=== PATIENT | female | born 1945 | race Caucasian/White ===

== ENCOUNTER 2017-08-26 17:47 | Inpatient (IN) | payer MEDICARE ==
[~2017-08-26] VITALS: Ht 165.1 cm; Wt 65.5 kg
[2017-08-26] MEDS ORDERED: FERR324T8 PO (18:42)
[2017-08-26] MEDS ORDERED: DONE5TAB7 PO (18:42)
[2017-08-26] MEDS ORDERED: ASCO500T2 PO (18:42)
[2017-08-26] MEDS ORDERED: PANT40TA5 PO (18:42)
[2017-08-26] MEDS ORDERED: ONDA4TAB7 PO (18:42)
[2017-08-26] MEDS ORDERED: BISA5TAB4 PO (18:42)
[2017-08-26] MEDS ORDERED: ESCITALOPRAM OX20 MG PO (18:42)
[2017-08-26] MEDS ORDERED: MAGN400O7 PO (18:42)
[2017-08-26] MEDS ORDERED: CALC500T PO (18:42)
[2017-08-26] MEDS ORDERED: LORA-434 PO (18:42)
[2017-08-26] MEDS ORDERED: ACET500T68 PO (18:42)
[2017-08-26] MEDS ORDERED: METHYL SALICYLATE/MENTHOL TOPICAL OINTMENT 29GM TUBE. TP PRN (19:30)
[2017-08-26] MEDS ORDERED: MAG HYDROX/AL HYDROX/SIMETH 30 ML ORAL.SUSP PO PRN (19:30)
[2017-08-26] MEDS ORDERED: MAGNESIUM HYDROXIDE 2,400 MG/30 ML ORAL.SUSP. PO PRN (19:30)
[2017-08-26] MEDS ORDERED: BISACODYL TAB 5 MG TABLET.DR. PO PRN (19:45)
[2017-08-26] MEDS ORDERED: CALCIUM CARBONATE 500 MG TABLET PO PRN (19:45)
[2017-08-26 20:18] LABS: BASO % 1 % (0-3); EOS # 0.1 x10^3/uL (0.0-0.7); EOS % 2 % (0-3); HEMATOCRIT 41.1 % (36.0-47.0); HEMOGLOBIN 13.7 g/dL (12.0-15.5); LYMPH # 2.1 x10^3/uL (1.0-4.8); LYMPH % 31 % (24-48); MEAN CORPUSCULAR HEMOGLOBIN 31 pg (25-35); MEAN CORPUSCULAR HGB CONC 33 g/dL (31-37); MEAN CORPUSCULAR VOLUME 92 fL (79-100); MONO # 0.6 x10^3/uL (0.0-1.1); MONO % 9 % (0-9); NEUT # 3.9 x10^3uL (1.8-7.7); NEUT % 57 % (31-73); PLATELET COUNT 231 x10^3/uL (140-400); RED BLOOD COUNT 4.49 x10^6/uL (3.50-5.40); RED CELL DISTRIBUTION WIDTH 13.8 % (11.5-14.5); WHITE BLOOD COUNT 6.9 x10^3/uL (4.0-11.0)
[2017-08-26 20:26] LABS: ALBUMIN 3.1 g/dL (3.4-5.0); CALCIUM 9.3 mg/dL (8.5-10.1); CREATININE 0.9 mg/dL (0.6-1.0); GFR 61.4; POTASSIUM 3.9 mmol/L (3.5-5.1); TOTAL BILIRUBIN 0.3 mg/dL (0.2-1.0); TOTAL PROTEIN 6.3 g/dL (6.4-8.2)
[2017-08-26 20:49] VITALS: BP 147/92
[2017-08-26] MEDS: LORazepam 1 MG TABLET PO SCH (20:54)
[2017-08-26] MEDS: ASCORBIC ACID 500 MG TABLET PO SCH (20:54)
[2017-08-27 06:12] VITALS: BP 168/80
[2017-08-27 06:24] LABS: BILIRUBIN,URINE NEG (NEG); CLARITY,URINE CLEAR; COLOR,URINE YELLOW; GLUCOSE,URINE NEG (NEG); NITRITE,URINE NEG (NEG); RBC,URINE OCC /HPF (0-2); UROBILINOGEN,URINE 0.2 mg/dL (0.2 mg/dL)
[2017-08-27 06:25] LABS: BACTERIA,URINE 0 /HPF (0-FEW); HYALINE CASTS, URINE OCC /HPF; SQUAMOUS EPITHELIAL CELL,UR FEW /LPF
[2017-08-27] MEDS: LORazepam 1 MG TABLET PO SCH ×4 (07:48→19:41)
[2017-08-27] MEDS: ASCORBIC ACID 500 MG TABLET PO SCH ×2 (07:48→19:41)
[2017-08-27] MEDS: CITALOPRAM 20 MG TABLET. PO SCH (07:51)
[2017-08-27] MEDS: DONEPEZIL HCL 5 MG TABLET. PO SCH (07:52)
[2017-08-27] MEDS: PANTOPRAZOLE 40 MG TABLET. PO SCH (07:52)
[2017-08-27] MEDS: FERROUS GLUCONATE 324 MG TABLET PO SCH ×2 (08:07→18:06)
[2017-08-27 12:02] LABS: THYROID STIM HORMONE (TSH) 6.93 uIU/mL (0.358-3.740)
[2017-08-27 12:07] LABS: T3 TOTAL 108 ng/dL (71-180); THYROXINE 6.8 ug/dL (4.5-12.0)
[2017-08-27 16:22] VITALS: BP 128/85
[2017-08-27 17:21] LABS: HEMOGLOBIN A1C 5.2 % (4.8-5.6)
[2017-08-28 06:08] VITALS: BP 168/92
[2017-08-28] MEDS: LORazepam 1 MG TABLET PO SCH ×4 (09:37→19:47)
[2017-08-28] MEDS: ASCORBIC ACID 500 MG TABLET PO SCH ×2 (09:37→19:47)
[2017-08-28] MEDS: DONEPEZIL HCL 5 MG TABLET. PO SCH (09:37)
[2017-08-28] MEDS: CITALOPRAM 20 MG TABLET. PO SCH (09:38)
[2017-08-28] MEDS: PANTOPRAZOLE 40 MG TABLET. PO SCH (09:38)
[2017-08-28] MEDS: FERROUS GLUCONATE 324 MG TABLET PO SCH ×2 (09:40→17:07)
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
[2017-08-28] MEDS: CYANOCOBALAMIN (VITAMIN B-12) 1,000 MCG/ML VIAL IM SCH (14:17)
[2017-08-28] MEDS: CHOLECALCIFEROL (VITAMIN D3) 50,000 UNIT CAPSULE PO SCH (14:17)
[2017-08-28 16:13] VITALS: BP 147/92
[2017-08-29 05:48] VITALS: BP 171/89
[2017-08-29] MEDS: LORazepam 1 MG TABLET PO SCH ×3 (08:37→19:20)
[2017-08-29] MEDS: SERTRALINE 50 MG TABLET. PO SCH (08:37)
[2017-08-29] MEDS: ASCORBIC ACID 500 MG TABLET PO SCH ×2 (08:37→19:18)
[2017-08-29] MEDS: CYANOCOBALAMIN (VITAMIN B-12) 1,000 MCG/ML VIAL IM SCH (08:37)
[2017-08-29] MEDS: PANTOPRAZOLE 40 MG TABLET. PO SCH (08:37)
[2017-08-29] MEDS: DONEPEZIL HCL 5 MG TABLET. PO SCH (08:37)
[2017-08-29] MEDS: FERROUS GLUCONATE 324 MG TABLET PO SCH ×2 (08:37→17:00)
[2017-08-29] MEDS ORDERED: FLU VACC QS2017-18 (36MOS+)/PF 0.5 ML SYRINGE. VAX IM ONE (09:00)
[2017-08-29] MEDS ORDERED: PNEUMOC CONJ VACC 23-VALENT 0.5 ML VIAL. VAX IM ONE (09:00)
[2017-08-29 15:46] VITALS: BP 129/82
--- NOTE | 2017-08-29 18:23 | PN ---
DATE: 08/27/2017 This is a late entry for 08/27/2017 covers elements not covered in my initial note of 08/27/2017. SUBJECTIVE: Reviewed information from Dr. Agudelo, discussed with nursing staff. The patient remains confused, withdrawn and quite impulsive, refused to use the walker, has an unsteady gait, has scoliosis, takes naps off and on during the day. REVIEW OF SYSTEMS: No CV, , pulmonary, eye system symptoms on review. Reliability poor. She had one sock off her foot, oblivious to what had happened and there is a fall risk. MENTAL STATUS EXAM: Oriented to herself. Insight, judgment, recent and remote memory, attention, concentration, fund of knowledge poor, consistent with her diagnosis mentioned in my initial note. IMPRESSION: Major neurocognitive disorder, Alzheimer, vascular with depression, delusion, behavioral disturbance. PLAN: Continue current psychotropics, Ativan is 1 mg 4 times a day and we will reduce it by 0.25 mg every 3 days till we bring it down to 2 mg a day. Continue Aricept, Celexa, along with Zyprexa p.r.n. for now and we will go ahead and change the Celexa to Zoloft 50 mg a day. I feel Zoloft would have a greater efficacy on her anxiety and impulsive symptoms as an antidepressant. She is medication compliant, wanders. REX ANGELES MD DR: ADA/norah JOB#: [id number] / [id number]
--- NOTE | 2017-08-29 22:20 | PN ---
DATE: 08/28/2017 This is a late entry for 08/28/2017 covers elements not covered in my initial note of 08/28/2017. SUBJECTIVE: I met with the patient evening of 08/28/2017. The patient slept 7 hours. She takes her medications whole, somewhat sedated, walking with her eyes closed, quite confused, aware of her name and date of , smiling at times, but not oriented to anything else. REVIEW OF SYSTEMS: Ambulation impaired, unsteady gait. No CV, , pulmonary, eye, ENT system symptoms on review. Reliability poor. MENTAL STATUS EXAM: Oriented to herself. Insight, judgment, recent and remote memory, attention, concentration, fund of knowledge poor, consistent with her diagnosis mentioned in my initial note. IMPRESSION: Major neurocognitive disorder, Alzheimer, vascular with depression, delusion, behavioral disturbance. PLAN: Taper the Ativan from 4 mg a day slowly down to 2 mg a day, Celexa was changed to Zoloft. Continue Aricept. Reduction of Ativan should help reduce the sedation and some of the confusion as well. MAN Ifeanyi ANGLEES MD DR: ADA/norah JOB#: [id number] / [id number]
[2017-08-30 06:06] VITALS: BP 161/96
[2017-08-30] MEDS: DONEPEZIL HCL 5 MG TABLET. PO SCH (09:14)
[2017-08-30] MEDS: SERTRALINE 50 MG TABLET. PO SCH (09:14)
[2017-08-30] MEDS: FERROUS GLUCONATE 324 MG TABLET PO SCH ×2 (09:14→17:00)
[2017-08-30] MEDS: CYANOCOBALAMIN (VITAMIN B-12) 1,000 MCG/ML VIAL IM SCH (09:14)
[2017-08-30] MEDS: ASCORBIC ACID 500 MG TABLET PO SCH ×2 (09:14→19:17)
[2017-08-30] MEDS: PANTOPRAZOLE 40 MG TABLET. PO SCH (09:14)
[2017-08-30] MEDS: LORazepam 1 MG TABLET PO SCH ×3 (09:15→19:17)
[2017-08-30 16:08] VITALS: BP 111/69
--- NOTE | 2017-08-30 22:02 | PN ---
DATE: 08/29/2017 This is a late entry for 08/29/2017 and covers elements not covered in my initial note of 08/29/2017. I met with the patient the evening of 08/29/2017. The patient has not been aggressive, remains confused, walks with her eyes closed, refuses to talk. REVIEW OF SYSTEMS: Ambulation impaired, with walker. Often refuses to use walker. No CV, , pulmonary, eye, ENT system symptoms on review. MENTAL STATUS EXAM: Oriented to herself. Insight, judgment, recent and remote memory, attention, concentration, fund of knowledge poor, consistent with her diagnosis as mentioned in my initial note. IMPRESSION: Major neurocognitive disorder, Alzheimer, vascular with depression, delusion, behavioral disturbance. Rest unchanged. PLAN: Continue current psychotropics, taper the Ativan gradually. Maintain Zoloft, Aricept, may need to add Seroquel as a mood stabilizer. MAN Ifeanyi ANGELES MD DR: ADA/norah JOB#: [id number] / [id number]
[2017-08-31 05:52] VITALS: BP 147/87
[2017-08-31] MEDS: PANTOPRAZOLE 40 MG TABLET. PO SCH (07:47)
[2017-08-31] MEDS: SERTRALINE 50 MG TABLET. PO SCH (08:34)
[2017-08-31] MEDS: ASCORBIC ACID 500 MG TABLET PO SCH ×2 (08:34→19:15)
[2017-08-31] MEDS: FERROUS GLUCONATE 324 MG TABLET PO SCH ×2 (08:34→17:36)
[2017-08-31] MEDS: CYANOCOBALAMIN (VITAMIN B-12) 1,000 MCG/ML VIAL IM SCH (08:35)
[2017-08-31] MEDS: LORazepam 1 MG TABLET PO SCH ×2 (08:37→13:53)
[2017-08-31] MEDS: DONEPEZIL HCL 10 MG TABLET PO SCH (08:37)
[2017-08-31 15:18] VITALS: BP 111/68
[2017-09-01 05:49] VITALS: BP 134/54
[2017-09-01] MEDS: PANTOPRAZOLE 40 MG TABLET. PO SCH (07:42)
[2017-09-01] MEDS: ASCORBIC ACID 500 MG TABLET PO SCH ×2 (08:38→20:13)
[2017-09-01] MEDS: DONEPEZIL HCL 10 MG TABLET PO SCH (08:38)
[2017-09-01] MEDS: SERTRALINE 50 MG TABLET. PO SCH (08:38)
[2017-09-01] MEDS: CYANOCOBALAMIN (VITAMIN B-12) 1,000 MCG/ML VIAL IM SCH (08:38)
[2017-09-01] MEDS: FERROUS GLUCONATE 324 MG TABLET PO SCH ×2 (08:38→17:05)
[2017-09-01 15:49] VITALS: BP 141/77
[2017-09-01] MEDS: LORazepam 0.5 MG TABLET PO SCH (20:13)
--- NOTE | 2017-09-01 23:53 | PN ---
DATE: 08/30/2017 This is a late entry for 08/30/2017 and covers elements not covered in my initial note of 08/30/2017. I met with the patient the evening of 08/30/2017. The patient has been pleasant, quiet, walks with her eyes closed, but less so since Ativan is being reduced, not aggressive. REVIEW OF SYSTEMS: Ambulation impaired. No CV, , pulmonary, eye, ENT system symptoms on review. Reliability poor. MENTAL STATUS EXAM: Oriented to herself. Insight, judgment, recent and remote memory, attention, concentration, fund of knowledge poor, consistent with her diagnosis as mentioned in my initial note. IMPRESSION: Major neurocognitive disorder, Alzheimer, vascular with depression, delusion, behavioral disturbance. Rest unchanged. PLAN: Increase Aricept to 10 mg a day, taper the Ativan. Continue rest unchanged. MAN Ifeanyi ANGELES MD DR: ADA/norah JOB#: [id number] / [id number]
--- NOTE | 2017-09-02 03:49 | PN ---
DATE: 08/31/2017 This is late entry, date of service 08/31/2017 covers elements not covered in my initial note of 08/31/2017. I met with the patient in the evening of 08/31/2017 and staffed at a treatment team meeting with the entire team morning of 08/31/2017. We attempted to call the patient's daughter, Betsey Abarca, but she was unavailable to attend the treatment team meeting. She remains confused, but little more awake as that Ativan is being tapered. REVIEW OF SYSTEMS: Ambulation impaired. No CV, , pulmonary, eye, ENT system symptoms on review. Reliability poor. MENTAL STATUS EXAM: Oriented to herself. Insight, judgment, recent and remote memory, attention, concentration, fund of knowledge poor, consistent with her diagnosis. LABORATORY DATA: Reviewed. IMPRESSION: Major neurocognitive disorder, Alzheimer, vascular with depression, delusion, behavioral disturbance. Rest unchanged. PLAN: Continue current psychotropics. Taper the Ativan. Maintain Zoloft. Adjust further as clinically indicated. REX ANGELES MD DR: ADA/norah JOB#: [id number] / [id number]
[2017-09-02 05:45] VITALS: BP 168/88
[2017-09-02 07:33] LABS: BASO % 1 % (0-3); EOS # 0.1 x10^3/uL (0.0-0.7); EOS % 2 % (0-3); HEMATOCRIT 44.4 % (36.0-47.0); HEMOGLOBIN 15.1 g/dL (12.0-15.5); LYMPH # 1.5 x10^3/uL (1.0-4.8); LYMPH % 26 % (24-48); MEAN CORPUSCULAR HEMOGLOBIN 31 pg (25-35); MEAN CORPUSCULAR HGB CONC 34 g/dL (31-37); MEAN CORPUSCULAR VOLUME 91 fL (79-100); MONO # 0.5 x10^3/uL (0.0-1.1); MONO % 9 % (0-9); NEUT # 3.6 x10^3uL (1.8-7.7); NEUT % 63 % (31-73); PLATELET COUNT 235 x10^3/uL (140-400); RED BLOOD COUNT 4.89 x10^6/uL (3.50-5.40); RED CELL DISTRIBUTION WIDTH 13.8 % (11.5-14.5); WHITE BLOOD COUNT 5.8 x10^3/uL (4.0-11.0)
[2017-09-02] MEDS: DONEPEZIL HCL 10 MG TABLET PO SCH (07:43)
[2017-09-02] MEDS: PANTOPRAZOLE 40 MG TABLET. PO SCH (07:43)
[2017-09-02] MEDS: SERTRALINE 50 MG TABLET. PO SCH (07:43)
[2017-09-02] MEDS: ASCORBIC ACID 500 MG TABLET PO SCH ×2 (07:43→19:23)
[2017-09-02] MEDS: FERROUS GLUCONATE 324 MG TABLET PO SCH ×2 (07:45→16:49)
[2017-09-02] MEDS: LORazepam 0.5 MG TABLET PO SCH ×3 (07:45→19:25)
[2017-09-02 08:03] LABS: ALBUMIN 3.4 g/dL (3.4-5.0); CALCIUM 9.4 mg/dL (8.5-10.1); CREATININE 0.8 mg/dL (0.6-1.0); GFR 70.3; MAGNESIUM 2.1 mg/dL (1.8-2.4); POTASSIUM 3.8 mmol/L (3.5-5.1); TOTAL BILIRUBIN 0.4 mg/dL (0.2-1.0); TOTAL PROTEIN 6.9 g/dL (6.4-8.2)
[2017-09-02 16:14] VITALS: BP 124/83
[2017-09-03 05:42] VITALS: BP 16/88
[2017-09-03] MEDS: DONEPEZIL HCL 10 MG TABLET PO SCH (07:51)
[2017-09-03] MEDS: PANTOPRAZOLE 40 MG TABLET. PO SCH (07:51)
[2017-09-03] MEDS: SERTRALINE 50 MG TABLET. PO SCH (07:51)
[2017-09-03] MEDS: ASCORBIC ACID 500 MG TABLET PO SCH ×2 (07:51→19:49)
[2017-09-03] MEDS: FERROUS GLUCONATE 324 MG TABLET PO SCH ×2 (07:53→17:50)
[2017-09-03] MEDS: LORazepam 0.5 MG TABLET PO SCH ×3 (07:53→19:49)
[2017-09-03 16:01] VITALS: BP 143/89
[2017-09-03] MEDS: ACETAMINOPHEN 325 MG TABLET PO PRN (19:49)
--- NOTE | 2017-09-04 00:05 | PN ---
DATE: 09/01/2017 PSYCHIATRIC PROGRESS NOTE This is a late entry for 09/01/2017, covers elements not covered in my initial note 09/01/2017. SUBJECTIVE: I met with the patient the evening of 09/01/2017. Overall, the patient has been more awake, keeping her eyes more open, smiling, but makes bizarre statements like "fox fox, I am going to kill you" to one of the other patients. She slept 7-3/4 hours previous evening. REVIEW OF SYSTEMS: No CV, , pulmonary, eye, ENT system symptoms on review. Reliability poor. MENTAL STATUS EXAM: Oriented to herself. Insight, judgment, recent and remote memory, attention, concentration, fund of knowledge poor, consistent with her diagnosis mentioned in my initial note. IMPRESSION: Major neurocognitive disorder, Alzheimer, vascular with depression, delusion, behavioral disturbance. PLAN: Continue current psychotropics mentioned in the initial note. Taper the Ativan. Consider low dose Seroquel if needed for agitation and psychosis. MAN Ifeanyi ANGELES MD DR: ADA/norah JOB#: [id number] / [id number]
--- NOTE | 2017-09-04 00:23 | PN ---
DATE: 09/02/2017 PSYCHIATRIC PROGRESS NOTE This is a late entry of 09/02/2017 covers elements not covered in my initial note of 09/02/2017. I met with the patient in the evening of 09/02/2017. Overall, the patient has been more awake, alert, but certainly very confused. No further threats made to other patients. The reduction of Ativan seems to be helping her wakefulness. REVIEW OF SYSTEMS: No CV, , pulmonary, eye, ENT system symptoms on review. Reliability is poor. MENTAL STATUS EXAM: Oriented to herself. Insight, judgment, recent and remote memory, attention, concentration, fund of knowledge poor, consistent with her diagnosis mentioned in my initial note. IMPRESSION: Major neurocognitive disorder, Alzheimer, vascular with depression, delusion, behavioral disturbance. PLAN: Continue current psychotropics mentioned in my initial note. Adjust further as clinically indicated. MAN Ifeanyi ANGELES MD DR: ADA/norah JOB#: [id number] / [id number]
[2017-09-04 05:53] VITALS: BP 163/88
[2017-09-04] MEDS: ASCORBIC ACID 500 MG TABLET PO SCH ×2 (09:18→20:04)
[2017-09-04] MEDS: PANTOPRAZOLE 40 MG TABLET. PO SCH (09:18)
[2017-09-04] MEDS: DONEPEZIL HCL 10 MG TABLET PO SCH (09:18)
[2017-09-04] MEDS: LORazepam 0.5 MG TABLET PO SCH ×4 (09:20→20:05)
[2017-09-04] MEDS: FERROUS GLUCONATE 324 MG TABLET PO SCH ×2 (09:20→16:42)
[2017-09-04] MEDS: CHOLECALCIFEROL (VITAMIN D3) 50,000 UNIT CAPSULE PO SCH (09:22)
[2017-09-04 16:25] VITALS: BP 125/80
--- NOTE | 2017-09-05 04:55 | PN ---
DATE: 09/03/2017 This is a late entry 09/03/2017 covers elements not covered in my initial note of 09/03/2017. I met with the patient in the evening of 09/03/2017. The patient had a good day. Still repeatedly stating "I am going to kill you." She is smiling at this time, quite confused. REVIEW OF SYSTEMS: Ambulation impaired. Gait unsteady, but no falls noted. No CV, , pulmonary, eye, ENT system symptoms on review. Reliability poor. MENTAL STATUS EXAM: Oriented to herself. Insight, judgment, recent and remote memory, attention, concentration, fund of knowledge poor, consistent with her diagnosis mentioned in my initial note. IMPRESSION: Major neurocognitive disorder, Alzheimer's, vascular with depression, delusion, behavioral disturbance, obsessive-compulsive disorder. PLAN: Change Zoloft to Luvox 25 mg a day for 2 days, then 50 mg a day thereafter for her obsessive, repetitive verbalizations. Continue rest unchanged. Taper the Ativan. REX ANGELES MD DR: ADA/norah JOB#: [id number] / [id number]
[2017-09-05 06:47] VITALS: BP 110/76
[2017-09-05] MEDS: FERROUS GLUCONATE 324 MG TABLET PO SCH ×2 (08:00→16:50)
[2017-09-05] MEDS: ASCORBIC ACID 500 MG TABLET PO SCH ×2 (08:00→18:58)
[2017-09-05] MEDS: DONEPEZIL HCL 10 MG TABLET PO SCH (08:00)
[2017-09-05] MEDS: PANTOPRAZOLE 40 MG TABLET. PO SCH (08:00)
[2017-09-05] MEDS: QUEtiapine 25 MG TABLET. PO SCH ×2 (08:01→12:15)
[2017-09-05] MEDS: LORazepam 0.5 MG TABLET PO SCH ×3 (08:02→18:58)
[2017-09-05 15:57] VITALS: BP 126/75
--- NOTE | 2017-09-05 22:00 | PN ---
DATE: 09/04/2017 PSYCHIATRIC PROGRESS NOTE This late entry 09/04/2017 covers elements, not covered in my initial note of 09/04/2017. Overall, per nursing report, the patient slept 7-1/4 hours previous evening somewhat more irritable, labile, emotional, repeatedly making statements "I am going to kill you." She smiles as she says this with no intention and certainly no comprehension of what she is saying more of an obsessive, repetitive verbalization. She was striking out at staff at one point, wants her parents to come visit her. REVIEW OF SYSTEMS: No CV, , pulmonary, eye, ENT system symptoms on review. Reliability poor, pleasant, smiling, verbal as I met with her, oblivious of her surroundings. MENTAL STATUS EXAM: Oriented to herself. Insight, judgment, recent and remote memory, attention, concentration, fund of knowledge poor, consistent with her diagnosis mentioned in my initial note. IMPRESSION: Major neurocognitive disorder, Alzheimer, vascular with depression, delusion, behavioral disturbance. PLAN: Continue current psychotropics mentioned in my initial note. Start Seroquel 12.5 mg 9 a.m., 1:00 p.m. increase Luvox gradually. MAN Ifeanyi ANGELES MD DR: ADA/norah JOB#: [id number] / [id number]
[2017-09-06 06:18] VITALS: BP 169/88
[2017-09-06] MEDS: DONEPEZIL HCL 10 MG TABLET PO SCH (08:22)
[2017-09-06] MEDS: PANTOPRAZOLE 40 MG TABLET. PO SCH (08:22)
[2017-09-06] MEDS: ASCORBIC ACID 500 MG TABLET PO SCH ×2 (08:22→19:25)
[2017-09-06] MEDS: FERROUS GLUCONATE 324 MG TABLET PO SCH ×2 (08:22→17:07)
[2017-09-06] MEDS: QUEtiapine 25 MG TABLET. PO SCH ×2 (08:24→13:01)
[2017-09-06] MEDS: LORazepam 0.5 MG TABLET PO SCH ×3 (08:25→19:27)
[2017-09-06 16:41] VITALS: BP 138/84
[2017-09-06] MEDS: MIRTAZAPINE 7.5 MG TABLET. PO SCH (19:25)
--- NOTE | 2017-09-06 22:36 | PN ---
DATE: 09/05/2017 This late entry, date of service 09/05/2017, covers elements not covered in my initial note 09/05/2017. Met with the patient evening of 09/05/2017. SUBJECTIVE: The patient slept reasonably well 8-1/4 hours, took her medications in the morning, but in the afternoon was making vague statements of "I hate your daughter, just shut your mouth." A few minutes later, she was found smiling at the same nursing staff. She was talking about wanting to get in the car. REVIEW OF SYSTEMS: No CV, , pulmonary, eye, ENT system symptoms on review. Reliability poor. MENTAL STATUS EXAM: Oriented to herself. Insight, judgment, recent and remote memory, attention, concentration, fund of knowledge poor, consistent with her diagnosis mentioned in my initial note. IMPRESSION: Major neurocognitive disorder, Alzheimer, vascular with depression, delusion, behavioral disturbance. Rest unchanged. PLAN: Continue to gradually increase the Luvox. Rest psychotropics will be continued per in my initial note. MAN Ifeanyi ANGELES MD DR: ADA/norah JOB#: [id number] / [id number]
[2017-09-07] MEDS: ACETAMINOPHEN 325 MG TABLET PO PRN (05:34)
[2017-09-07 05:56] VITALS: BP 184/97
[2017-09-07] MEDS: FERROUS GLUCONATE 324 MG TABLET PO SCH ×2 (08:21→17:09)
[2017-09-07] MEDS: QUEtiapine 25 MG TABLET. PO SCH ×2 (08:21→12:23)
[2017-09-07] MEDS: DONEPEZIL HCL 10 MG TABLET PO SCH (08:22)
[2017-09-07] MEDS: PANTOPRAZOLE 40 MG TABLET. PO SCH (08:22)
[2017-09-07] MEDS: ASCORBIC ACID 500 MG TABLET PO SCH ×2 (08:22→19:28)
[2017-09-07] MEDS: LORazepam 0.5 MG TABLET PO SCH ×3 (08:23→19:27)
[2017-09-07 15:35] VITALS: BP 129/69
[2017-09-07] MEDS: MIRTAZAPINE 7.5 MG TABLET. PO SCH (19:28)
[2017-09-08 05:57] VITALS: BP 144/76
[2017-09-08] MEDS: ASCORBIC ACID 500 MG TABLET PO SCH ×2 (07:32→19:27)
[2017-09-08] MEDS: PANTOPRAZOLE 40 MG TABLET. PO SCH (07:32)
[2017-09-08] MEDS: QUEtiapine 25 MG TABLET. PO SCH ×2 (07:32→12:43)
[2017-09-08] MEDS: DONEPEZIL HCL 10 MG TABLET PO SCH (07:33)
[2017-09-08] MEDS: FERROUS GLUCONATE 324 MG TABLET PO SCH ×2 (07:35→12:43)
[2017-09-08] MEDS: LIDOCAINE (700MG/PATCH) PATCH. TD SCH (07:35)
[2017-09-08] MEDS: LORazepam 0.5 MG TABLET PO SCH ×3 (07:37→21:00)
[2017-09-08 16:04] VITALS: BP 156/79
[2017-09-08] MEDS: MIRTAZAPINE 7.5 MG TABLET. PO SCH (19:27)
[2017-09-09 06:34] VITALS: BP 130/80
[2017-09-09] MEDS: DONEPEZIL HCL 10 MG TABLET PO SCH (07:38)
[2017-09-09] MEDS: LIDOCAINE (700MG/PATCH) PATCH. TD SCH (07:38)
[2017-09-09] MEDS: ASCORBIC ACID 500 MG TABLET PO SCH ×2 (07:38→19:47)
[2017-09-09] MEDS: PANTOPRAZOLE 40 MG TABLET. PO SCH (07:38)
[2017-09-09] MEDS: LORazepam 0.5 MG TABLET PO SCH ×3 (07:41→19:51)
[2017-09-09] MEDS: FERROUS GLUCONATE 324 MG TABLET PO SCH ×2 (07:41→13:07)
[2017-09-09] MEDS: QUEtiapine 25 MG TABLET. PO SCH ×3 (07:41→18:19)
--- NOTE | 2017-09-09 07:51 | PN ---
DATE: 09/06/2017 PSYCHIATRIC PROGRESS NOTE This is a late entry 09/06/2017 covers elements not covered in my initial note 09/06/2017. SUBJECTIVE: Per nursing report, the patient was quite hateful, sarcastic, irritable the previous evening, slept 3-1/2 hours. Meds had to be syringed in the morning and she was irritable morning of 09/06/2017 with her medication administration as well. REVIEW OF SYSTEMS: No CV, , pulmonary, eye, ENT system symptoms on review. Reliability poor. MENTAL STATUS EXAM: Oriented to herself. Insight, judgment, recent and remote memory, attention, concentration, fund of knowledge poor, consistent with her diagnosis mentioned in my initial note. IMPRESSION: Major neurocognitive disorder, Alzheimer, vascular with depression, delusion, behavioral disturbance. Rest unchanged. PLAN: Start Remeron 7.5 mg p.o. at bedtime. Continue Rest unchanged. Remeron should help with her insomnia, anxiety, mood lability as well and we are tapering her Ativan. REX ANGELES MD DR: ADA/norah JOB#: [id number] / [id number]
[2017-09-09 08:21] LABS: BASO % 0 % (0-3); EOS # 0.1 x10^3/uL (0.0-0.7); EOS % 2 % (0-3); HEMATOCRIT 45.6 % (36.0-47.0); HEMOGLOBIN 15.3 g/dL (12.0-15.5); LYMPH # 1.4 x10^3/uL (1.0-4.8); LYMPH % 21 % (24-48); MEAN CORPUSCULAR HEMOGLOBIN 31 pg (25-35); MEAN CORPUSCULAR HGB CONC 34 g/dL (31-37); MEAN CORPUSCULAR VOLUME 91 fL (79-100); MONO # 0.6 x10^3/uL (0.0-1.1); MONO % 9 % (0-9); NEUT # 4.5 x10^3uL (1.8-7.7); NEUT % 68 % (31-73); PLATELET COUNT 235 x10^3/uL (140-400); RED CELL DISTRIBUTION WIDTH 13.7 % (11.5-14.5); WHITE BLOOD COUNT 6.5 x10^3/uL (4.0-11.0)
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
[2017-09-09 08:48] LABS: ALBUMIN 3.6 g/dL (3.4-5.0); CALCIUM 9.4 mg/dL (8.5-10.1); CREATININE 0.8 mg/dL (0.6-1.0); GFR 70.3; POTASSIUM 3.9 mmol/L (3.5-5.1); TOTAL BILIRUBIN 0.6 mg/dL (0.2-1.0); TOTAL PROTEIN 7.3 g/dL (6.4-8.2)
[2017-09-09 16:54] VITALS: BP 123/87
[2017-09-09] MEDS: MIRTAZAPINE 7.5 MG TABLET. PO SCH (19:47)
[2017-09-10 06:23] VITALS: BP 161/77
[2017-09-10] MEDS: LIDOCAINE (700MG/PATCH) PATCH. TD SCH (07:29)
[2017-09-10] MEDS: PANTOPRAZOLE 40 MG TABLET. PO SCH (07:29)
[2017-09-10] MEDS: QUEtiapine 25 MG TABLET. PO SCH ×3 (07:29→18:31)
[2017-09-10] MEDS: FERROUS GLUCONATE 324 MG TABLET PO SCH ×2 (07:29→18:30)
[2017-09-10] MEDS: ASCORBIC ACID 500 MG TABLET PO SCH ×2 (07:29→19:26)
[2017-09-10] MEDS: DONEPEZIL HCL 10 MG TABLET PO SCH (07:29)
[2017-09-10] MEDS: LORazepam 0.5 MG TABLET PO SCH ×3 (07:33→19:29)
--- NOTE | 2017-09-10 13:00 | PN ---
DATE: 09/08/2017 This late entry, 09/08/2017, covers elements not covered in my initial note of 09/08/2017. SUBJECTIVE: I met with the patient the evening of 09/08/2017. The patient slept 7-1/2 hours, somewhat labile in the evening, did better during the day. Previous night she was labile, delusional, hallucinating. She makes rather detrimental and sarcastic remarks to others, oblivious of what she is doing including "I will kill you." REVIEW OF SYSTEMS: No CV, , pulmonary, eye, ENT system symptoms on review. She ambulates significantly bent forward at her waist looking at the ground. MENTAL STATUS EXAM: Oriented to herself. Insight, judgment, recent and remote memory, attention, concentration, fund of knowledge poor, consistent with her diagnosis mentioned in my initial note. IMPRESSION: Major neurocognitive disorder, Alzheimer's, vascular with depression, delusion, behavioral disturbance. Rest unchanged. PLAN: Continue current psychotropics. Taper the Ativan. May need to increase Seroquel. Starting 09/09/2017, we will increase the Seroquel from 12.5 mg 0900 and 1300 to 12.5 mg 0900, 1300, and 1700. Continue rest unchanged including Luvox, Remeron, Aricept, and Zyprexa p.r.n. REX ANGELES MD DR: ADA/norah JOB#: [id number] / [id number]
[2017-09-10 15:53] VITALS: BP 107/67
[2017-09-10] MEDS: MIRTAZAPINE 7.5 MG TABLET. PO SCH (19:26)
--- NOTE | 2017-09-10 22:43 | PN ---
DATE: 09/09/2017 This is a late entry of 09/09/2017 and covers the elements not covered in my initial note of 09/09/2017. SUBJECTIVE: I met with the patient in the evening of 09/09/2017. She was a little agitated prior to supper calling staff "idiots," but oblivious of what she is doing and no real reason for it at times. At times, she is pleasantly confused, compliant with meds and assessment. REVIEW OF SYSTEMS: No CV, , pulmonary, eye, ENT system symptoms on review. Reliability poor. She ambulates by herself bent at a 45 degree angle at her waist forward. MENTAL STATUS EXAM: Insight, judgment, recent and remote memory, attention, concentration, fund of knowledge poor, consistent with her diagnosis mentioned in my initial note. IMPRESSION: Major neurocognitive disorder, Alzheimer, vascular with depression, delusion, behavioral disturbance. PLAN: Taper the Ativan. Maintain rest of the psychotropics noted in my initial note. REX ANGELES MD DR: ADA/norah JOB#: [id number] / [id number]
[2017-09-11 06:07] VITALS: BP 186/79
[2017-09-11] MEDS: DONEPEZIL HCL 10 MG TABLET PO SCH (08:44)
[2017-09-11] MEDS: CHOLECALCIFEROL (VITAMIN D3) 50,000 UNIT CAPSULE PO SCH (08:44)
[2017-09-11] MEDS: PANTOPRAZOLE 40 MG TABLET. PO SCH (08:44)
[2017-09-11] MEDS: FERROUS GLUCONATE 324 MG TABLET PO SCH ×2 (08:44→17:16)
[2017-09-11] MEDS: ASCORBIC ACID 500 MG TABLET PO SCH ×2 (08:45→19:25)
[2017-09-11] MEDS: LIDOCAINE (700MG/PATCH) PATCH. TD SCH (08:46)
[2017-09-11] MEDS: QUEtiapine 25 MG TABLET. PO SCH ×3 (08:46→17:17)
[2017-09-11] MEDS: LORazepam 0.5 MG TABLET PO SCH ×2 (08:49→19:23)
[2017-09-11 15:52] VITALS: BP 110/73
[2017-09-11] MEDS: MIRTAZAPINE 7.5 MG TABLET. PO SCH (19:25)
[2017-09-12 06:03] VITALS: BP 165/79
[2017-09-12] MEDS: DONEPEZIL HCL 10 MG TABLET PO SCH (08:05)
[2017-09-12] MEDS: ASCORBIC ACID 500 MG TABLET PO SCH ×2 (08:06→19:14)
[2017-09-12] MEDS: QUEtiapine 25 MG TABLET. PO SCH ×3 (08:06→17:54)
[2017-09-12] MEDS: PANTOPRAZOLE 40 MG TABLET. PO SCH (08:06)
[2017-09-12] MEDS: LORazepam 0.5 MG TABLET PO SCH ×2 (08:09→19:13)
[2017-09-12] MEDS: LIDOCAINE (700MG/PATCH) PATCH. TD SCH (08:10)
[2017-09-12] MEDS: FERROUS GLUCONATE 324 MG TABLET PO SCH ×2 (08:11→17:54)
[2017-09-12 16:18] VITALS: BP 105/71
[2017-09-12] MEDS: MIRTAZAPINE 7.5 MG TABLET. PO SCH (19:14)
--- NOTE | 2017-09-12 22:48 | PN ---
DATE: 09/11/2017 This is a late entry, 09/11/2017, covers the elements not covered in my initial note, 09/11/2017. SUBJECTIVE: I met with the patient in the evening of 09/11/2017. The patient slept 5-1/2 hours previous evening. She was having some visual hallucinations the previous evening, talking to someone, and saying her son was sitting in front of her when no one was there. She is agitated before dinner. REVIEW OF SYSTEMS: No CV, , pulmonary, eye, ENT system symptoms on review. Reliability poor. MENTAL STATUS EXAM: Oriented to herself. Insight, judgment, recent and remote memory, attention, concentration, fund of knowledge poor, consistent with her diagnoses. IMPRESSION: Major neurocognitive disorder, Alzheimer, vascular with delusion, depression, behavioral disturbance. PLAN: Continue psychotropics as mentioned in my initial note. Ativan is being tapered, should help her be more awake during the day, less slumped forward, and if needed, we will increase the Seroquel further. MAN Ifeanyi ANGELES MD DR: ADA/norah JOB#: [id number] / [id number]
--- NOTE | 2017-09-12 22:55 | PN ---
DATE: 09/10/2017 This late entry for 09/10/2017 covers elements not covered in my initial note of 09/10/2017. SUBJECTIVE: Overall, the patient remains confused, somewhat irritable in the afternoon, required p.r.n. x 1. Zyprexa at 02:15 p.m. She makes rather abrasive comments to staff at times, "I will kill you" and then smiles. She certainly has no intent or appreciation of what she is saying either consequent to her dementia. REVIEW OF SYSTEMS: No CV, , pulmonary, eye, ENT system symptoms on review. She ambulates, bend significantly forward at her hip, but able to raise her head and look at me as we met and smile. MENTAL STATUS EXAM: Oriented to herself. Insight, judgment, recent and remote memory, attention, concentration, fund of knowledge poor, consistent with her diagnosis. LABORATORY DATA: Reviewed. IMPRESSION: Major neurocognitive disorder, Alzheimer, vascular with depression, delusion, behavioral disturbance. Rest unchanged. PLAN: Continue current psychotropics. We will consider increasing Seroquel further, perhaps Luvox in an attempt to increase the efficacy for her obsessive verbalizations. May also consider adding Depakote as a mood stabilizer, but given the fact that she has already bent forward in her walking, the Depakote may worsen some of the sedation, but we will see over the next day or so. REX ANGELES MD DR: ADA/norah JOB#: [id number] / [id number]
[2017-09-13 05:39] VITALS: BP 133/80
[2017-09-13] MEDS: PANTOPRAZOLE 40 MG TABLET. PO SCH (08:06)
[2017-09-13] MEDS: DONEPEZIL HCL 10 MG TABLET PO SCH (08:06)
[2017-09-13] MEDS: QUEtiapine 25 MG TABLET. PO SCH ×4 (08:07→20:48)
[2017-09-13] MEDS: ASCORBIC ACID 500 MG TABLET PO SCH ×2 (08:07→20:48)
[2017-09-13] MEDS: LIDOCAINE (700MG/PATCH) PATCH. TD SCH (08:08)
[2017-09-13] MEDS: FERROUS GLUCONATE 324 MG TABLET PO SCH ×2 (08:10→16:19)
[2017-09-13] MEDS: LORazepam 0.5 MG TABLET PO SCH ×2 (08:11→20:48)
[2017-09-13] MEDS: ACETAMINOPHEN 325 MG TABLET PO PRN (13:50)
[2017-09-13 16:30] VITALS: BP 122/82
--- NOTE | 2017-09-13 19:26 | PDOC ---
Exam Note: Jarrod Note: Late entry for 08.28.2017. Please also refer to the separate dictated note~for this date of service dictated separately.~Patient seen individually. Discussed the patient with Nursing staff reviewed the chart.~Reviewed interim history and current functioning. Reviewed vital signs,~Labs/ Radiology~and current medications noted below. Continue current treatment with the changes noted in the dictated addendum note Assessment: Vital Signs: Intake and Output 09/13/17 07:00 Intake Total 960 ml Balance 960 ml Intake Oral 960 ml # Voids 1 Vital Signs Date Time Temp Pulse Resp B/P (MAP) Pulse Ox O2 Delivery O2 Flow Rate FiO2 09/13/17 16:30 98.0 80 19 122/82 (95) 96 09/13/17 05:39 Room Air I&O Intake and Output 09/13/17 07:00 Intake Total 960 ml Balance 960 ml Intake Oral 960 ml # Voids 1 Current Medications: Meds: Current Medications Acetaminophen (Tylenol) 650 mg PRN Q6HRS PRN PO PAIN / TEMP Last administered on 09/13/17at 13:50; Start 08/26/17 at 19:30 Multi-Ingredient Ointment (Analgesic [place]) 1 serg PRN QID PRN TP MUSCLE PAIN; Start 08/26/17 at 19:30 Al Hydroxide/Mg Hydroxide (Mylanta Plus Xs) 15 ml PRN AFTMEALHC PRN PO DYSPEPSIA; Start 08/26/17 at 19:30 Magnesium Hydroxide (Milk Of Magnesia) 2,400 mg PRN QHS PRN PO CONSTIPATION; Start 08/26/17 at 19:30 Donepezil HCl (Aricept) 5 mg DAILY PO Last administered on 08/30/17at 09:14; Start 08/27/17 at 09:00; Stop 08/30/17 at 18:58; Status DC Lorazepam (Ativan) 1 mg QID PO Last administered on 08/28/17at 17:07; Start at 21:00; Stop 08/28/17 at 17:55; Status DC Citalopram Hydrobromide (CeleXA) 40 mg DAILY PO Last administered on 08/28/17at 09:38; Start 08/27/17 at 09:00; Stop 08/28/17 at 17:41; Status DC Ascorbic Acid (Vitamin C) 500 mg BID PO Last administered on 09/13/17at 08:07; Start 08/26/17 at 21:00 Bisacodyl (Dulcolax Tab) 10 mg PRN DAILY PRN PO CONSTIPATION; Start 08/26/17 at 19:45 Calcium Carbonate/ Glycine (Oscal) 500 mg PRN Q4HRS PRN PO DYSPEPSIA; Start 08/26/17 at 19:45 Ferrous Gluconate (Fergon) 324 mg BIDWMEALS PO Last administered on 09/13/17at 16:19; Start 08/27/17 at 08:00 Pantoprazole Sodium (Protonix) 40 mg DAILYAC PO Last administered on 09/13/17at 08:06; Start 08/27/17 at 07:30 Olanzapine (ZyPREXA ZYDIS) 2.5 mg PRN Q2HR PRN PO ANXIETY / AGITATION Last administered on 09/13/17at 16:18; Start 08/26/17 at 20:30 Vitamin D (Vitamin D3) 50,000 unit WEEKLY PO Last administered on 09/11/17at 08: 44; Start 08/28/17 at 14:00 Cyanocobalamin (Vitamin B-12) 1,000 mcg DAILY IM Last administered on 09/01/17at 08:38; Start 08/28/17 at 14:00; Stop 09/01/17 at 13:59; Status DC Cyanocobalamin (Vitamin B-12) 1,000 mcg [id number] IM ; Start 09/25/17 at 09:00 Influenza Virus Vaccine Quadrival (Fluarix Quad [id number] Syringe) 0.5 ml ONCE ONCE VAX IM Last administered on 08/29/17at 10:07; Start 08/29/17 at 09:00; Stop 08/29/17 at 09:01; Status DC Pneumococcal Polyvalent Vaccine (Pneumovax 23) 0.5 ml ONCE ONCE VAX IM Last administered on 08/29/17at 10:08; Start 08/29/17 at 09:00; Stop 08/29/17 at 09:01; Status DC Sertraline HCl (Zoloft) 50 mg DAILY PO Last administered on 09/03/17at 07:51; Start 08/29/17 at 09:00; Stop 09/03/17 at 21:48; Status DC Lorazepam (Ativan) 1 mg TID PO Last administered on 08/31/17at 13:53; Start at 21:00; Stop 08/31/17 at 20:59; Status DC Lorazepam (Ativan) 0.75 mg TID PO Last administered on 09/04/17at 09:20; Start 09/01/17 at 21:00; Stop 09/04/17 at 20:59; Status DC Lorazepam (Ativan) 0.75 mg BID PO Last administered on 09/08/17at 07:37; Start 09/04/17 at 21:00; Stop 09/08/17 at 12:55; Status DC Lorazepam (Ativan) 0.5 mg DAILY@1400 PO Last administered on 09/07/17at 14:24; Start 09/04/17 at 14:00; Stop 09/07/17 at 18:46; Status DC Donepezil HCl (Aricept) 10 mg DAILY PO Last administered on 09/13/17at 08:06; Start 08/31/17 at 09:00 Fluvoxamine Maleate (Luvox) 25 mg DAILY PO Last administered on 09/05/17at 08:00 ; Start 09/04/17 at 09:00; Stop 09/06/17 at 08:59; Status DC Fluvoxamine Maleate (Luvox) 50 mg DAILY PO ; Start 09/04/17 at 09:00; Stop 09/04 at 09:00; Status DC Fluvoxamine Maleate (Luvox) 50 mg DAILY PO Last administered on 09/13/17at 08:06 ; Start 09/06/17 at 09:00 Quetiapine Fumarate (SEROquel) 12.5 mg BID@0900,1300 PO Last administered on at 12:43; Start 09/05/17 at 09:00; Stop 09/08/17 at 18:51; Status DC Mirtazapine (Remeron) 7.5 mg QHS PO Last administered on 09/12/17at 19:14; Start 09/06/17 at 21:00 Lorazepam (Ativan) 0.25 mg DAILY@1400 PO Last administered on 09/10/17at 13:26; Start 09/08/17 at 14:00; Stop 09/10/17 at 21:00; Status DC Lidocaine (Lidoderm) 1 patch DAILY TD Last administered on 09/13/17at 08:08; Start 09/08/17 at 09:00 Lorazepam (Ativan) 0.5 mg PRN DAILY PRN PO ANXIETY / AGITATION; Start 09/16/17 at 19:45; Stop 09/16/17 at 19:45; Status DC Lorazepam (Ativan) 0.75 mg PRN QHS PRN PO ANXIETY / AGITATION; Start 09/16/17 at 21:00; Stop 09/16/17 at 21:00; Status DC Lorazepam (Ativan) 0.75 mg Taper DAILY PO Last administered on 09/13/17at 08:11 ; Start 09/09/17 at 09:00; Stop 09/26/17 at 08:59 Lorazepam (Ativan) 0.75 mg Taper QHS PO Last administered on 09/12/17at 19:13; Start 09/08/17 at 21:00; Stop 09/29/17 at 20:59 Quetiapine Fumarate (SEROquel) 12.5 mg TID@0900,1300,1700 PO Last administered on 09/13/17at 16:19; Start 09/09/17 at 09:00; Stop 09/13/17 at 18:46; Status DC Quetiapine Fumarate (SEROquel) 12.5 mg QID PO ; Start 09/13/17 at 21:00 Active Scripts Active Reported Zofran (Ondansetron Hcl) 4 Mg Tablet 4 Mg PO PRN Q6HRS PRN Vitamin C (Ascorbic Acid) 500 Mg Tablet 500 Mg PO BID Calcium Carbonate 500 Mg Tablet 500 Mg PO PRN Q4HRS PRN Pantoprazole Sodium 40 Mg Tablet.dr 40 Mg PO DAILY Milk Of Magnesia (Magnesium Hydroxide) 400 Mg/5 Ml Oral.susp 30 Ml PO PRN DAILY PRN Escitalopram Oxalate 20 Mg Tablet 20 Mg PO DAILY Ferrous Gluconate 324 Mg Tablet 324 Mg PO BID Donepezil Hcl 5 Mg Tablet 5 Mg PO DAILY Bisacodyl 5 Mg Tablet.dr 10 Mg PO PRN DAILY PRN Ativan (Lorazepam) 1 Mg Tablet 1 Mg PO QID Acetaminophen 500 Mg Tablet 500 Mg PO PRN Q4HRS PRN I have reviewed the current psychotropics carefully including drug interactions. Risk benefit ratio favors no change other than as noted in my dictated progress note. Diagnosis: Problems: (1) Major neurocognitive disorder, due to vascular disease, with behavioral disturbance, mild (2) Alzheimer's dementia (3) Behavior problem (4) Delusion REX ANGELES MD Sep 13, 2017 19:26
--- NOTE | 2017-09-13 19:30 | PDOC ---
Exam Note: Jarrod Note: Late entry for 08.31.2017. Please also refer to the separate dictated note~for this date of service dictated separately.~Patient seen individually. Discussed the patient with Nursing staff reviewed the chart.~Reviewed interim history and current functioning. Reviewed vital signs,~Labs/ Radiology~and current medications noted below. Continue current treatment with the changes noted in the dictated addendum note Assessment: Vital Signs: Vital Signs Date Time Temp Pulse Resp B/P (MAP) Pulse Ox O2 Delivery O2 Flow Rate FiO2 09/13/17 16:30 98.0 80 19 122/82 (95) 96 09/13/17 05:39 Room Air I&O Intake and Output 09/13/17 07:00 Intake Total 960 ml Balance 960 ml Intake Oral 960 ml # Voids 1 Current Medications: Meds: Current Medications Acetaminophen (Tylenol) 650 mg PRN Q6HRS PRN PO PAIN / TEMP Last administered on 09/13/17at 13:50; Start 08/26/17 at 19:30 Multi-Ingredient Ointment (Analgesic [place]) 1 serg PRN QID PRN TP MUSCLE PAIN; Start 08/26/17 at 19:30 Al Hydroxide/Mg Hydroxide (Mylanta Plus Xs) 15 ml PRN AFTMEALHC PRN PO DYSPEPSIA; Start 08/26/17 at 19:30 Magnesium Hydroxide (Milk Of Magnesia) 2,400 mg PRN QHS PRN PO CONSTIPATION; Start 08/26/17 at 19:30 Donepezil HCl (Aricept) 5 mg DAILY PO Last administered on 08/30/17at 09:14; Start 08/27/17 at 09:00; Stop 08/30/17 at 18:58; Status DC Lorazepam (Ativan) 1 mg QID PO Last administered on 08/28/17at 17:07; Start at 21:00; Stop 08/28/17 at 17:55; Status DC Citalopram Hydrobromide (CeleXA) 40 mg DAILY PO Last administered on 08/28/17at 09:38; Start 08/27/17 at 09:00; Stop 08/28/17 at 17:41; Status DC Ascorbic Acid (Vitamin C) 500 mg BID PO Last administered on 09/13/17at 08:07; Start 08/26/17 at 21:00 Bisacodyl (Dulcolax Tab) 10 mg PRN DAILY PRN PO CONSTIPATION; Start 08/26/17 at 19:45 Calcium Carbonate/ Glycine (Oscal) 500 mg PRN Q4HRS PRN PO DYSPEPSIA; Start 08/26/17 at 19:45 Ferrous Gluconate (Fergon) 324 mg BIDWMEALS PO Last administered on 09/13/17at 16:19; Start 08/27/17 at 08:00 Pantoprazole Sodium (Protonix) 40 mg DAILYAC PO Last administered on 09/13/17at 08:06; Start 08/27/17 at 07:30 Olanzapine (ZyPREXA ZYDIS) 2.5 mg PRN Q2HR PRN PO ANXIETY / AGITATION Last administered on 09/13/17at 16:18; Start 08/26/17 at 20:30 Vitamin D (Vitamin D3) 50,000 unit WEEKLY PO Last administered on 09/11/17at 08: 44; Start 08/28/17 at 14:00 Cyanocobalamin (Vitamin B-12) 1,000 mcg DAILY IM Last administered on 09/01/17at 08:38; Start 08/28/17 at 14:00; Stop 09/01/17 at 13:59; Status DC Cyanocobalamin (Vitamin B-12) 1,000 mcg [id number] IM ; Start 09/25/17 at 09:00 Influenza Virus Vaccine Quadrival (Fluarix Quad [id number] Syringe) 0.5 ml ONCE ONCE VAX IM Last administered on 08/29/17at 10:07; Start 08/29/17 at 09:00; Stop 08/29/17 at 09:01; Status DC Pneumococcal Polyvalent Vaccine (Pneumovax 23) 0.5 ml ONCE ONCE VAX IM Last administered on 08/29/17at 10:08; Start 08/29/17 at 09:00; Stop 08/29/17 at 09:01; Status DC Sertraline HCl (Zoloft) 50 mg DAILY PO Last administered on 09/03/17at 07:51; Start 08/29/17 at 09:00; Stop 09/03/17 at 21:48; Status DC Lorazepam (Ativan) 1 mg TID PO Last administered on 08/31/17at 13:53; Start at 21:00; Stop 08/31/17 at 20:59; Status DC Lorazepam (Ativan) 0.75 mg TID PO Last administered on 09/04/17at 09:20; Start 09/01/17 at 21:00; Stop 09/04/17 at 20:59; Status DC Lorazepam (Ativan) 0.75 mg BID PO Last administered on 09/08/17at 07:37; Start 09/04/17 at 21:00; Stop 09/08/17 at 12:55; Status DC Lorazepam (Ativan) 0.5 mg DAILY@1400 PO Last administered on 09/07/17at 14:24; Start 09/04/17 at 14:00; Stop 09/07/17 at 18:46; Status DC Donepezil HCl (Aricept) 10 mg DAILY PO Last administered on 09/13/17at 08:06; Start 08/31/17 at 09:00 Fluvoxamine Maleate (Luvox) 25 mg DAILY PO Last administered on 09/05/17at 08:00 ; Start 09/04/17 at 09:00; Stop 09/06/17 at 08:59; Status DC Fluvoxamine Maleate (Luvox) 50 mg DAILY PO ; Start 09/04/17 at 09:00; Stop 09/04 at 09:00; Status DC Fluvoxamine Maleate (Luvox) 50 mg DAILY PO Last administered on 09/13/17at 08:06 ; Start 09/06/17 at 09:00 Quetiapine Fumarate (SEROquel) 12.5 mg BID@0900,1300 PO Last administered on at 12:43; Start 09/05/17 at 09:00; Stop 09/08/17 at 18:51; Status DC Mirtazapine (Remeron) 7.5 mg QHS PO Last administered on 09/12/17at 19:14; Start 09/06/17 at 21:00 Lorazepam (Ativan) 0.25 mg DAILY@1400 PO Last administered on 09/10/17at 13:26; Start 09/08/17 at 14:00; Stop 09/10/17 at 21:00; Status DC Lidocaine (Lidoderm) 1 patch DAILY TD Last administered on 09/13/17at 08:08; Start 09/08/17 at 09:00 Lorazepam (Ativan) 0.5 mg PRN DAILY PRN PO ANXIETY / AGITATION; Start 09/16/17 at 19:45; Stop 09/16/17 at 19:45; Status DC Lorazepam (Ativan) 0.75 mg PRN QHS PRN PO ANXIETY / AGITATION; Start 09/16/17 at 21:00; Stop 09/16/17 at 21:00; Status DC Lorazepam (Ativan) 0.75 mg Taper DAILY PO Last administered on 09/13/17at 08:11 ; Start 09/09/17 at 09:00; Stop 09/26/17 at 08:59 Lorazepam (Ativan) 0.75 mg Taper QHS PO Last administered on 09/12/17at 19:13; Start 09/08/17 at 21:00; Stop 09/29/17 at 20:59 Quetiapine Fumarate (SEROquel) 12.5 mg TID@0900,1300,1700 PO Last administered on 09/13/17at 16:19; Start 09/09/17 at 09:00; Stop 09/13/17 at 18:46; Status DC Quetiapine Fumarate (SEROquel) 12.5 mg QID PO ; Start 09/13/17 at 21:00 Active Scripts Active Reported Zofran (Ondansetron Hcl) 4 Mg Tablet 4 Mg PO PRN Q6HRS PRN Vitamin C (Ascorbic Acid) 500 Mg Tablet 500 Mg PO BID Calcium Carbonate 500 Mg Tablet 500 Mg PO PRN Q4HRS PRN Pantoprazole Sodium 40 Mg Tablet.dr 40 Mg PO DAILY Milk Of Magnesia (Magnesium Hydroxide) 400 Mg/5 Ml Oral.susp 30 Ml PO PRN DAILY PRN Escitalopram Oxalate 20 Mg Tablet 20 Mg PO DAILY Ferrous Gluconate 324 Mg Tablet 324 Mg PO BID Donepezil Hcl 5 Mg Tablet 5 Mg PO DAILY Bisacodyl 5 Mg Tablet.dr 10 Mg PO PRN DAILY PRN Ativan (Lorazepam) 1 Mg Tablet 1 Mg PO QID Acetaminophen 500 Mg Tablet 500 Mg PO PRN Q4HRS PRN I have reviewed the current psychotropics carefully including drug interactions. Risk benefit ratio favors no change other than as noted in my dictated progress note. REX ANGELES MD Sep 13, 2017 19:30
[2017-09-13] MEDS: MIRTAZAPINE 7.5 MG TABLET. PO SCH (20:48)
--- NOTE | 2017-09-13 21:22 | PN ---
DATE: 09/12/2017 PSYCHIATRIC PROGRESS NOTE This is a late entry of 09/12/2017 covers elements not covered in my initial note of 09/12/2017. Per nursing report, the patient remains confused, compliant with medications, somewhat delusional, telling the nursing staff that her father built this hospital, slept 6-3/4 hours previous evening, less abrasive and not using profanities as before, which is an improvement. REVIEW OF SYSTEMS: No CV, , pulmonary, eye, ENT system symptoms on review. Reliability is poor. MENTAL STATUS EXAM: Oriented to herself. Insight, judgment, recent and remote memory, attention, concentration, fund of knowledge poor, consistent with her diagnosis. IMPRESSION: Major neurocognitive disorder, Alzheimer, vascular with depression, delusion, behavioral disturbance. Rest unchanged. PLAN: Continue psychotropics mentioned in my initial note. MAN Ifeanyi ANGELES MD DR: ADA/norah JOB#: [id number] / [id number]
[2017-09-14 06:14] VITALS: BP 166/80
[2017-09-14] MEDS: DONEPEZIL HCL 10 MG TABLET PO SCH (07:53)
[2017-09-14] MEDS: QUEtiapine 25 MG TABLET. PO SCH ×4 (07:53→19:52)
[2017-09-14] MEDS: ASCORBIC ACID 500 MG TABLET PO SCH ×2 (07:53→19:52)
[2017-09-14] MEDS: PANTOPRAZOLE 40 MG TABLET. PO SCH (07:53)
[2017-09-14] MEDS: LORazepam 0.5 MG TABLET PO SCH ×2 (07:56→19:59)
[2017-09-14] MEDS: FERROUS GLUCONATE 324 MG TABLET PO SCH ×2 (07:56→16:45)
[2017-09-14] MEDS: LIDOCAINE (700MG/PATCH) PATCH. TD SCH (09:07)
[2017-09-14 16:18] VITALS: BP 129/83
--- NOTE | 2017-09-14 19:42 | PDOC ---
Exam Note: Jarrod Note: Please also refer to the separate dictated note~for this date of service dictated separately.~Patient seen individually. Discussed the patient with Nursing staff reviewed the chart.~Reviewed interim history and current functioning. Reviewed vital signs,~Labs/ Radiology~and current medications noted below. Continue current treatment with the changes noted in the dictated addendum note Assessment: Vital Signs: Vital Signs Date Time Temp Pulse Resp B/P (MAP) Pulse Ox O2 Delivery O2 Flow Rate FiO2 09/14/17 16:18 98.6 83 16 129/83 (98) 94 Room Air I&O Intake and Output 09/14/17 07:00 Intake Total 1020 ml Balance 1020 ml Intake Oral 1020 ml # Voids 1 Current Medications: Meds: Current Medications Acetaminophen (Tylenol) 650 mg PRN Q6HRS PRN PO PAIN / TEMP Last administered on 09/13/17at 13:50; Start 08/26/17 at 19:30 Multi-Ingredient Ointment (Analgesic [place]) 1 serg PRN QID PRN TP MUSCLE PAIN; Start 08/26/17 at 19:30 Al Hydroxide/Mg Hydroxide (Mylanta Plus Xs) 15 ml PRN AFTMEALHC PRN PO DYSPEPSIA; Start 08/26/17 at 19:30 Magnesium Hydroxide (Milk Of Magnesia) 2,400 mg PRN QHS PRN PO CONSTIPATION; Start 08/26/17 at 19:30 Donepezil HCl (Aricept) 5 mg DAILY PO Last administered on 08/30/17at 09:14; Start 08/27/17 at 09:00; Stop 08/30/17 at 18:58; Status DC Lorazepam (Ativan) 1 mg QID PO Last administered on 08/28/17at 17:07; Start at 21:00; Stop 08/28/17 at 17:55; Status DC Citalopram Hydrobromide (CeleXA) 40 mg DAILY PO Last administered on 08/28/17at 09:38; Start 08/27/17 at 09:00; Stop 08/28/17 at 17:41; Status DC Ascorbic Acid (Vitamin C) 500 mg BID PO Last administered on 09/14/17at 07:53; Start 08/26/17 at 21:00 Bisacodyl (Dulcolax Tab) 10 mg PRN DAILY PRN PO CONSTIPATION; Start 08/26/17 at 19:45 Calcium Carbonate/ Glycine (Oscal) 500 mg PRN Q4HRS PRN PO DYSPEPSIA; Start 08/26/17 at 19:45 Ferrous Gluconate (Fergon) 324 mg BIDWMEALS PO Last administered on 09/14/17at 16:45; Start 08/27/17 at 08:00 Pantoprazole Sodium (Protonix) 40 mg DAILYAC PO Last administered on 09/14/17at 07:53; Start 08/27/17 at 07:30 Olanzapine (ZyPREXA ZYDIS) 2.5 mg PRN Q2HR PRN PO ANXIETY / AGITATION Last administered on 09/13/17 16:18; Start 08/26/17 at 20:30 Vitamin D (Vitamin D3) 50,000 unit WEEKLY PO Last administered on 09/11/17at 08: 44; Start 08/28/17 at 14:00 Cyanocobalamin (Vitamin B-12) 1,000 mcg DAILY IM Last administered on 09/01/17at 08:38; Start 08/28/17 at 14:00; Stop 09/01/17 at 13:59; Status DC Cyanocobalamin (Vitamin B-12) 1,000 mcg [id number] IM ; Start 09/25/17 at 09:00 Influenza Virus Vaccine Quadrival (Fluarix Quad [id number] Syringe) 0.5 ml ONCE ONCE VAX IM Last administered on 08/29/17 10:07; Start 08/29/17 at 09:00; Stop 08/29/17 at 09:01; Status DC Pneumococcal Polyvalent Vaccine (Pneumovax 23) 0.5 ml ONCE ONCE VAX IM Last administered on 08/29/17at 10:08; Start 08/29/17 at 09:00; Stop 08/29/17 at 09:01; Status DC Sertraline HCl (Zoloft) 50 mg DAILY PO Last administered on 09/03/17at 07:51; Start 08/29/17 at 09:00; Stop 09/03/17 at 21:48; Status DC Lorazepam (Ativan) 1 mg TID PO Last administered on 08/31/17 13:53; Start at 21:00; Stop 08/31/17 at 20:59; Status DC Lorazepam (Ativan) 0.75 mg TID PO Last administered on 09/04/17at 09:20; Start 09/01/17 at 21:00; Stop 09/04/17 at 20:59; Status DC Lorazepam (Ativan) 0.75 mg BID PO Last administered on 09/08/17at 07:37; Start 09/04/17 at 21:00; Stop 09/08/17 at 12:55; Status DC Lorazepam (Ativan) 0.5 mg DAILY@1400 PO Last administered on 09/07/17at 14:24; Start 09/04/17 at 14:00; Stop 09/07/17 at 18:46; Status DC Donepezil HCl (Aricept) 10 mg DAILY PO Last administered on 09/14/17at 07:53; Start 08/31/17 at 09:00 Fluvoxamine Maleate (Luvox) 25 mg DAILY PO Last administered on 09/05/17at 08:00 ; Start 09/04/17 at 09:00; Stop 09/06/17 at 08:59; Status DC Fluvoxamine Maleate (Luvox) 50 mg DAILY PO ; Start 09/04/17 at 09:00; Stop 09/04 at 09:00; Status DC Fluvoxamine Maleate (Luvox) 50 mg DAILY PO Last administered on 09/14/17at 07:53 ; Start 09/06/17 at 09:00 Quetiapine Fumarate (SEROquel) 12.5 mg BID@0900,1300 PO Last administered on at 12:43; Start 09/05/17 at 09:00; Stop 09/08/17 at 18:51; Status DC Mirtazapine (Remeron) 7.5 mg QHS PO Last administered on 09/13/17at 20:48; Start 09/06/17 at 21:00 Lorazepam (Ativan) 0.25 mg DAILY@1400 PO Last administered on 09/10/17at 13:26; Start 09/08/17 at 14:00; Stop 09/10/17 at 21:00; Status DC Lidocaine (Lidoderm) 1 patch DAILY TD Last administered on 09/14/17at 09:07; Start 09/08/17 at 09:00 Lorazepam (Ativan) 0.5 mg PRN DAILY PRN PO ANXIETY / AGITATION; Start 09/16/17 at 19:45; Stop 09/16/17 at 19:45; Status DC Lorazepam (Ativan) 0.75 mg PRN QHS PRN PO ANXIETY / AGITATION; Start 09/16/17 at 21:00; Stop 09/16/17 at 21:00; Status DC Lorazepam (Ativan) 0.5 mg Taper DAILY PO Last administered on 09/14/17at 07:56; Start 09/09/17 at 09:00; Stop 09/26/17 at 08:59 Lorazepam (Ativan) 0.75 mg Taper QHS PO Last administered on 09/13/17at 20:48; Start 09/08/17 at 21:00; Stop 09/29/17 at 20:59 Quetiapine Fumarate (SEROquel) 12.5 mg TID@0900,1300,1700 PO Last administered on 09/13/17at 16:19; Start 09/09/17 at 09:00; Stop 09/13/17 at 18:46; Status DC Quetiapine Fumarate (SEROquel) 12.5 mg QID PO Last administered on 09/14/17at 16 :45; Start 09/13/17 at 21:00 Active Scripts Active Reported Zofran (Ondansetron Hcl) 4 Mg Tablet 4 Mg PO PRN Q6HRS PRN Vitamin C (Ascorbic Acid) 500 Mg Tablet 500 Mg PO BID Calcium Carbonate 500 Mg Tablet 500 Mg PO PRN Q4HRS PRN Pantoprazole Sodium 40 Mg Tablet.dr 40 Mg PO DAILY Milk Of Magnesia (Magnesium Hydroxide) 400 Mg/5 Ml Oral.susp 30 Ml PO PRN DAILY PRN Escitalopram Oxalate 20 Mg Tablet 20 Mg PO DAILY Ferrous Gluconate 324 Mg Tablet 324 Mg PO BID Donepezil Hcl 5 Mg Tablet 5 Mg PO DAILY Bisacodyl 5 Mg Tablet.dr 10 Mg PO PRN DAILY PRN Ativan (Lorazepam) 1 Mg Tablet 1 Mg PO QID Acetaminophen 500 Mg Tablet 500 Mg PO PRN Q4HRS PRN I have reviewed the current psychotropics carefully including drug interactions. Risk benefit ratio favors no change other than as noted in my dictated progress note. Diagnosis: Problems: (1) Major neurocognitive disorder, due to vascular disease, with behavioral disturbance, mild (2) Alzheimer's dementia (3) Behavior problem (4) Delusion REX ANGELES MD Sep 14, 2017 19:42
[2017-09-14] MEDS: MIRTAZAPINE 7.5 MG TABLET. PO SCH (19:52)
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
[2017-09-15 06:07] VITALS: BP 140/80
[2017-09-15] MEDS: LIDOCAINE (700MG/PATCH) PATCH. TD SCH (07:59)
[2017-09-15] MEDS: LORazepam 0.5 MG TABLET PO SCH ×2 (07:59→19:41)
[2017-09-15] MEDS: ASCORBIC ACID 500 MG TABLET PO SCH ×2 (07:59→19:40)
[2017-09-15] MEDS: FERROUS GLUCONATE 324 MG TABLET PO SCH ×2 (07:59→17:16)
[2017-09-15] MEDS: PANTOPRAZOLE 40 MG TABLET. PO SCH (07:59)
[2017-09-15] MEDS: DONEPEZIL HCL 10 MG TABLET PO SCH (08:00)
[2017-09-15] MEDS: QUEtiapine 25 MG TABLET. PO SCH ×4 (08:00→19:40)
[2017-09-15 15:55] VITALS: BP 106/74
--- NOTE | 2017-09-15 19:24 | PDOC ---
Exam Note: Jarrod Note: Please also refer to the separate dictated note~for this date of service dictated separately.~Patient seen individually. Discussed the patient with Nursing staff reviewed the chart.~Reviewed interim history and current functioning. Reviewed vital signs,~Labs/ Radiology~and current medications noted below. Continue current treatment with the changes noted in the dictated addendum note Assessment: Vital Signs: Vital Signs Date Time Temp Pulse Resp B/P (MAP) Pulse Ox O2 Delivery O2 Flow Rate FiO2 09/15/17 15:55 98.2 76 18 106/74 (85) 96 09/14/17 16:18 Room Air I&O Intake and Output 09/15/17 07:00 Intake Total 960 ml Balance 960 ml Intake Oral 960 ml # Voids 1 # Bowel Movements 1 Current Medications: Meds: Current Medications Acetaminophen (Tylenol) 650 mg PRN Q6HRS PRN PO PAIN / TEMP Last administered on 09/13/17at 13:50; Start 08/26/17 at 19:30 Multi-Ingredient Ointment (Analgesic [place]) 1 serg PRN QID PRN TP MUSCLE PAIN; Start 08/26/17 at 19:30 Al Hydroxide/Mg Hydroxide (Mylanta Plus Xs) 15 ml PRN AFTMEALHC PRN PO DYSPEPSIA; Start 08/26/17 at 19:30 Magnesium Hydroxide (Milk Of Magnesia) 2,400 mg PRN QHS PRN PO CONSTIPATION; Start 08/26/17 at 19:30 Donepezil HCl (Aricept) 5 mg DAILY PO Last administered on 08/30/17at 09:14; Start 08/27/17 at 09:00; Stop 08/30/17 at 18:58; Status DC Lorazepam (Ativan) 1 mg QID PO Last administered on 08/28/17at 17:07; Start at 21:00; Stop 08/28/17 at 17:55; Status DC Citalopram Hydrobromide (CeleXA) 40 mg DAILY PO Last administered on 08/28/17at 09:38; Start 08/27/17 at 09:00; Stop 08/28/17 at 17:41; Status DC Ascorbic Acid (Vitamin C) 500 mg BID PO Last administered on 09/15/17at 07:59; Start 08/26/17 at 21:00 Bisacodyl (Dulcolax Tab) 10 mg PRN DAILY PRN PO CONSTIPATION; Start 08/26/17 at 19:45 Calcium Carbonate/ Glycine (Oscal) 500 mg PRN Q4HRS PRN PO DYSPEPSIA; Start 08/26/17 at 19:45 Ferrous Gluconate (Fergon) 324 mg BIDWMEALS PO Last administered on 09/15/17 17:16; Start 08/27/17 at 08:00 Pantoprazole Sodium (Protonix) 40 mg DAILYAC PO Last administered on 09/15/17at 07:59; Start 08/27/17 at 07:30 Olanzapine (ZyPREXA ZYDIS) 2.5 mg PRN Q2HR PRN PO ANXIETY / AGITATION Last administered on 09/13/17at 16:18; Start 08/26/17 at 20:30 Vitamin D (Vitamin D3) 50,000 unit WEEKLY PO Last administered on 09/11/17at 08: 44; Start 08/28/17 at 14:00 Cyanocobalamin (Vitamin B-12) 1,000 mcg DAILY IM Last administered on 09/01/17at 08:38; Start 08/28/17 at 14:00; Stop 09/01/17 at 13:59; Status DC Cyanocobalamin (Vitamin B-12) 1,000 mcg [id number] IM ; Start 09/25/17 at 09:00 Influenza Virus Vaccine Quadrival (Fluarix Quad [id number] Syringe) 0.5 ml ONCE ONCE VAX IM Last administered on 08/29/17 10:07; Start 08/29/17 at 09:00; Stop 08/29/17 at 09:01; Status DC Pneumococcal Polyvalent Vaccine (Pneumovax 23) 0.5 ml ONCE ONCE VAX IM Last administered on 08/29/17at 10:08; Start 08/29/17 at 09:00; Stop 08/29/17 at 09:01; Status DC Sertraline HCl (Zoloft) 50 mg DAILY PO Last administered on 09/03/17at 07:51; Start 08/29/17 at 09:00; Stop 09/03/17 at 21:48; Status DC Lorazepam (Ativan) 1 mg TID PO Last administered on 08/31/17at 13:53; Start at 21:00; Stop 08/31/17 at 20:59; Status DC Lorazepam (Ativan) 0.75 mg TID PO Last administered on 09/04/17at 09:20; Start 09/01/17 at 21:00; Stop 09/04/17 at 20:59; Status DC Lorazepam (Ativan) 0.75 mg BID PO Last administered on 09/08/17at 07:37; Start 09/04/17 at 21:00; Stop 09/08/17 at 12:55; Status DC Lorazepam (Ativan) 0.5 mg DAILY@1400 PO Last administered on 09/07/17at 14:24; Start 09/04/17 at 14:00; Stop 09/07/17 at 18:46; Status DC Donepezil HCl (Aricept) 10 mg DAILY PO Last administered on 09/15/17at 08:00; Start 08/31/17 at 09:00 Fluvoxamine Maleate (Luvox) 25 mg DAILY PO Last administered on 09/05/17at 08:00 ; Start 09/04/17 at 09:00; Stop 09/06/17 at 08:59; Status DC Fluvoxamine Maleate (Luvox) 50 mg DAILY PO ; Start 09/04/17 at 09:00; Stop 09/04 at 09:00; Status DC Fluvoxamine Maleate (Luvox) 50 mg DAILY PO Last administered on 09/15/17at 07:59 ; Start 09/06/17 at 09:00 Quetiapine Fumarate (SEROquel) 12.5 mg BID@0900,1300 PO Last administered on at 12:43; Start 09/05/17 at 09:00; Stop 09/08/17 at 18:51; Status DC Mirtazapine (Remeron) 7.5 mg QHS PO Last administered on 09/14/17at 19:52; Start 09/06/17 at 21:00 Lorazepam (Ativan) 0.25 mg DAILY@1400 PO Last administered on 09/10/17at 13:26; Start 09/08/17 at 14:00; Stop 09/10/17 at 21:00; Status DC Lidocaine (Lidoderm) 1 patch DAILY TD Last administered on 09/15/17at 07:59; Start 09/08/17 at 09:00 Lorazepam (Ativan) 0.5 mg PRN DAILY PRN PO ANXIETY / AGITATION; Start 09/16/17 at 19:45; Stop 09/16/17 at 19:45; Status DC Lorazepam (Ativan) 0.75 mg PRN QHS PRN PO ANXIETY / AGITATION; Start 09/16/17 at 21:00; Stop 09/16/17 at 21:00; Status DC Lorazepam (Ativan) 0.5 mg Taper DAILY PO Last administered on 09/15/17at 07:59; Start 09/09/17 at 09:00; Stop 09/26/17 at 08:59 Lorazepam (Ativan) 0.75 mg Taper QHS PO Last administered on 09/14/17at 19:59; Start 09/08/17 at 21:00; Stop 09/29/17 at 20:59 Quetiapine Fumarate (SEROquel) 12.5 mg TID@0900,1300,1700 PO Last administered on 09/13/17at 16:19; Start 09/09/17 at 09:00; Stop 09/13/17 at 18:46; Status DC Quetiapine Fumarate (SEROquel) 12.5 mg QID PO Last administered on 09/15/17at 17 :16; Start 09/13/17 at 21:00; Stop 09/15/17 at 18:27; Status DC Quetiapine Fumarate (SEROquel) 12.5 mg BID@1300,2100 PO ; Start 09/15/17 at 21: 00 Quetiapine Fumarate (SEROquel) 25 mg BID@0900,1700 PO ; Start 09/16/17 at 09:00 Active Scripts Active Reported Zofran (Ondansetron Hcl) 4 Mg Tablet 4 Mg PO PRN Q6HRS PRN Vitamin C (Ascorbic Acid) 500 Mg Tablet 500 Mg PO BID Calcium Carbonate 500 Mg Tablet 500 Mg PO PRN Q4HRS PRN Pantoprazole Sodium 40 Mg Tablet.dr 40 Mg PO DAILY Milk Of Magnesia (Magnesium Hydroxide) 400 Mg/5 Ml Oral.susp 30 Ml PO PRN DAILY PRN Escitalopram Oxalate 20 Mg Tablet 20 Mg PO DAILY Ferrous Gluconate 324 Mg Tablet 324 Mg PO BID Donepezil Hcl 5 Mg Tablet 5 Mg PO DAILY Bisacodyl 5 Mg Tablet.dr 10 Mg PO PRN DAILY PRN Ativan (Lorazepam) 1 Mg Tablet 1 Mg PO QID Acetaminophen 500 Mg Tablet 500 Mg PO PRN Q4HRS PRN I have reviewed the current psychotropics carefully including drug interactions. Risk benefit ratio favors no change other than as noted in my dictated progress note. Diagnosis: Problems: (1) Major neurocognitive disorder, due to vascular disease, with behavioral disturbance, mild (2) Alzheimer's dementia (3) Behavior problem (4) Delusion REX ANGELES MD Sep 15, 2017 19:24
[2017-09-15] MEDS: MIRTAZAPINE 7.5 MG TABLET. PO SCH (19:39)
--- NOTE | 2017-09-15 21:57 | PN ---
DATE: 09/14/2017 PSYCHIATRIC PROGRESS NOTE This is late entry of 09/14/2017 covers elements not covered in my initial note of 09/14/2017. HISTORY OF PRESENT ILLNESS: I met with the patient in the evening of 09/14/2017. The patient slept 7 hours. Appetite 95%, takes medications whole. Ativan is being tapered. Wandering at times, agitated, intermittently enjoys music. REVIEW OF SYSTEMS: No CV, , pulmonary, eye system symptoms on review. Ambulates, bent forward 45 degrees at waist. MENTAL STATUS EXAM: Oriented to herself. Insight, judgment, recent and remote memory, attention, concentration, fund of knowledge poor, consistent with her diagnosis mentioned in my initial note. IMPRESSION: Major neurocognitive disorder, Alzheimer, vascular with depression, delusion, behavioral disturbance. Rest unchanged. PLAN: Continue psychotropics mentioned in my initial note. MAN Ifeanyi ANGELES MD DR: ADA/norah JOB#: [id number] / [id number]
[2017-09-16 06:30] VITALS: BP 158/88
[2017-09-16] MEDS: PANTOPRAZOLE 40 MG TABLET. PO SCH (07:56)
[2017-09-16] MEDS: FERROUS GLUCONATE 324 MG TABLET PO SCH ×2 (07:57→16:19)
[2017-09-16] MEDS: DONEPEZIL HCL 10 MG TABLET PO SCH (07:57)
[2017-09-16] MEDS: QUEtiapine 25 MG TABLET. PO SCH ×4 (07:59→20:00)
[2017-09-16] MEDS: LORazepam 0.5 MG TABLET PO SCH ×2 (07:59→20:02)
[2017-09-16] MEDS: LIDOCAINE (700MG/PATCH) PATCH. TD SCH (08:00)
[2017-09-16] MEDS: ASCORBIC ACID 500 MG TABLET PO SCH ×2 (08:00→20:00)
[2017-09-16 09:11] LABS: BASO % 0 % (0-3); EOS # 0.1 x10^3/uL (0.0-0.7); EOS % 2 % (0-3); HEMATOCRIT 44.9 % (36.0-47.0); HEMOGLOBIN 14.8 g/dL (12.0-15.5); LYMPH # 1.7 x10^3/uL (1.0-4.8); LYMPH % 25 % (24-48); MEAN CORPUSCULAR HEMOGLOBIN 30 pg (25-35); MEAN CORPUSCULAR HGB CONC 33 g/dL (31-37); MEAN CORPUSCULAR VOLUME 92 fL (79-100); MONO # 0.5 x10^3/uL (0.0-1.1); MONO % 8 % (0-9); NEUT # 4.5 x10^3uL (1.8-7.7); NEUT % 65 % (31-73); PLATELET COUNT 248 x10^3/uL (140-400); RED CELL DISTRIBUTION WIDTH 13.8 % (11.5-14.5); WHITE BLOOD COUNT 6.8 x10^3/uL (4.0-11.0)
[2017-09-16 09:23] LABS: ALBUMIN 3.5 g/dL (3.4-5.0); ALBUMIN/GLOBULIN RATIO 0.9 (1.0-1.7); CALCIUM 9.4 mg/dL (8.5-10.1); CREATININE 0.8 mg/dL (0.6-1.0); GFR 70.3; TOTAL BILIRUBIN 0.3 mg/dL (0.2-1.0); TOTAL PROTEIN 7.3 g/dL (6.4-8.2)
[2017-09-16 16:03] VITALS: BP 161/81
[2017-09-16] MEDS ORDERED: LORazepam 0.5 MG TABLET PO PRN ×2 (19:45→21:00)
[2017-09-16] MEDS: MIRTAZAPINE 7.5 MG TABLET. PO SCH (20:00)
[2017-09-16] MEDS ORDERED: QUEtiapine 25 MG TABLET. PO SCH (21:00)
--- NOTE | 2017-09-16 21:49 | PDOC ---
Exam Note: Jarrod Note: Please also refer to the separate dictated note~for this date of service dictated separately.~Patient seen individually. Discussed the patient with Nursing staff reviewed the chart.~Reviewed interim history and current functioning. Reviewed vital signs,~Labs/ Radiology~and current medications noted below. Continue current treatment with the changes noted in the dictated addendum note Assessment: Vital Signs: Vital Signs Date Time Temp Pulse Resp B/P (MAP) Pulse Ox O2 Delivery O2 Flow Rate FiO2 09/16/17 16:03 98.6 89 18 161/81 (107) 97 09/14/17 16:18 Room Air I&O Intake and Output 09/16/17 07:00 Intake Total 1180 ml Balance 1180 ml Intake Oral 1180 ml # Voids 1 Labs: Laboratory Tests Test 09/16/17 08:50 White Blood Count 6.8 x10^3/uL (4.0-11.0) Red Blood Count 4.90 x10^6/uL (3.50-5.40) Hemoglobin 14.8 g/dL (12.0-15.5) Hematocrit 44.9 % (36.0-47.0) Mean Corpuscular Volume 92 fL (79-100) Mean Corpuscular Hemoglobin 30 pg (25-35) Mean Corpuscular Hemoglobin Concent 33 g/dL (31-37) Red Cell Distribution Width 13.8 % (11.5-14.5) Platelet Count 248 x10^3/uL (140-400) Neutrophils (%) (Auto) 65 % (31-73) Lymphocytes (%) (Auto) 25 % (24-48) Monocytes (%) (Auto) 8 % (0-9) Eosinophils (%) (Auto) 2 % (0-3) Basophils (%) (Auto) 0 % (0-3) Neutrophils # (Auto) 4.5 x10^3uL (1.8-7.7) Lymphocytes # (Auto) 1.7 x10^3/uL (1.0-4.8) Monocytes # (Auto) 0.5 x10^3/uL (0.0-1.1) Eosinophils # (Auto) 0.1 x10^3/uL (0.0-0.7) Basophils # (Auto) 0.0 x10^3/uL (0.0-0.2) Sodium Level 143 mmol/L (136-145) Potassium Level 4.0 mmol/L (3.5-5.1) Chloride Level 104 mmol/L (98-107) Carbon Dioxide Level 33 mmol/L (21-32) H Anion Gap 6 (6-14) Blood Urea Nitrogen 17 mg/dL (7-20) Creatinine 0.8 mg/dL (0.6-1.0) Estimated GFR (Cockcroft-Gault) 70.3 BUN/Creatinine Ratio 21 (6-20) H Glucose Level 109 mg/dL (70-99) H Calcium Level 9.4 mg/dL (8.5-10.1) Total Bilirubin 0.3 mg/dL (0.2-1.0) Aspartate Amino Transferase (AST) 33 U/L (15-37) Alanine Aminotransferase (ALT) 58 U/L (14-59) Alkaline Phosphatase 93 U/L (46-116) Total Protein 7.3 g/dL (6.4-8.2) Albumin 3.5 g/dL (3.4-5.0) Albumin/Globulin Ratio 0.9 (1.0-1.7) L Current Medications: Meds: Current Medications Acetaminophen (Tylenol) 650 mg PRN Q6HRS PRN PO PAIN / TEMP Last administered on 09/13/17at 13:50; Start 08/26/17 at 19:30 Multi-Ingredient Ointment (Analgesic [place]) 1 serg PRN QID PRN TP MUSCLE PAIN; Start 08/26/17 at 19:30 Al Hydroxide/Mg Hydroxide (Mylanta Plus Xs) 15 ml PRN AFTMEALHC PRN PO DYSPEPSIA; Start 08/26/17 at 19:30 Magnesium Hydroxide (Milk Of Magnesia) 2,400 mg PRN QHS PRN PO CONSTIPATION; Start 08/26/17 at 19:30 Donepezil HCl (Aricept) 5 mg DAILY PO Last administered on 08/30/17at 09:14; Start 08/27/17 at 09:00; Stop 08/30/17 at 18:58; Status DC Lorazepam (Ativan) 1 mg QID PO Last administered on 08/28/17at 17:07; Start at 21:00; Stop 08/28/17 at 17:55; Status DC Citalopram Hydrobromide (CeleXA) 40 mg DAILY PO Last administered on 08/28/17 09:38; Start 08/27/17 at 09:00; Stop 08/28/17 at 17:41; Status DC Ascorbic Acid (Vitamin C) 500 mg BID PO Last administered on 09/16/17at 20:00; Start 08/26/17 at 21:00 Bisacodyl (Dulcolax Tab) 10 mg PRN DAILY PRN PO CONSTIPATION; Start 08/26/17 at 19:45 Calcium Carbonate/ Glycine (Oscal) 500 mg PRN Q4HRS PRN PO DYSPEPSIA; Start 08/26/17 at 19:45 Ferrous Gluconate (Fergon) 324 mg BIDWMEALS PO Last administered on 09/16/17at 16:19; Start 08/27/17 at 08:00 Pantoprazole Sodium (Protonix) 40 mg DAILYAC PO Last administered on 09/16/17at 07:56; Start 08/27/17 at 07:30 Olanzapine (ZyPREXA ZYDIS) 2.5 mg PRN Q2HR PRN PO ANXIETY / AGITATION Last administered on 09/15/17at 20:59; Start 08/26/17 at 20:30 Vitamin D (Vitamin D3) 50,000 unit WEEKLY PO Last administered on 09/11/17at 08: 44; Start 08/28/17 at 14:00 Cyanocobalamin (Vitamin B-12) 1,000 mcg DAILY IM Last administered on 09/01/17at 08:38; Start 08/28/17 at 14:00; Stop 09/01/17 at 13:59; Status DC Cyanocobalamin (Vitamin B-12) 1,000 mcg [id number] IM ; Start 09/25/17 at 09:00 Influenza Virus Vaccine Quadrival (Fluarix Quad [id number] Syringe) 0.5 ml ONCE ONCE VAX IM Last administered on 08/29/17at 10:07; Start 08/29/17 at 09:00; Stop 08/29/17 at 09:01; Status DC Pneumococcal Polyvalent Vaccine (Pneumovax 23) 0.5 ml ONCE ONCE VAX IM Last administered on 08/29/17at 10:08; Start 08/29/17 at 09:00; Stop 08/29/17 at 09:01; Status DC Sertraline HCl (Zoloft) 50 mg DAILY PO Last administered on 09/03/17at 07:51; Start 08/29/17 at 09:00; Stop 09/03/17 at 21:48; Status DC Lorazepam (Ativan) 1 mg TID PO Last administered on 08/31/17at 13:53; Start at 21:00; Stop 08/31/17 at 20:59; Status DC Lorazepam (Ativan) 0.75 mg TID PO Last administered on 09/04/17at 09:20; Start 09/01/17 at 21:00; Stop 09/04/17 at 20:59; Status DC Lorazepam (Ativan) 0.75 mg BID PO Last administered on 09/08/17at 07:37; Start 09/04/17 at 21:00; Stop 09/08/17 at 12:55; Status DC Lorazepam (Ativan) 0.5 mg DAILY@1400 PO Last administered on 09/07/17at 14:24; Start 09/04/17 at 14:00; Stop 09/07/17 at 18:46; Status DC Donepezil HCl (Aricept) 10 mg DAILY PO Last administered on 09/16/17at 07:57; Start 08/31/17 at 09:00 Fluvoxamine Maleate (Luvox) 25 mg DAILY PO Last administered on 09/05/17at 08:00 ; Start 09/04/17 at 09:00; Stop 09/06/17 at 08:59; Status DC Fluvoxamine Maleate (Luvox) 50 mg DAILY PO ; Start 09/04/17 at 09:00; Stop 09/04 at 09:00; Status DC Fluvoxamine Maleate (Luvox) 50 mg DAILY PO Last administered on 09/16/17at 07:59 ; Start 09/06/17 at 09:00 Quetiapine Fumarate (SEROquel) 12.5 mg BID@0900,1300 PO Last administered on at 12:43; Start 09/05/17 at 09:00; Stop 09/08/17 at 18:51; Status DC Mirtazapine (Remeron) 7.5 mg QHS PO Last administered on 09/16/17at 20:00; Start 09/06/17 at 21:00 Lorazepam (Ativan) 0.25 mg DAILY@1400 PO Last administered on 09/10/17at 13:26; Start 09/08/17 at 14:00; Stop 09/10/17 at 21:00; Status DC Lidocaine (Lidoderm) 1 patch DAILY TD Last administered on 09/16/17at 08:00; Start 09/08/17 at 09:00 Lorazepam (Ativan) 0.5 mg PRN DAILY PRN PO ANXIETY / AGITATION; Start 09/16/17 at 19:45; Stop 09/16/17 at 19:45; Status DC Lorazepam (Ativan) 0.75 mg PRN QHS PRN PO ANXIETY / AGITATION; Start 09/16/17 at 21:00; Stop 09/16/17 at 21:00; Status DC Lorazepam (Ativan) 0.5 mg Taper DAILY PO Last administered on 09/16/17at 07:59; Start 09/09/17 at 09:00; Stop 09/26/17 at 08:59 Lorazepam (Ativan) 0.75 mg Taper QHS PO Last administered on 09/16/17at 20:02; Start 09/08/17 at 21:00; Stop 09/29/17 at 20:59 Quetiapine Fumarate (SEROquel) 12.5 mg TID@0900,1300,1700 PO Last administered on 09/13/17at 16:19; Start 09/09/17 at 09:00; Stop 09/13/17 at 18:46; Status DC Quetiapine Fumarate (SEROquel) 12.5 mg QID PO Last administered on 09/15/17at 17 :16; Start 09/13/17 at 21:00; Stop 09/15/17 at 18:27; Status DC Quetiapine Fumarate (SEROquel) 12.5 mg BID@1300,2100 PO Last administered on at 13:23; Start 09/15/17 at 21:00; Stop 09/16/17 at 18:49; Status DC Quetiapine Fumarate (SEROquel) 25 mg BID@0900,1700 PO Last administered on 09/16at 16:19; Start 09/16/17 at 09:00; Stop 09/16/17 at 19:47; Status DC Quetiapine Fumarate (SEROquel) 12.5 mg DAILY@1300 PO ; Start 09/17/17 at 13:00 Quetiapine Fumarate (SEROquel) 25 mg QHS PO ; Start 09/16/17 at 21:00; Stop at 21:00; Status DC Quetiapine Fumarate (SEROquel) 25 mg TID@0900,1700,2100 PO Last administered on 09/16/17at 20:00; Start 09/16/17 at 21:00 Active Scripts Active Reported Zofran (Ondansetron Hcl) 4 Mg Tablet 4 Mg PO PRN Q6HRS PRN Vitamin C (Ascorbic Acid) 500 Mg Tablet 500 Mg PO BID Calcium Carbonate 500 Mg Tablet 500 Mg PO PRN Q4HRS PRN Pantoprazole Sodium 40 Mg Tablet.dr 40 Mg PO DAILY Milk Of Magnesia (Magnesium Hydroxide) 400 Mg/5 Ml Oral.susp 30 Ml PO PRN DAILY PRN Escitalopram Oxalate 20 Mg Tablet 20 Mg PO DAILY Ferrous Gluconate 324 Mg Tablet 324 Mg PO BID Donepezil Hcl 5 Mg Tablet 5 Mg PO DAILY Bisacodyl 5 Mg Tablet.dr 10 Mg PO PRN DAILY PRN Ativan (Lorazepam) 1 Mg Tablet 1 Mg PO QID Acetaminophen 500 Mg Tablet 500 Mg PO PRN Q4HRS PRN I have reviewed the current psychotropics carefully including drug interactions. Risk benefit ratio favors no change other than as noted in my dictated progress note. Diagnosis: Problems: (1) Major neurocognitive disorder, due to vascular disease, with behavioral disturbance, mild (2) Alzheimer's dementia (3) Behavior problem (4) Delusion REX ANGELES MD Sep 16, 2017 21:49
[2017-09-17 05:55] VITALS: BP 153/86
--- NOTE | 2017-09-17 07:40 | PN ---
DATE: 09/15/2017 This late entry 09/15/2017 covers elements not covered in my initial note 09/15/2017. SUBJECTIVE: I met with the patient in the evening of 09/15/2017. The patient slept 7-1/2 hours previous evening, walked out of her room with no underwear, was agitated, aggressive, psychotic, was punching at staff, cursing, hallucinating, pointing to the chair as if someone was sitting in it, telling someone she would kill someone. Quite labile. REVIEW OF SYSTEMS: No CV, , pulmonary, eye, ENT system symptoms on review. Reliability poor. MENTAL STATUS EXAM: Oriented to herself. Insight, judgment, recent and remote memory, attention, concentration, fund of knowledge poor, consistent with her diagnosis mentioned in my initial note. IMPRESSION: Major neurocognitive disorder, Alzheimer, vascular with depression, delusion, behavioral disturbance. Rest unchanged. PLAN: Increase 0900 hours and 1700 hours Seroquel to 25 mg. Continue rest of the psychotropics unchanged. MAN Ifeanyi ANGELES MD DR: ADA/norah JOB#: [id number] / [id number]
--- NOTE | 2017-09-17 07:52 | PN ---
DATE: 09/16/2017 This late entry 09/16/2017 covers elements not covered in my initial note 09/16/2017. Met with the patient the evening of 09/16/2017. The patient slept 6-1/2 hours previous evening. Previous night, she was having visual hallucinations, gets overly stimulated with noises and there was another demented patient who was agitated worsening her mood lability. REVIEW OF SYSTEMS: No CV, , pulmonary, eye, ENT system symptoms on review. Reliability poor. MENTAL STATUS EXAM: Oriented to herself. Insight, judgment, recent and remote memory, attention, concentration, fund of knowledge poor, consistent with her diagnosis mentioned in my initial note. IMPRESSION: Major neurocognitive disorder, Alzheimer, vascular with depression, delusion, behavioral disturbance. Rest unchanged. PLAN: Increase the bedtime Seroquel to 25 mg. Continue rest unchanged. MAN Ifeanyi ANGELES MD DR: ADA/norah JOB#: [id number] / [id number]
[2017-09-17] MEDS: FERROUS GLUCONATE 324 MG TABLET PO SCH ×2 (08:53→16:31)
[2017-09-17] MEDS: LORazepam 0.5 MG TABLET PO SCH ×2 (08:53→20:00)
[2017-09-17] MEDS: DONEPEZIL HCL 10 MG TABLET PO SCH (08:53)
[2017-09-17] MEDS: PANTOPRAZOLE 40 MG TABLET. PO SCH (08:53)
[2017-09-17] MEDS: ASCORBIC ACID 500 MG TABLET PO SCH ×2 (08:54→19:58)
[2017-09-17] MEDS: QUEtiapine 25 MG TABLET. PO SCH ×4 (08:54→19:58)
[2017-09-17] MEDS: LIDOCAINE (700MG/PATCH) PATCH. TD SCH (08:54)
[2017-09-17 16:18] VITALS: BP 120/83
--- NOTE | 2017-09-17 19:11 | PDOC ---
Exam Note: Jarrod Note: Please also refer to the separate dictated note~for this date of service dictated separately.~Patient seen individually. Discussed the patient with Nursing staff reviewed the chart.~Reviewed interim history and current functioning. Reviewed vital signs,~Labs/ Radiology~and current medications noted below. Continue current treatment with the changes noted in the dictated addendum note Assessment: Vital Signs: Vital Signs Date Time Temp Pulse Resp B/P (MAP) Pulse Ox O2 Delivery O2 Flow Rate FiO2 09/17/17 16:18 98.0 75 18 120/83 (95) 94 09/14/17 16:18 Room Air I&O Intake and Output 09/17/17 07:00 Intake Total 720 ml Balance 720 ml Intake Oral 720 ml Current Medications: Meds: Current Medications Acetaminophen (Tylenol) 650 mg PRN Q6HRS PRN PO PAIN / TEMP Last administered on 09/13/17at 13:50; Start 08/26/17 at 19:30 Multi-Ingredient Ointment (Analgesic [place]) 1 serg PRN QID PRN TP MUSCLE PAIN; Start 08/26/17 at 19:30 Al Hydroxide/Mg Hydroxide (Mylanta Plus Xs) 15 ml PRN AFTMEALHC PRN PO DYSPEPSIA; Start 08/26/17 at 19:30 Magnesium Hydroxide (Milk Of Magnesia) 2,400 mg PRN QHS PRN PO CONSTIPATION; Start 08/26/17 at 19:30 Donepezil HCl (Aricept) 5 mg DAILY PO Last administered on 08/30/17at 09:14; Start 08/27/17 at 09:00; Stop 08/30/17 at 18:58; Status DC Lorazepam (Ativan) 1 mg QID PO Last administered on 08/28/17at 17:07; Start at 21:00; Stop 08/28/17 at 17:55; Status DC Citalopram Hydrobromide (CeleXA) 40 mg DAILY PO Last administered on 08/28/17at 09:38; Start 08/27/17 at 09:00; Stop 08/28/17 at 17:41; Status DC Ascorbic Acid (Vitamin C) 500 mg BID PO Last administered on 09/17/17at 08:54; Start 08/26/17 at 21:00 Bisacodyl (Dulcolax Tab) 10 mg PRN DAILY PRN PO CONSTIPATION; Start 08/26/17 at 19:45 Calcium Carbonate/ Glycine (Oscal) 500 mg PRN Q4HRS PRN PO DYSPEPSIA; Start 08/26/17 at 19:45 Ferrous Gluconate (Fergon) 324 mg BIDWMEALS PO Last administered on 09/17/17 16:31; Start 08/27/17 at 08:00 Pantoprazole Sodium (Protonix) 40 mg DAILYAC PO Last administered on 09/17/17 08:53; Start 08/27/17 at 07:30 Olanzapine (ZyPREXA ZYDIS) 2.5 mg PRN Q2HR PRN PO ANXIETY / AGITATION Last administered on 09/15/17 20:59; Start 08/26/17 at 20:30 Vitamin D (Vitamin D3) 50,000 unit WEEKLY PO Last administered on 09/11/17at 08: 44; Start 08/28/17 at 14:00 Cyanocobalamin (Vitamin B-12) 1,000 mcg DAILY IM Last administered on 09/01/17at 08:38; Start 08/28/17 at 14:00; Stop 09/01/17 at 13:59; Status DC Cyanocobalamin (Vitamin B-12) 1,000 mcg [id number] IM ; Start 09/25/17 at 09:00 Influenza Virus Vaccine Quadrival (Fluarix Quad [id number] Syringe) 0.5 ml ONCE ONCE VAX IM Last administered on 08/29/17 10:07; Start 08/29/17 at 09:00; Stop 08/29/17 at 09:01; Status DC Pneumococcal Polyvalent Vaccine (Pneumovax 23) 0.5 ml ONCE ONCE VAX IM Last administered on 08/29/17 10:08; Start 08/29/17 at 09:00; Stop 08/29/17 at 09:01; Status DC Sertraline HCl (Zoloft) 50 mg DAILY PO Last administered on 09/03/17at 07:51; Start 08/29/17 at 09:00; Stop 09/03/17 at 21:48; Status DC Lorazepam (Ativan) 1 mg TID PO Last administered on 08/31/17 13:53; Start at 21:00; Stop 08/31/17 at 20:59; Status DC Lorazepam (Ativan) 0.75 mg TID PO Last administered on 09/04/17at 09:20; Start 09/01/17 at 21:00; Stop 09/04/17 at 20:59; Status DC Lorazepam (Ativan) 0.75 mg BID PO Last administered on 09/08/17at 07:37; Start 09/04/17 at 21:00; Stop 09/08/17 at 12:55; Status DC Lorazepam (Ativan) 0.5 mg DAILY@1400 PO Last administered on 09/07/17at 14:24; Start 09/04/17 at 14:00; Stop 09/07/17 at 18:46; Status DC Donepezil HCl (Aricept) 10 mg DAILY PO Last administered on 09/17/17at 08:53; Start 08/31/17 at 09:00 Fluvoxamine Maleate (Luvox) 25 mg DAILY PO Last administered on 09/05/17at 08:00 ; Start 09/04/17 at 09:00; Stop 09/06/17 at 08:59; Status DC Fluvoxamine Maleate (Luvox) 50 mg DAILY PO ; Start 09/04/17 at 09:00; Stop 09/04 at 09:00; Status DC Fluvoxamine Maleate (Luvox) 50 mg DAILY PO Last administered on 09/17/17at 08:53 ; Start 09/06/17 at 09:00 Quetiapine Fumarate (SEROquel) 12.5 mg BID@0900,1300 PO Last administered on at 12:43; Start 09/05/17 at 09:00; Stop 09/08/17 at 18:51; Status DC Mirtazapine (Remeron) 7.5 mg QHS PO Last administered on 09/16/17at 20:00; Start 09/06/17 at 21:00 Lorazepam (Ativan) 0.25 mg DAILY@1400 PO Last administered on 09/10/17at 13:26; Start 09/08/17 at 14:00; Stop 09/10/17 at 21:00; Status DC Lidocaine (Lidoderm) 1 patch DAILY TD Last administered on 09/17/17at 08:54; Start 09/08/17 at 09:00 Lorazepam (Ativan) 0.5 mg PRN DAILY PRN PO ANXIETY / AGITATION; Start 09/16/17 at 19:45; Stop 09/16/17 at 19:45; Status DC Lorazepam (Ativan) 0.75 mg PRN QHS PRN PO ANXIETY / AGITATION; Start 09/16/17 at 21:00; Stop 09/16/17 at 21:00; Status DC Lorazepam (Ativan) 0.5 mg Taper DAILY PO Last administered on 09/17/17at 08:53; Start 09/09/17 at 09:00; Stop 09/26/17 at 08:59 Lorazepam (Ativan) 0.75 mg Taper QHS PO Last administered on 09/16/17at 20:02; Start 09/08/17 at 21:00; Stop 09/29/17 at 20:59 Quetiapine Fumarate (SEROquel) 12.5 mg TID@0900,1300,1700 PO Last administered on 09/13/17at 16:19; Start 09/09/17 at 09:00; Stop 09/13/17 at 18:46; Status DC Quetiapine Fumarate (SEROquel) 12.5 mg QID PO Last administered on 09/15/17at 17 :16; Start 09/13/17 at 21:00; Stop 09/15/17 at 18:27; Status DC Quetiapine Fumarate (SEROquel) 12.5 mg BID@1300,2100 PO Last administered on at 13:23; Start 09/15/17 at 21:00; Stop 09/16/17 at 18:49; Status DC Quetiapine Fumarate (SEROquel) 25 mg BID@0900,1700 PO Last administered on 09/16at 16:19; Start 09/16/17 at 09:00; Stop 09/16/17 at 19:47; Status DC Quetiapine Fumarate (SEROquel) 12.5 mg DAILY@1300 PO Last administered on at 13:22; Start 09/17/17 at 13:00 Quetiapine Fumarate (SEROquel) 25 mg QHS PO ; Start 09/16/17 at 21:00; Stop at 21:00; Status DC Quetiapine Fumarate (SEROquel) 25 mg TID@0900,1700,2100 PO Last administered on 09/17/17at 16:31; Start 09/16/17 at 21:00 Active Scripts Active Reported Zofran (Ondansetron Hcl) 4 Mg Tablet 4 Mg PO PRN Q6HRS PRN Vitamin C (Ascorbic Acid) 500 Mg Tablet 500 Mg PO BID Calcium Carbonate 500 Mg Tablet 500 Mg PO PRN Q4HRS PRN Pantoprazole Sodium 40 Mg Tablet.dr 40 Mg PO DAILY Milk Of Magnesia (Magnesium Hydroxide) 400 Mg/5 Ml Oral.susp 30 Ml PO PRN DAILY PRN Escitalopram Oxalate 20 Mg Tablet 20 Mg PO DAILY Ferrous Gluconate 324 Mg Tablet 324 Mg PO BID Donepezil Hcl 5 Mg Tablet 5 Mg PO DAILY Bisacodyl 5 Mg Tablet.dr 10 Mg PO PRN DAILY PRN Ativan (Lorazepam) 1 Mg Tablet 1 Mg PO QID Acetaminophen 500 Mg Tablet 500 Mg PO PRN Q4HRS PRN I have reviewed the current psychotropics carefully including drug interactions. Risk benefit ratio favors no change other than as noted in my dictated progress note. Diagnosis: Problems: (1) Major neurocognitive disorder, due to vascular disease, with behavioral disturbance, mild (2) Alzheimer's dementia (3) Behavior problem (4) Delusion REX ANGELES MD Sep 17, 2017 19:11
[2017-09-17] MEDS: MIRTAZAPINE 7.5 MG TABLET. PO SCH (19:58)
[2017-09-18 05:58] VITALS: BP 129/77
[2017-09-18] MEDS: FERROUS GLUCONATE 324 MG TABLET PO SCH ×2 (07:46→17:08)
[2017-09-18] MEDS: LORazepam 0.5 MG TABLET PO SCH ×2 (07:46→19:29)
[2017-09-18] MEDS: PANTOPRAZOLE 40 MG TABLET. PO SCH (07:46)
[2017-09-18] MEDS: DONEPEZIL HCL 10 MG TABLET PO SCH (07:46)
[2017-09-18] MEDS: QUEtiapine 25 MG TABLET. PO SCH ×4 (07:47→19:29)
[2017-09-18] MEDS: LIDOCAINE (700MG/PATCH) PATCH. TD SCH (07:47)
[2017-09-18] MEDS: ASCORBIC ACID 500 MG TABLET PO SCH ×2 (07:47→19:29)
[2017-09-18] MEDS: CHOLECALCIFEROL (VITAMIN D3) 50,000 UNIT CAPSULE PO SCH (07:48)
[2017-09-18 15:43] VITALS: BP 104/69
--- NOTE | 2017-09-18 18:42 | PDOC ---
Exam Note: Jarrod Note: Please also refer to the separate dictated note~for this date of service dictated separately.~Patient seen individually. Discussed the patient with Nursing staff reviewed the chart.~Reviewed interim history and current functioning. Reviewed vital signs,~Labs/ Radiology~and current medications noted below. Continue current treatment with the changes noted in the dictated addendum note Assessment: Vital Signs: Vital Signs Date Time Temp Pulse Resp B/P (MAP) Pulse Ox O2 Delivery O2 Flow Rate FiO2 09/18/17 15:43 97.9 77 16 104/69 (81) 93 09/14/17 16:18 Room Air I&O Intake and Output 09/18/17 07:00 Intake Total 1200 ml Balance 1200 ml Intake Oral 1200 ml # Voids 1 Current Medications: Meds: Current Medications Acetaminophen (Tylenol) 650 mg PRN Q6HRS PRN PO PAIN / TEMP Last administered on 09/13/17at 13:50; Start 08/26/17 at 19:30 Multi-Ingredient Ointment (Analgesic [place]) 1 serg PRN QID PRN TP MUSCLE PAIN; Start 08/26/17 at 19:30 Al Hydroxide/Mg Hydroxide (Mylanta Plus Xs) 15 ml PRN AFTMEALHC PRN PO DYSPEPSIA; Start 08/26/17 at 19:30 Magnesium Hydroxide (Milk Of Magnesia) 2,400 mg PRN QHS PRN PO CONSTIPATION; Start 08/26/17 at 19:30 Donepezil HCl (Aricept) 5 mg DAILY PO Last administered on 08/30/17at 09:14; Start 08/27/17 at 09:00; Stop 08/30/17 at 18:58; Status DC Lorazepam (Ativan) 1 mg QID PO Last administered on 08/28/17 17:07; Start at 21:00; Stop 08/28/17 at 17:55; Status DC Citalopram Hydrobromide (CeleXA) 40 mg DAILY PO Last administered on 08/28/17 09:38; Start 08/27/17 at 09:00; Stop 08/28/17 at 17:41; Status DC Ascorbic Acid (Vitamin C) 500 mg BID PO Last administered on 09/18/17at 07:47; Start 08/26/17 at 21:00 Bisacodyl (Dulcolax Tab) 10 mg PRN DAILY PRN PO CONSTIPATION; Start 08/26/17 at 19:45 Calcium Carbonate/ Glycine (Oscal) 500 mg PRN Q4HRS PRN PO DYSPEPSIA; Start 08/26/17 at 19:45 Ferrous Gluconate (Fergon) 324 mg BIDWMEALS PO Last administered on 09/18/17 17:08; Start 08/27/17 at 08:00 Pantoprazole Sodium (Protonix) 40 mg DAILYAC PO Last administered on 09/18/17 07:46; Start 08/27/17 at 07:30 Olanzapine (ZyPREXA ZYDIS) 2.5 mg PRN Q2HR PRN PO ANXIETY / AGITATION Last administered on 09/15/17 20:59; Start 08/26/17 at 20:30 Vitamin D (Vitamin D3) 50,000 unit WEEKLY PO Last administered on 09/18/17 07: 48; Start 08/28/17 at 14:00 Cyanocobalamin (Vitamin B-12) 1,000 mcg DAILY IM Last administered on 09/01/17at 08:38; Start 08/28/17 at 14:00; Stop 09/01/17 at 13:59; Status DC Cyanocobalamin (Vitamin B-12) 1,000 mcg [id number] IM ; Start 09/25/17 at 09:00 Influenza Virus Vaccine Quadrival (Fluarix Quad [id number] Syringe) 0.5 ml ONCE ONCE VAX IM Last administered on 08/29/17at 10:07; Start 08/29/17 at 09:00; Stop 08/29/17 at 09:01; Status DC Pneumococcal Polyvalent Vaccine (Pneumovax 23) 0.5 ml ONCE ONCE VAX IM Last administered on 08/29/17at 10:08; Start 08/29/17 at 09:00; Stop 08/29/17 at 09:01; Status DC Sertraline HCl (Zoloft) 50 mg DAILY PO Last administered on 09/03/17at 07:51; Start 08/29/17 at 09:00; Stop 09/03/17 at 21:48; Status DC Lorazepam (Ativan) 1 mg TID PO Last administered on 08/31/17at 13:53; Start at 21:00; Stop 08/31/17 at 20:59; Status DC Lorazepam (Ativan) 0.75 mg TID PO Last administered on 09/04/17at 09:20; Start 09/01/17 at 21:00; Stop 09/04/17 at 20:59; Status DC Lorazepam (Ativan) 0.75 mg BID PO Last administered on 09/08/17at 07:37; Start 09/04/17 at 21:00; Stop 09/08/17 at 12:55; Status DC Lorazepam (Ativan) 0.5 mg DAILY@1400 PO Last administered on 09/07/17at 14:24; Start 09/04/17 at 14:00; Stop 09/07/17 at 18:46; Status DC Donepezil HCl (Aricept) 10 mg DAILY PO Last administered on 09/18/17at 07:46; Start 08/31/17 at 09:00 Fluvoxamine Maleate (Luvox) 25 mg DAILY PO Last administered on 09/05/17at 08:00 ; Start 09/04/17 at 09:00; Stop 09/06/17 at 08:59; Status DC Fluvoxamine Maleate (Luvox) 50 mg DAILY PO ; Start 09/04/17 at 09:00; Stop 09/04 at 09:00; Status DC Fluvoxamine Maleate (Luvox) 50 mg DAILY PO Last administered on 09/18/17at 07:47 ; Start 09/06/17 at 09:00 Quetiapine Fumarate (SEROquel) 12.5 mg BID@0900,1300 PO Last administered on at 12:43; Start 09/05/17 at 09:00; Stop 09/08/17 at 18:51; Status DC Mirtazapine (Remeron) 7.5 mg QHS PO Last administered on 09/17/17at 19:58; Start 09/06/17 at 21:00 Lorazepam (Ativan) 0.25 mg DAILY@1400 PO Last administered on 09/10/17at 13:26; Start 09/08/17 at 14:00; Stop 09/10/17 at 21:00; Status DC Lidocaine (Lidoderm) 1 patch DAILY TD Last administered on 09/18/17at 07:47; Start 09/08/17 at 09:00 Lorazepam (Ativan) 0.5 mg PRN DAILY PRN PO ANXIETY / AGITATION; Start 09/16/17 at 19:45; Stop 09/16/17 at 19:45; Status DC Lorazepam (Ativan) 0.75 mg PRN QHS PRN PO ANXIETY / AGITATION; Start 09/16/17 at 21:00; Stop 09/16/17 at 21:00; Status DC Lorazepam (Ativan) 0.5 mg Taper DAILY PO Last administered on 09/18/17at 07:46; Start 09/09/17 at 09:00; Stop 09/26/17 at 08:59 Lorazepam (Ativan) 0.5 mg Taper QHS PO Last administered on 09/17/17at 20:00; Start 09/08/17 at 21:00; Stop 09/29/17 at 20:59 Quetiapine Fumarate (SEROquel) 12.5 mg TID@0900,1300,1700 PO Last administered on 09/13/17at 16:19; Start 09/09/17 at 09:00; Stop 09/13/17 at 18:46; Status DC Quetiapine Fumarate (SEROquel) 12.5 mg QID PO Last administered on 09/15/17at 17 :16; Start 09/13/17 at 21:00; Stop 09/15/17 at 18:27; Status DC Quetiapine Fumarate (SEROquel) 12.5 mg BID@1300,2100 PO Last administered on at 13:23; Start 09/15/17 at 21:00; Stop 09/16/17 at 18:49; Status DC Quetiapine Fumarate (SEROquel) 25 mg BID@0900,1700 PO Last administered on 09/16at 16:19; Start 09/16/17 at 09:00; Stop 09/16/17 at 19:47; Status DC Quetiapine Fumarate (SEROquel) 12.5 mg DAILY@1300 PO Last administered on at 13:17; Start 09/17/17 at 13:00 Quetiapine Fumarate (SEROquel) 25 mg QHS PO ; Start 09/16/17 at 21:00; Stop 2/ 24/18 at 21:00; Status DC Quetiapine Fumarate (SEROquel) 25 mg TID@0900,1700,2100 PO Last administered on 09/18/17at 17:08; Start 09/16/17 at 21:00 Active Scripts Active Reported Zofran (Ondansetron Hcl) 4 Mg Tablet 4 Mg PO PRN Q6HRS PRN Vitamin C (Ascorbic Acid) 500 Mg Tablet 500 Mg PO BID Calcium Carbonate 500 Mg Tablet 500 Mg PO PRN Q4HRS PRN Pantoprazole Sodium 40 Mg Tablet.dr 40 Mg PO DAILY Milk Of Magnesia (Magnesium Hydroxide) 400 Mg/5 Ml Oral.susp 30 Ml PO PRN DAILY PRN Escitalopram Oxalate 20 Mg Tablet 20 Mg PO DAILY Ferrous Gluconate 324 Mg Tablet 324 Mg PO BID Donepezil Hcl 5 Mg Tablet 5 Mg PO DAILY Bisacodyl 5 Mg Tablet.dr 10 Mg PO PRN DAILY PRN Ativan (Lorazepam) 1 Mg Tablet 1 Mg PO QID Acetaminophen 500 Mg Tablet 500 Mg PO PRN Q4HRS PRN I have reviewed the current psychotropics carefully including drug interactions. Risk benefit ratio favors no change other than as noted in my dictated progress note. Diagnosis: Problems: (1) Major neurocognitive disorder, due to vascular disease, with behavioral disturbance, mild (2) Alzheimer's dementia (3) Behavior problem (4) Delusion REX ANGELES MD Sep 18, 2017 18:42
[2017-09-18] MEDS: MIRTAZAPINE 7.5 MG TABLET. PO SCH (19:29)
[2017-09-19] MEDS ORDERED: ACET325T9 PO (01:36)
[2017-09-19] MEDS ORDERED: CHOL500050 PO (01:39)
[2017-09-19] MEDS ORDERED: CYAN10002 IJ (01:40)
[2017-09-19] MEDS ORDERED: DONE10TA7 PO (01:41)
[2017-09-19] MEDS ORDERED: LIDO700A39 TP (01:43)
[2017-09-19] MEDS ORDERED: LORA0.5T PO ×3 (01:45→10:34)
[2017-09-19] MEDS ORDERED: MAGN2400 PO (01:51)
[2017-09-19] MEDS ORDERED: MAG30ORA2 PO (01:52)
[2017-09-19] MEDS ORDERED: METH29OI TP (01:53)
[2017-09-19] MEDS ORDERED: OLAN5TAB5 PO (01:55)
[2017-09-19] MEDS ORDERED: MIRT15TA3 PO (01:56)
[2017-09-19] MEDS ORDERED: QUET25TA5 PO ×2 (01:58→01:59)
[2017-09-19] MEDS ORDERED: FLUV50TA2 PO (02:01)
[2017-09-19 06:09] VITALS: BP 158/88
[2017-09-19] MEDS: LIDOCAINE (700MG/PATCH) PATCH. TD SCH (07:44)
[2017-09-19] MEDS: DONEPEZIL HCL 10 MG TABLET PO SCH (07:45)
[2017-09-19] MEDS: PANTOPRAZOLE 40 MG TABLET. PO SCH (07:45)
[2017-09-19] MEDS: ASCORBIC ACID 500 MG TABLET PO SCH (07:45)
[2017-09-19] MEDS: QUEtiapine 25 MG TABLET. PO SCH (07:45)
[2017-09-19] MEDS: FERROUS GLUCONATE 324 MG TABLET PO SCH (07:46)
[2017-09-19] MEDS: LORazepam 0.5 MG TABLET PO SCH (07:46)
--- NOTE | 2017-09-19 09:08 | PN ---
DATE: 09/17/2017 PSYCHIATRIC PROGRESS NOTE This is a late entry 09/17/2017, covers elements not covered in my initial note of 09/17/2017. SUBJECTIVE: I met with the patient the evening of 09/17/2017. The patient did reasonably well the previous evening. No hallucinations or delusions noted. She walks around the unit, pacing with furrowed brow somewhat intense, but no overt threats made to others. REVIEW OF SYSTEMS: No CV, , pulmonary, eye, ENT system symptoms on review. Reliability poor. MENTAL STATUS EXAM: Oriented to herself. Otherwise pleasant, verbal. Insight, judgment, recent and remote memory, attention, concentration, fund of knowledge poor, consistent with her diagnoses mentioned in my initial note. IMPRESSION: Major neurocognitive disorder, Alzheimer, vascular with depression, delusion, behavioral disturbance. PLAN: Continue psychotropics mentioned in my initial note. MAN Ifeanyi ANGELES MD DR: ADA/norah JOB#: [id number] / [id number]
--- NOTE | 2017-09-19 20:24 | PDOC ---
Exam Note: Jarrod Note: Please also refer to the separate dictated note~for this date of service dictated separately.~Patient seen individually. Discussed the patient with Nursing staff reviewed the chart.~Reviewed interim history and current functioning. Reviewed vital signs,~Labs/ Radiology~and current medications noted below. Continue current treatment with the changes noted in the dictated addendum note Assessment: Vital Signs: Vital Signs Date Time Temp Pulse Resp B/P (MAP) Pulse Ox O2 Delivery O2 Flow Rate FiO2 09/19/17 06:09 97.4 70 16 158/88 (111) 93 09/14/17 16:18 Room Air I&O Intake and Output 09/19/17 07:00 Intake Total 1200 ml Balance 1200 ml Intake Oral 1200 ml # Voids 2 # Bowel Movements 1 Current Medications: Meds: Current Medications Acetaminophen (Tylenol) 650 mg PRN Q6HRS PRN PO PAIN / TEMP Last administered on 09/13/17at 13:50; Start 08/26/17 at 19:30; Stop 09/19/17 at 11:49; Status DC Multi-Ingredient Ointment (Analgesic [place]) 1 [place] PRN QID PRN TP MUSCLE PAIN; Start 08/26/17 at 19:30; Stop 09/19/17 at 11:49; Status DC Al Hydroxide/Mg Hydroxide (Mylanta Plus Xs) 15 ml PRN AFTMEALHC PRN PO DYSPEPSIA; Start 08/26/17 at 19:30; Stop 09/19/17 at 11:49; Status DC Magnesium Hydroxide (Milk Of Magnesia) 2,400 mg PRN QHS PRN PO CONSTIPATION; Start 08/26/17 at 19:30; Stop 09/19/17 at 11:49; Status DC Donepezil HCl (Aricept) 5 mg DAILY PO Last administered on 08/30/17at 09:14; Start 08/27/17 at 09:00; Stop 08/30/17 at 18:58; Status DC Lorazepam (Ativan) 1 mg QID PO Last administered on 08/28/17at 17:07; Start at 21:00; Stop 08/28/17 at 17:55; Status DC Citalopram Hydrobromide (CeleXA) 40 mg DAILY PO Last administered on 08/28/17at 09:38; Start 08/27/17 at 09:00; Stop 08/28/17 at 17:41; Status DC Ascorbic Acid (Vitamin C) 500 mg BID PO Last administered on 09/19/17at 07:45; Start 08/26/17 at 21:00; Stop 09/19/17 at 11:49; Status DC Bisacodyl (Dulcolax Tab) 10 mg PRN DAILY PRN PO CONSTIPATION; Start 08/26/17 at 19:45; Stop 09/19/17 at 11:49; Status DC Calcium Carbonate/ Glycine (Oscal) 500 mg PRN Q4HRS PRN PO DYSPEPSIA; Start 08/26/17 at 19:45; Stop 09/19/17 at 11:49; Status DC Ferrous Gluconate (Fergon) 324 mg BIDWMEALS PO Last administered on 09/19/17at 07:46; Start 08/27/17 at 08:00; Stop 09/19/17 at 11:49; Status DC Pantoprazole Sodium (Protonix) 40 mg DAILYAC PO Last administered on 09/19/17at 07:45; Start 08/27/17 at 07:30; Stop 09/19/17 at 11:49; Status DC Olanzapine (ZyPREXA ZYDIS) 2.5 mg PRN Q2HR PRN PO ANXIETY / AGITATION Last administered on 09/15/17at 20:59; Start 08/26/17 at 20:30; Stop 09/19/17 at 11:49 ; Status DC Vitamin D (Vitamin D3) 50,000 unit WEEKLY PO Last administered on 09/18/17at 07: 48; Start 08/28/17 at 14:00; Stop 09/19/17 at 11:49; Status DC Cyanocobalamin (Vitamin B-12) 1,000 mcg DAILY IM Last administered on 09/01/17at 08:38; Start 08/28/17 at 14:00; Stop 09/01/17 at 13:59; Status DC Cyanocobalamin (Vitamin B-12) 1,000 mcg [id number] IM ; Start 09/25/17 at 09:00; Stop 09/25/17 at 09:00; Status DC Influenza Virus Vaccine Quadrival (Fluarix Quad [id number] Syringe) 0.5 ml ONCE ONCE VAX IM Last administered on 08/29/17at 10:07; Start 08/29/17 at 09:00; Stop 08/29/17 at 09:01; Status DC Pneumococcal Polyvalent Vaccine (Pneumovax 23) 0.5 ml ONCE ONCE VAX IM Last administered on 08/29/17at 10:08; Start 08/29/17 at 09:00; Stop 08/29/17 at 09:01; Status DC Sertraline HCl (Zoloft) 50 mg DAILY PO Last administered on 09/03/17at 07:51; Start 08/29/17 at 09:00; Stop 09/03/17 at 21:48; Status DC Lorazepam (Ativan) 1 mg TID PO Last administered on 08/31/17at 13:53; Start at 21:00; Stop 08/31/17 at 20:59; Status DC Lorazepam (Ativan) 0.75 mg TID PO Last administered on 09/04/17at 09:20; Start 09/01/17 at 21:00; Stop 09/04/17 at 20:59; Status DC Lorazepam (Ativan) 0.75 mg BID PO Last administered on 09/08/17at 07:37; Start 09/04/17 at 21:00; Stop 09/08/17 at 12:55; Status DC Lorazepam (Ativan) 0.5 mg DAILY@1400 PO Last administered on 09/07/17at 14:24; Start 09/04/17 at 14:00; Stop 09/07/17 at 18:46; Status DC Donepezil HCl (Aricept) 10 mg DAILY PO Last administered on 09/19/17at 07:45; Start 08/31/17 at 09:00; Stop 09/19/17 at 11:49; Status DC Fluvoxamine Maleate (Luvox) 25 mg DAILY PO Last administered on 09/05/17at 08:00 ; Start 09/04/17 at 09:00; Stop 09/06/17 at 08:59; Status DC Fluvoxamine Maleate (Luvox) 50 mg DAILY PO ; Start 09/04/17 at 09:00; Stop 09/04 at 09:00; Status DC Fluvoxamine Maleate (Luvox) 50 mg DAILY PO Last administered on 09/19/17at 07:45 ; Start 09/06/17 at 09:00; Stop 09/19/17 at 11:49; Status DC Quetiapine Fumarate (SEROquel) 12.5 mg BID@0900,1300 PO Last administered on at 12:43; Start 09/05/17 at 09:00; Stop 09/08/17 at 18:51; Status DC Mirtazapine (Remeron) 7.5 mg QHS PO Last administered on 09/18/17at 19:29; Start 09/06/17 at 21:00; Stop 09/19/17 at 11:49; Status DC Lorazepam (Ativan) 0.25 mg DAILY@1400 PO Last administered on 09/10/17at 13:26; Start 09/08/17 at 14:00; Stop 09/10/17 at 21:00; Status DC Lidocaine (Lidoderm) 1 patch DAILY TD Last administered on 09/19/17at 07:44; Start 09/08/17 at 09:00; Stop 09/19/17 at 11:49; Status DC Lorazepam (Ativan) 0.5 mg PRN DAILY PRN PO ANXIETY / AGITATION; Start 09/16/17 at 19:45; Stop 09/16/17 at 19:45; Status DC Lorazepam (Ativan) 0.75 mg PRN QHS PRN PO ANXIETY / AGITATION; Start 09/16/17 at 21:00; Stop 09/16/17 at 21:00; Status DC Lorazepam (Ativan) 0.5 mg Taper DAILY PO Last administered on 09/19/17at 07:46; Start 09/09/17 at 09:00; Stop 09/19/17 at 11:49; Status DC Lorazepam (Ativan) 0.5 mg Taper QHS PO Last administered on 09/18/17at 19:29; Start 09/08/17 at 21:00; Stop 09/19/17 at 11:49; Status DC Quetiapine Fumarate (SEROquel) 12.5 mg TID@0900,1300,1700 PO Last administered on 09/13/17at 16:19; Start 09/09/17 at 09:00; Stop 09/13/17 at 18:46; Status DC Quetiapine Fumarate (SEROquel) 12.5 mg QID PO Last administered on 09/15/17at 17 :16; Start 09/13/17 at 21:00; Stop 09/15/17 at 18:27; Status DC Quetiapine Fumarate (SEROquel) 12.5 mg BID@1300,2100 PO Last administered on at 13:23; Start 09/15/17 at 21:00; Stop 09/16/17 at 18:49; Status DC Quetiapine Fumarate (SEROquel) 25 mg BID@0900,1700 PO Last administered on 09/16at 16:19; Start 09/16/17 at 09:00; Stop 09/16/17 at 19:47; Status DC Quetiapine Fumarate (SEROquel) 12.5 mg DAILY@1300 PO Last administered on at 13:17; Start 09/17/17 at 13:00; Stop 09/19/17 at 11:49; Status DC Quetiapine Fumarate (SEROquel) 25 mg QHS PO ; Start 09/16/17 at 21:00; Stop at 21:00; Status DC Quetiapine Fumarate (SEROquel) 25 mg TID@0900,1700,2100 PO Last administered on 09/19/17at 07:45; Start 09/16/17 at 21:00; Stop 09/19/17 at 11:49; Status DC Active Scripts Active Reported Lorazepam 0.5 Mg Tablet 0.25 Mg PO QHS last dose 09/28 2099 Fluvoxamine Maleate 50 Mg Tablet 50 Mg PO DAILY Seroquel (Quetiapine Fumarate) 25 Mg Tablet 25 Mg PO TID@0900,1700,2100 Seroquel (Quetiapine Fumarate) 25 Mg Tablet 12.5 Mg PO DAILY 1300 Mirtazapine 15 Mg Tablet 7.5 Mg PO QHS Zyprexa Zydis (Olanzapine) 5 Mg Tab.rapdis 2.5 Mg PO PRN Q24HRS PRN Analgesic [place] (Methyl Salicylate/Menthol) 28 Gm Oint...g. 1 [place] TP PRN QID PRN Mag-Al Plus Xs Suspension (Mag Hydrox/Al Hydrox/Simeth) 30 Ml Oral.susp 15 Ml PO PRN AFTMEALHC PRN Milk Of Magnesia (Magnesium Hydroxide) 2,400 Mg/10 Ml Oral.susp 2,400 Mg PO PRN QHS PRN Lorazepam 0.5 Mg Tablet 0.5 Mg PO HS last dose 09/22 2099 Lorazepam 0.5 Mg Tablet 0.25 Mg PO DAILY last dose 09/25 0900 Lidocaine 1 Each Adh..patch 1 Each TP DAILY Donepezil Hcl 10 Mg Tablet 10 Mg PO DAILY Cyanocobalamin Injection (Cyanocobalamin (Vitamin B-12)) 1,000 Mcg/1 Ml Vial 1, 000 Mcg IJ [id number] Vitamin D3 (Cholecalciferol (Vitamin D3)) 50,000 Unit Capsule 50,000 Unit PO WEEKLY Tylenol (Acetaminophen) 325 Mg Tablet 650 Mg PO PRN Q6HRS PRN Maximum Acetaminophen dose is 4000 mg in 24 hours from all sources for adults Vitamin C (Ascorbic Acid) 500 Mg Tablet 500 Mg PO BID Calcium Carbonate 500 Mg Tablet 500 Mg PO PRN Q4HRS PRN Pantoprazole Sodium 40 Mg Tablet. 40 Mg PO DAILYAC Ferrous Gluconate 324 Mg Tablet 324 Mg PO BID Bisacodyl 5 Mg Tablet.dr 10 Mg PO PRN DAILY PRN I have reviewed the current psychotropics carefully including drug interactions. Risk benefit ratio favors no change other than as noted in my dictated progress note. Diagnosis: Problems: (1) Major neurocognitive disorder, due to vascular disease, with behavioral disturbance, mild (2) Alzheimer's dementia (3) Behavior problem (4) Delusion REX ANGELES MD Sep 19, 2017 20:24
--- NOTE | 2017-09-19 22:34 | HP ---
ADMIT DATE: 09/18/2017 This note was initially dictated on 08/27/2017, but cannot be found in the electronic medical record system and I am re-dictating the note today. IDENTIFYING DATA: The patient is a 72-year-old female from [facility], referred by her primary care physician on an account of increased agitation, aggression, hitting staff, being disruptive, volatile, abrasive, and unmanageable. The patient's behaviors were deemed dangerous, unmanageable at the [facility]. Potential danger to herself and those around her. She had failed outpatient psychiatric interventions resulting in this referral. CHIEF COMPLAINT: "No." The patient is quite confused, ambulates at a 45-degree angle at forward bent at her waist, oriented just to herself. HISTORY OF PRESENT ILLNESS: The patient has a history of dementia, Alzheimer's vascular type. She has been residing at the [facility] for sometime, but in the recent past, she has been getting increasingly agitated, paranoid, delusional, aggressive, and disruptive. She has had sleep and appetite changes. No active suicidal or homicidal ideation. No clear history of bipolar disorder. PAST PSYCHIATRIC HISTORY: As above. MEDICAL HISTORY: Positive for scoliosis, chronic constipation. Accu-Cheks none. She is a full code at admission, but doctor wanted to change it to DNR. ALLERGIES: CONTRAST DYE and LATEX. MEDICATIONS: Takes her medications whole or crushed and hidden. DIET: Regular. UA negative at [facility] where she initially presented from the [facility] and then referred on to us. CURRENT PSYCHOTROPICS: Please refer to the MRAD, which I have reviewed. FAMILY HISTORY: Noncontributory. SOCIAL HISTORY: No history of alcohol, drug abuse, physical, sexual or elder abuse. Not known to be a perpetrator. MENTAL STATUS EXAMINATION: The patient was seen individually on 08/27/2017, for this evaluation. She is oriented to herself. Insight, judgment, recent and remote memory, attention, concentration, fund of knowledge poor, consistent with her diagnosis. The patient is quite paranoid, restless. LABORATORY DATA: Reviewed. IMPRESSION: Major neurocognitive disorder, Alzheimer, vascular with depression, delusion, behavioral disturbance; anxiety disorder, unspecified; impulse control disorder, unspecified. Rest as above. PLAN: Admit to geropsychiatry unit at [facility]. I will see the patient daily individually from a psychiatric standpoint, medical followup per Dr. Carr/Dr. Easton. We will observe the patient's baseline, then adjust her psychotropics for mood stability, delusions, and control of her agitation. MAN Ifeanyi ANGELES MD DR: ADA/norah JOB#: [id number] / [id number]
--- NOTE | 2017-09-20 09:01 | PN ---
DATE: 09/18/2017 This is a late entry for 09/18/2017 and covers elements not covered in my initial note of 09/18/2017. I met with the patient the evening of 09/18/2017. Overall, the patient remains confused, has not made aggressive verbal statements and has not been physically aggressive either. REVIEW OF SYSTEMS: No CV, , pulmonary, eye, ENT system symptoms on review. Reliability poor. MENTAL STATUS EXAM: Oriented to herself. Insight, judgment, recent and remote memory, attention, concentration, fund of knowledge poor, consistent with her diagnosis as mentioned in my initial note. The patient was smiling, as she met with me. Very appreciative of my visit, oblivious of her surroundings. IMPRESSION: Major neurocognitive disorder, Alzheimer, vascular with depression, delusion, behavioral disturbance. Rest unchanged. PLAN: Continue psychotropics as mentioned in my initial note. Transition to detention on 09/19/2017. REX ANGELES MD DR: ADA/norah JOB#: [id number] / [id number]
--- NOTE | 2017-09-20 22:12 | DS ---
DATE OF DISCHARGE: 09/19/2017 DISCHARGE SUMMARY/PSYCHIATRIC PROGRESS NOTE This late entry 09/19/2017 covers elements not covered in my initial note 09/19/2017. REASON FOR ADMISSION: Please refer to the admission history for details. Briefly, the patient is a 72-year-old female referred to us from [facility] by her primary care physician on account of worsening confusion, agitation, aggression. She was physically hitting staff, unmanageable, psychotic, had failed outpatient psychiatric interventions resulting in this referral. SIGNIFICANT FINDINGS AND CLINICAL COURSE: Following admission, the patient was seen daily individually by myself, followed medically per Dr. Carr/Dr. Easton. She was initially quite agitated, disruptive, labile. Adjustments were made in her psychotropics. She seemed to respond to a combination of Aricept 10 mg a day; Seroquel 12.5 mg at 1300, 25 mg at 0900, 1700, 2100; Remeron 7.5 mg at bedtime; Luvox 50 mg daily for her OCD symptoms; and Ativan 0.5 mg at 0900, 0.75 mg at 2100 which had been tapered. Plan is to taper and ultimately stop the Ativan back at the [facility]. CONDITION AT DISCHARGE: Improved. REVIEW OF SYSTEMS: Prior to discharge, 09/19/2017, ambulation somewhat impaired. She ambulates on her own, but has significant bending forward at her waist. No CV, , pulmonary, eye, ENT system symptoms on review. Reliability poor. MENTAL STATUS EXAM: Oriented to herself. Insight, judgment, recent and remote memory, attention, concentration, fund of knowledge poor, consistent with her diagnosis. IMPRESSION: Major neurocognitive disorder, Alzheimer, vascular with depression, delusion, behavioral disturbance, anxiety disorder, unspecified; impulse control disorder, unspecified. Rest unchanged from admission. DISCHARGE MEDICATIONS: Please refer to the EMRAD. DISCHARGE INSTRUCTIONS: Outpatient psychiatric and medical followup at the [facility]. Time for discharge day management greater than 30 minutes. REX ANGELES MD DR: ADA/norah JOB#: [id number] / [id number]
[2017-09-25] MEDS ORDERED: CYANOCOBALAMIN (VITAMIN B-12) 1,000 MCG/ML VIAL IM SCH (09:00)
== END 2017-09-19 11:49 | disposition home or self-care (01) | DRG 884 ==
LOC: EEVIPCON → GEROPSY 18:51
PROVIDERS: ADMIT Psychiatry & Neurology Psychiatry; ATTEND Psychiatry & Neurology Psychiatry
DX: F01.51 Vascular dementia, unspecified severity, with behavioral disturbance (principal); G30.9 Alzheimer's disease, unspecified; F02.81 Dementia in other diseases classified elsewhere, unspecified severity, with behavioral disturbance; F22 Delusional disorders; F32.9 Major depressive disorder, single episode, unspecified; F41.9 Anxiety disorder, unspecified; M41.9 Scoliosis, unspecified; F42.9 Obsessive-compulsive disorder, unspecified; F29 Unspecified psychosis not due to a substance or known physiological condition; F63.9 Impulse disorder, unspecified; K59.09 Other constipation; Z66 Do not resuscitate; Z91.041 Radiographic dye allergy status; Z91.040 Latex allergy status
CPT/HCPCS: 36415; 80053; 80061; 81001; 82306; 82607; 83036; 83540; 83550; 83735; 84436; 84443; 84480; 85025; 86593; 90686; 90732; J3420; 97110; 97116; 97530

== ENCOUNTER 2017-11-01 18:35 | Inpatient (IN) | payer MEDICARE ==
[~2017-11-01] VITALS: Ht 142.2 cm; Wt 69.9 kg
[~2017-11-01 18:35] MED LIST: ACET325T9 PO; ACET500T68 PO; ASCO500T2 PO; BISA5TAB4 PO; CALC500T PO; CHOL500050 PO; CYAN10002 IJ; DONE10TA7 PO; DONE5TAB7 PO; ESCITALOPRAM OX20 MG PO; FERR324T8 PO; FLUV50TA2 PO; LIDO700A39 TP; LORA-434 PO; LORA0.5T PO; MAG30ORA2 PO; MAGN2400 PO; MAGN400O7 PO; METH29OI TP; MIRT15TA3 PO; OLAN5TAB5 PO; ONDA4TAB7 PO; PANT40TA5 PO; QUET25TA5 PO
[2017-11-01] MEDS ORDERED: ONDA4TAB7 PO (19:10)
[2017-11-01] MEDS ORDERED: ALPRAZolam 0.25 MG TABLET ONE ×2 (19:21→19:23)
[2017-11-01] MEDS ORDERED: ALPRAZolam 0.25 MG TABLET PO ONE (19:30)
[2017-11-01 19:35] LABS: BASO % 1 % (0-3); EOS # 0.1 x10^3/uL (0.0-0.7); EOS % 2 % (0-3); HEMATOCRIT 41.5 % (36.0-47.0); HEMOGLOBIN 13.7 g/dL (12.0-15.5); LYMPH # 2.2 x10^3/uL (1.0-4.8); LYMPH % 33 % (24-48); MEAN CORPUSCULAR HEMOGLOBIN 30 pg (25-35); MEAN CORPUSCULAR HGB CONC 33 g/dL (31-37); MEAN CORPUSCULAR VOLUME 92 fL (79-100); MONO # 0.6 x10^3/uL (0.0-1.1); MONO % 9 % (0-9); NEUT # 3.7 x10^3uL (1.8-7.7); NEUT % 55 % (31-73); PLATELET COUNT 219 x10^3/uL (140-400); RED BLOOD COUNT 4.52 x10^6/uL (3.50-5.40); RED CELL DISTRIBUTION WIDTH 14.3 % (11.5-14.5); WHITE BLOOD COUNT 6.6 x10^3/uL (4.0-11.0)
[2017-11-01 19:41] LABS: CALCIUM 8.9 mg/dL (8.5-10.1); CREATININE 0.9 mg/dL (0.6-1.0); GFR 61.4; POTASSIUM 3.9 mmol/L (3.5-5.1)
[2017-11-01 20:11] LABS: BACTERIA,URINE 0 /HPF (0-FEW); BILIRUBIN,URINE NEG (NEG); CLARITY,URINE CLEAR; COLOR,URINE STRAW; GLUCOSE,URINE NEG (NEG); NITRITE,URINE NEG (NEG); SQUAMOUS EPITHELIAL CELL,UR MANY /LPF
[2017-11-01 20:12] LABS: UROBILINOGEN,URINE 0.2 mg/dL (0.2 mg/dL)
[2017-11-01 21:01] VITALS: BP 171/93
[2017-11-01] MEDS ORDERED: MAG HYDROX/AL HYDROX/SIMETH 30 ML ORAL.SUSP PO PRN (21:15)
[2017-11-01] MEDS ORDERED: METHYL SALICYLATE/MENTHOL TOPICAL OINTMENT 29GM TUBE. TP PRN (21:15)
[2017-11-01] MEDS ORDERED: BISACODYL TAB 5 MG TABLET.DR. PO PRN (21:15)
[2017-11-01] MEDS ORDERED: CALCIUM CARBONATE 500 MG TAB.CHEW PO PRN (21:30)
[2017-11-01] MEDS ORDERED: MAGNESIUM HYDROXIDE 2,400 MG/30 ML ORAL.SUSP. PO PRN (21:30)
[2017-11-01 21:32] LABS: ALBUMIN 3.4 g/dL (3.4-5.0); MAGNESIUM 2.3 mg/dL (1.8-2.4); TOTAL BILIRUBIN 0.3 mg/dL (0.2-1.0)
[2017-11-01] MEDS: MIRTAZAPINE 15 MG TABLET PO SCH (21:33)
[2017-11-01] MEDS: QUEtiapine 25 MG TABLET. PO SCH (21:33)
[2017-11-01] MEDS ORDERED: ONDANSETRON ODT 4 MG TAB.RAPDIS PO PRN (21:45)
[2017-11-01 21:48] LABS: DIRECT BILIRUBIN 0.1 mg/dL (0.0-0.2)
[2017-11-01] MEDS ORDERED: MIRTAZAPINE 15 MG TABLET PO SCH (22:00)
--- NOTE | 2017-11-01 22:09 | EKG ---
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
--- NOTE | 2017-11-02 03:54 | PHYS DOC ---
Past History Past Medical History: Constipation, Dementia, Hypertension Past Surgical History: No Surgical History Alcohol Use: None Drug Use: None Adult General Chief Complaint Chief Complaint: PSYCH EVALUATION HPI HPI 72-year-old female with a history of dementia lives at a senior living now sent for evaluation of aggression and difficult behaviors anticipating medical clearance for psychiatric admission to [facility]. Patient is well -appearing and has no complaints Review of Systems Review of Systems Constitutional: Denies fever or chills [] Eyes: Denies change in visual acuity, redness, or eye pain [] HENT: Denies nasal congestion or sore throat [] Respiratory: Denies cough or shortness of breath [] Cardiovascular: No additional information not addressed in HPI [] GI: Denies abdominal pain, nausea, vomiting, bloody stools or diarrhea [] : Denies dysuria or hematuria [] Musculoskeletal: Denies back pain or joint pain [] Integument: Denies rash or skin lesions [] Neurologic: Denies headache, focal weakness or sensory changes [] Endocrine: Denies polyuria or polydipsia [] All other systems were reviewed and found to be within normal limits, except as documented in this note. Current Medications Current Medications Current Medications Medications (Trade) Dose Ordered Sig/Duran Start Time Stop Time Status Last Admin Dose Admin Alprazolam (Xanax) 0.25 mg STK-MED ONCE 11/01/17 19:23 11/01/17 19:24 DC Allergies Allergies Allergies Coded Allergies Type Severity Reaction Last Updated Verified Iodinated Contrast- Oral and IV Dye Allergy Intermediate 08/28/17 Yes latex Allergy Intermediate 08/28/17 Yes Physical Exam Physical Exam 72-year-old female smiling comfortable appearing no acute distress alert communicative cooperative. Pleasant and conversant but manifesting her chronic dementia Constitutional: Well developed, well nourished, no acute distress, non-toxic appearance. [] HENT: Normocephalic, atraumatic, bilateral external ears normal, oropharynx moist, no oral exudates, nose normal. [] Eyes: PERRLA, EOMI, conjunctiva normal, no discharge. [] Neck: Normal range of motion, no tenderness, supple, no stridor. [] Cardiovascular:Heart rate regular rhythm, no murmur [] Lungs & Thorax: Bilateral breath sounds clear to auscultation [] Abdomen: Bowel sounds normal, soft, no tenderness, no masses, no pulsatile masses. [] Skin: Warm, dry, no erythema, no rash. [] Back: No tenderness, no CVA tenderness. [] Extremities: No tenderness, no cyanosis, no clubbing, ROM intact, no edema. [] Neurologic: Alert and oriented X2, normal motor function, normal sensory function, no focal deficits noted. [] Psychologic: Affect normal, judgement normal, mood normal. [] Current Patient Data Vital Signs Vital Signs Date Time Temp Pulse Resp B/P (MAP) Pulse Ox O2 Delivery O2 Flow Rate FiO2 11/01/17 21:01 97.7 61 20 171/93 (119) 97 11/01/17 20:27 Room Air Lab Results Laboratory Tests Test 11/01/17 19:15 11/01/17 19:37 White Blood Count 6.6 x10^3/uL (4.0-11.0) Red Blood Count 4.52 x10^6/uL (3.50-5.40) Hemoglobin 13.7 g/dL (12.0-15.5) Hematocrit 41.5 % (36.0-47.0) Mean Corpuscular Volume 92 fL (79-100) Mean Corpuscular Hemoglobin 30 pg (25-35) Mean Corpuscular Hemoglobin Concent 33 g/dL (31-37) Red Cell Distribution Width 14.3 % (11.5-14.5) Platelet Count 219 x10^3/uL (140-400) Neutrophils (%) (Auto) 55 % (31-73) Lymphocytes (%) (Auto) 33 % (24-48) Monocytes (%) (Auto) 9 % (0-9) Eosinophils (%) (Auto) 2 % (0-3) Basophils (%) (Auto) 1 % (0-3) Neutrophils # (Auto) 3.7 x10^3uL (1.8-7.7) Lymphocytes # (Auto) 2.2 x10^3/uL (1.0-4.8) Monocytes # (Auto) 0.6 x10^3/uL (0.0-1.1) Eosinophils # (Auto) 0.1 x10^3/uL (0.0-0.7) Basophils # (Auto) 0.0 x10^3/uL (0.0-0.2) Sodium Level 146 mmol/L (136-145) H Potassium Level 3.9 mmol/L (3.5-5.1) Chloride Level 108 mmol/L (98-107) H Carbon Dioxide Level 29 mmol/L (21-32) Anion Gap 9 (6-14) Blood Urea Nitrogen 15 mg/dL (7-20) Creatinine 0.9 mg/dL (0.6-1.0) Estimated GFR (Cockcroft-Gault) 61.4 Glucose Level 87 mg/dL (70-99) Calcium Level 8.9 mg/dL (8.5-10.1) Magnesium Level 2.3 mg/dL (1.8-2.4) Total Bilirubin 0.3 mg/dL (0.2-1.0) Direct Bilirubin 0.1 mg/dL (0.0-0.2) Aspartate Amino Transferase (AST) 19 U/L (15-37) Alanine Aminotransferase (ALT) 27 U/L (14-59) Alkaline Phosphatase 141 U/L (46-116) H Troponin I Quantitative < 0.017 ng/mL (0-0.055) Total Protein 7.0 g/dL (6.4-8.2) Albumin 3.4 g/dL (3.4-5.0) Urine Collection Type U cath Urine Color Straw Urine Clarity Clear Urine pH 5.0 Urine Specific [place] >=1.030 Urine Protein Neg (NEG-TRACE) Urine Glucose (UA) Neg mg/dL (NEG) Urine Ketones (Stick) Neg mg/dL (NEG) Urine Blood Neg (NEG) Urine Nitrite Neg (NEG) Urine Bilirubin Neg (NEG) Urine Urobilinogen Dipstick 0.2 mg/dL (0.2 mg/dL) Urine Leukocyte Esterase Neg (NEG) Urine RBC 3-5 /HPF (0-2) Urine WBC 5-10 /HPF (0-4) Urine Squamous Epithelial Cells Many /LPF Urine Bacteria 0 /HPF (0-FEW) Urine Mucus Mod /LPF EKG EKG EKG with normal sinus rhythm at 57 left axis deviation no STEMI interpreted by me[] Radiology/Procedures Radiology/Procedures [] Course & Med Decision Making Course & Med Decision Making Pertinent Labs and Imaging studies reviewed. (See chart for details) Signs and symptoms consistent with behavioral difficulties, aggression and exacerbation of dementia. Full workup unremarkable. Patient medically clear for psychiatric evaluation and admission to the service of Dr. Poncho Marcial Disclaimer Aniket Disclaimer This electronic medical record was generated, in whole or in part, using a voice recognition dictation system. Departure Departure: Impression: Primary Impression: Major neurocognitive disorder, due to vascular disease, with behavioral disturbance, mild Additional Impression: Aggression Disposition: ADMITTED INPATIENT Admitting Physician: Other Condition: GOOD Referrals: AKSHAT BYRNE DO (PCP) Problem Qualifiers KVNG SHELBY MD Nov 02, 2017 03:53
[2017-11-02 06:03] VITALS: BP 161/94
[2017-11-02] MEDS: ASCORBIC ACID 500 MG TABLET PO SCH ×2 (07:52→19:48)
[2017-11-02] MEDS: PANTOPRAZOLE 40 MG TABLET. PO SCH (07:52)
[2017-11-02] MEDS: DONEPEZIL HCL 10 MG TABLET PO SCH (07:52)
[2017-11-02] MEDS: QUEtiapine 25 MG TABLET. PO SCH ×4 (07:53→19:48)
[2017-11-02] MEDS: FERROUS GLUCONATE 324 MG TABLET PO SCH ×2 (07:53→19:51)
[2017-11-02 15:30] VITALS: BP 143/88
--- NOTE | 2017-11-02 18:25 | PDOC ---
Exam Note: Jarrod Note: Please also refer to the separate dictated note~for this date of service dictated separately.~Patient seen individually. Discussed the patient with Nursing staff reviewed the chart.~Reviewed interim history and current functioning. Reviewed vital signs,~Labs/ Radiology~and current medications noted below. Continue current treatment with the changes noted in the dictated addendum note Assessment: Vital Signs: Vital Signs Date Time Temp Pulse Resp B/P (MAP) Pulse Ox O2 Delivery O2 Flow Rate FiO2 11/02/17 15:30 96.3 70 18 143/88 (106) 97 11/01/17 20:27 Room Air I&O Intake and Output 11/02/17 07:00 # Voids 1 Labs: Laboratory Tests Test 11/01/17 19:15 11/01/17 19:37 White Blood Count 6.6 x10^3/uL (4.0-11.0) Red Blood Count 4.52 x10^6/uL (3.50-5.40) Hemoglobin 13.7 g/dL (12.0-15.5) Hematocrit 41.5 % (36.0-47.0) Mean Corpuscular Volume 92 fL (79-100) Mean Corpuscular Hemoglobin 30 pg (25-35) Mean Corpuscular Hemoglobin Concent 33 g/dL (31-37) Red Cell Distribution Width 14.3 % (11.5-14.5) Platelet Count 219 x10^3/uL (140-400) Neutrophils (%) (Auto) 55 % (31-73) Lymphocytes (%) (Auto) 33 % (24-48) Monocytes (%) (Auto) 9 % (0-9) Eosinophils (%) (Auto) 2 % (0-3) Basophils (%) (Auto) 1 % (0-3) Neutrophils # (Auto) 3.7 x10^3uL (1.8-7.7) Lymphocytes # (Auto) 2.2 x10^3/uL (1.0-4.8) Monocytes # (Auto) 0.6 x10^3/uL (0.0-1.1) Eosinophils # (Auto) 0.1 x10^3/uL (0.0-0.7) Basophils # (Auto) 0.0 x10^3/uL (0.0-0.2) Sodium Level 146 mmol/L (136-145) H Potassium Level 3.9 mmol/L (3.5-5.1) Chloride Level 108 mmol/L (98-107) H Carbon Dioxide Level 29 mmol/L (21-32) Anion Gap 9 (6-14) Blood Urea Nitrogen 15 mg/dL (7-20) Creatinine 0.9 mg/dL (0.6-1.0) Estimated GFR (Cockcroft-Gault) 61.4 Glucose Level 87 mg/dL (70-99) Calcium Level 8.9 mg/dL (8.5-10.1) Magnesium Level 2.3 mg/dL (1.8-2.4) Total Bilirubin 0.3 mg/dL (0.2-1.0) Direct Bilirubin 0.1 mg/dL (0.0-0.2) Aspartate Amino Transferase (AST) 19 U/L (15-37) Alanine Aminotransferase (ALT) 27 U/L (14-59) Alkaline Phosphatase 141 U/L (46-116) H Troponin I Quantitative < 0.017 ng/mL (0-0.055) Total Protein 7.0 g/dL (6.4-8.2) Albumin 3.4 g/dL (3.4-5.0) Urine Collection Type U cath Urine Color Straw Urine Clarity Clear Urine pH 5.0 Urine Specific [place] >=1.030 Urine Protein Neg (NEG-TRACE) Urine Glucose (UA) Neg mg/dL (NEG) Urine Ketones (Stick) Neg mg/dL (NEG) Urine Blood Neg (NEG) Urine Nitrite Neg (NEG) Urine Bilirubin Neg (NEG) Urine Urobilinogen Dipstick 0.2 mg/dL (0.2 mg/dL) Urine Leukocyte Esterase Neg (NEG) Urine RBC 3-5 /HPF (0-2) Urine WBC 5-10 /HPF (0-4) Urine Squamous Epithelial Cells Many /LPF Urine Bacteria 0 /HPF (0-FEW) Urine Mucus Mod /LPF Current Medications: Meds: Current Medications Alprazolam (Xanax) 0.5 mg 1X ONCE PO Last administered on 11/01/17at 19:25; Start 11/01/17 at 19:30; Stop 11/01/17 at 19:31; Status DC Alprazolam (Xanax) 0.25 mg STK-MED ONCE .ROUTE ; Start 11/01/17 at 19:21; Stop 11/01/17 at 19:22; Status DC Alprazolam (Xanax) 0.25 mg STK-MED ONCE .ROUTE ; Start 11/01/17 at 19:23; Stop 11/01/17 at 19:24; Status DC Donepezil HCl (Aricept) 10 mg DAILY PO Last administered on 11/02/17at 07:52; Start 11/02/17 at 09:00 Mirtazapine (Remeron) 7.5 mg QHS PO ; Start 11/01/17 at 22:00; Stop 11/01/17 at 22:00; Status DC Quetiapine Fumarate (SEROquel) 12.5 mg DAILYWLUN PO Last administered on at 11:44; Start 11/02/17 at 12:00 Quetiapine Fumarate (SEROquel) 25 mg TID@0900,1700,2100 PO Last administered on 11/02/17at 16:58; Start 11/01/17 at 22:00 Fluvoxamine Maleate (Luvox) 50 mg DAILY PO Last administered on 11/02/17at 07:52 ; Start 11/02/17 at 09:00 Acetaminophen (Tylenol) 650 mg PRN Q6HRS PRN PO PAIN / TEMP; Start 11/01/17 at 21:15 Ascorbic Acid (Vitamin C) 500 mg BID PO Last administered on 11/02/17at 07:52; Start 11/02/17 at 09:00 Bisacodyl (Dulcolax Tab) 10 mg PRN DAILY PRN PO CONSTIPATION; Start 11/01/17 at 21:15 Calcium Carbonate/ Glycine (Tums) 500 mg PRN Q4HRS PRN PO DYSPEPSIA; Start 06/10 at 21:30 Ferrous Gluconate (Fergon) 324 mg BID PO Last administered on 11/02/17at 07:53; Start 11/02/17 at 09:00 Pantoprazole Sodium (Protonix) 40 mg DAILYAC PO Last administered on 11/02/17at 07:52; Start 11/02/17 at 07:30 Magnesium Hydroxide (Milk Of Magnesia) 2,400 mg PRN QHS PRN PO CONSTIPATION; Start 11/01/17 at 21:30 Ondansetron HCl (Zofran Odt) 4 mg PRN Q6HRS PRN PO NAUSEA/VOMITING; Start 11/01 at 21:45 Multi-Ingredient Ointment (Analgesic [place]) 1 serg PRN QID PRN TP MUSCLE PAIN; Start 11/01/17 at 21:15 Al Hydroxide/Mg Hydroxide (Mylanta Plus Xs) 15 ml PRN AFTMEALHC PRN PO DYSPEPSIA; Start 11/01/17 at 21:15 Mirtazapine (Remeron) 15 mg QHS PO Last administered on 11/01/17at 21:33; Start 11/01/17 at 21:29 Active Scripts Active Reported Zofran (Ondansetron Hcl) 4 Mg Tablet 4 Mg PO PRN Q6HRS PRN Fluvoxamine Maleate 50 Mg Tablet 50 Mg PO DAILY Seroquel (Quetiapine Fumarate) 25 Mg Tablet 25 Mg PO TID@0900,1700,2100 Seroquel (Quetiapine Fumarate) 25 Mg Tablet 12.5 Mg PO DAILY 1300 Mirtazapine 15 Mg Tablet 15 Mg PO QHS Milk Of Magnesia (Magnesium Hydroxide) 2,400 Mg/10 Ml Oral.susp 2,400 Mg PO PRN QHS PRN Donepezil Hcl 10 Mg Tablet 10 Mg PO DAILY Tylenol (Acetaminophen) 325 Mg Tablet 650 Mg PO PRN Q6HRS PRN Maximum Acetaminophen dose is 4000 mg in 24 hours from all sources for adults Vitamin C (Ascorbic Acid) 500 Mg Tablet 500 Mg PO BID Calcium Carbonate 500 Mg Tablet 500 Mg PO PRN Q4HRS PRN Pantoprazole Sodium 40 Mg Tablet.dr 40 Mg PO DAILYAC Ferrous Gluconate 324 Mg Tablet 324 Mg PO BID Bisacodyl 5 Mg Tablet.dr 10 Mg PO PRN DAILY PRN I have reviewed the current psychotropics carefully including drug interactions. Risk benefit ratio favors no change other than as noted in my dictated progress note. Diagnosis: Problems: (1) Major neurocognitive disorder, due to vascular disease, with behavioral disturbance, mild (2) Alzheimer's dementia (3) Delusion REX ANGELES MD Nov 02, 2017 18:25
[2017-11-02] MEDS: MIRTAZAPINE 15 MG TABLET PO SCH (19:48)
[2017-11-02 20:11] LABS: T3 TOTAL 87 ng/dL (71-180); THYROXINE 6.4 ug/dL (4.5-12.0)
--- NOTE | 2017-11-02 20:47 | PDOC ---
Exam Note: Jarrod Note: Please also refer to the separate dictated note~for this date of service dictated separately.~Patient seen individually. Discussed the patient with Nursing staff reviewed the chart.~Reviewed interim history and current functioning. Reviewed vital signs,~Labs/ Radiology~and current medications noted below. Continue current treatment with the changes noted in the dictated addendum note Assessment: Vital Signs: Vital Signs Date Time Temp Pulse Resp B/P (MAP) Pulse Ox O2 Delivery O2 Flow Rate FiO2 11/02/17 15:30 96.3 70 18 143/88 (106) 97 11/01/17 20:27 Room Air I&O Intake and Output 11/02/17 07:00 # Voids 1 Current Medications: Meds: Current Medications Alprazolam (Xanax) 0.5 mg 1X ONCE PO Last administered on 11/01/17at 19:25; Start 11/01/17 at 19:30; Stop 11/01/17 at 19:31; Status DC Alprazolam (Xanax) 0.25 mg STK-MED ONCE .ROUTE ; Start 11/01/17 at 19:21; Stop 11/01/17 at 19:22; Status DC Alprazolam (Xanax) 0.25 mg STK-MED ONCE .ROUTE ; Start 11/01/17 at 19:23; Stop 11/01/17 at 19:24; Status DC Donepezil HCl (Aricept) 10 mg DAILY PO Last administered on 11/02/17at 07:52; Start 11/02/17 at 09:00 Mirtazapine (Remeron) 7.5 mg QHS PO ; Start 11/01/17 at 22:00; Stop 11/01/17 at 22:00; Status DC Quetiapine Fumarate (SEROquel) 12.5 mg DAILYWLUN PO Last administered on at 11:44; Start 11/02/17 at 12:00 Quetiapine Fumarate (SEROquel) 25 mg TID@0900,1700,2100 PO Last administered on 11/02/17at 19:48; Start 11/01/17 at 22:00 Fluvoxamine Maleate (Luvox) 50 mg DAILY PO Last administered on 11/02/17at 07:52 ; Start 11/02/17 at 09:00 Acetaminophen (Tylenol) 650 mg PRN Q6HRS PRN PO PAIN / TEMP; Start 11/01/17 at 21:15 Ascorbic Acid (Vitamin C) 500 mg BID PO Last administered on 11/02/17at 19:48; Start 11/02/17 at 09:00 Bisacodyl (Dulcolax Tab) 10 mg PRN DAILY PRN PO CONSTIPATION; Start 11/01/17 at 21:15 Calcium Carbonate/ Glycine (Tums) 500 mg PRN Q4HRS PRN PO DYSPEPSIA; Start 06/10 at 21:30 Ferrous Gluconate (Fergon) 324 mg BID PO Last administered on 11/02/17at 19:51; Start 11/02/17 at 09:00 Pantoprazole Sodium (Protonix) 40 mg DAILYAC PO Last administered on 11/02/17at 07:52; Start 11/02/17 at 07:30 Magnesium Hydroxide (Milk Of Magnesia) 2,400 mg PRN QHS PRN PO CONSTIPATION; Start 11/01/17 at 21:30 Ondansetron HCl (Zofran Odt) 4 mg PRN Q6HRS PRN PO NAUSEA/VOMITING; Start 11/01 at 21:45 Multi-Ingredient Ointment (Analgesic [place]) 1 serg PRN QID PRN TP MUSCLE PAIN; Start 11/01/17 at 21:15 Al Hydroxide/Mg Hydroxide (Mylanta Plus Xs) 15 ml PRN AFTMEALHC PRN PO DYSPEPSIA; Start 11/01/17 at 21:15 Mirtazapine (Remeron) 15 mg QHS PO Last administered on 11/02/17at 19:48; Start 11/01/17 at 21:29 Active Scripts Active Reported Zofran (Ondansetron Hcl) 4 Mg Tablet 4 Mg PO PRN Q6HRS PRN Fluvoxamine Maleate 50 Mg Tablet 50 Mg PO DAILY Seroquel (Quetiapine Fumarate) 25 Mg Tablet 25 Mg PO TID@0900,1700,2100 Seroquel (Quetiapine Fumarate) 25 Mg Tablet 12.5 Mg PO DAILY 1300 Mirtazapine 15 Mg Tablet 15 Mg PO QHS Milk Of Magnesia (Magnesium Hydroxide) 2,400 Mg/10 Ml Oral.susp 2,400 Mg PO PRN QHS PRN Donepezil Hcl 10 Mg Tablet 10 Mg PO DAILY Tylenol (Acetaminophen) 325 Mg Tablet 650 Mg PO PRN Q6HRS PRN Maximum Acetaminophen dose is 4000 mg in 24 hours from all sources for adults Vitamin C (Ascorbic Acid) 500 Mg Tablet 500 Mg PO BID Calcium Carbonate 500 Mg Tablet 500 Mg PO PRN Q4HRS PRN Pantoprazole Sodium 40 Mg Tablet.dr 40 Mg PO DAILYAC Ferrous Gluconate 324 Mg Tablet 324 Mg PO BID Bisacodyl 5 Mg Tablet.dr 10 Mg PO PRN DAILY PRN I have reviewed the current psychotropics carefully including drug interactions. Risk benefit ratio favors no change other than as noted in my dictated progress note. Diagnosis: Problems: (1) Aggression (2) Major neurocognitive disorder, due to vascular disease, with behavioral disturbance, mild (3) Alzheimer's dementia (4) Behavior problem (5) Delusion REX ANGELES MD Nov 02, 2017 20:47
--- NOTE | 2017-11-02 21:21 | HP ---
ADMIT DATE: 11/01/2017 This note covers the elements not covered in my initial note of 11/02/2017. IDENTIFYING DATA: The patient is a 72-year-old female referred back to us from [facility] by Dr. Ed Peterson, her primary care physician on account of worsening confusion, being combative with staff, aggressive towards peers, destroying property, increased agitation. Symptoms and behaviors had worsened over the past 2 weeks. She has failed outpatient psychiatric interventions and a prior inpatient stay at our facility. She is referred back for inpatient psychiatric stabilization. The patient was seen individually on evening of 11/02/2017. Discussed with nursing staff, reviewed the chart. Previously discussed with nursing staff on 2 or 3 occasions to gather referral information and background history. The patient is a 72-year-old female from [facility], referred as noted above. CHIEF COMPLAINT: "No" HISTORY OF PRESENT ILLNESS: The patient has a history of dementia, Alzheimer's vascular type. The patient has been residing at the above facility for some time and has had a prior inpatient stay here with us. Over the past 2 weeks, she has been increasingly agitated, aggressive, disruptive as noted above. She has had some sleep and appetite changes, appeared more paranoid. No active suicidal or homicidal ideation. No clear history of bipolar disorder. PAST PSYCHIATRIC HISTORY: As above. MEDICAL HISTORY: Chronic constipation, scoliosis. DIET: Regular, takes her medications whole, ambulates upright. CODE STATUS: Full code. ALLERGIES: LATEX, CONTRAST DYE. CURRENT PSYCHOTROPICS: Aricept 10 mg a day, Luvox 50 mg a day, Remeron 15 mg at bedtime, Seroquel 25 mg b.i.d. and 37.5 mg at 1400. FAMILY HISTORY: Noncontributory. SOCIAL HISTORY: No history of alcohol, drug abuse, physical, sexual or elder abuse history is noted. She is not known to be a perpetrator. MENTAL STATUS EXAMINATION: The patient was seen individually evening of 11/02/2017. She is walking with a significant kyphosis and scoliosis, oriented to herself. Insight, judgment, recent and remote memory, attention, concentration, fund of knowledge poor, consistent with her diagnosis. She is unable to recognize various objects around her that I presented to her. REACTION TO HOSPITALIZATION: The patient oblivious to this. ASSETS: Supportive family, stable living at the retirement. IMPRESSION: Major neurocognitive disorder, Alzheimer, vascular with depression, delusion, behavioral disturbance; anxiety disorder, unspecified; impulse control disorder, unspecified. Rest as above. PLAN: Admit to Geropsychiatry Unit at [facility]. I will see the patient daily individually from a psychiatric standpoint. Medical followup per Dr. Easton/Dr Garsia. Continue current psychotropics, observe baseline, may need to adjust Luvox for her obsessive thought processes and agitation. Further changes depending on baseline assessment. MAN Ifeanyi ANGELES MD DR: ADA/norah JOB#: [id number] / [id number]
[2017-11-02 23:32] LABS: THYROID STIM HORMONE (TSH) 2.795 uIU/mL (0.358-3.740)
[2017-11-03 04:09] LABS: HEMOGLOBIN A1C 5.3 % (4.8-5.6)
[2017-11-03 06:32] VITALS: BP 157/90
[2017-11-03] MEDS: PANTOPRAZOLE 40 MG TABLET. PO SCH (08:00)
[2017-11-03] MEDS: ASCORBIC ACID 500 MG TABLET PO SCH ×2 (08:00→19:34)
[2017-11-03] MEDS: FERROUS GLUCONATE 324 MG TABLET PO SCH ×2 (08:00→19:34)
[2017-11-03] MEDS: QUEtiapine 25 MG TABLET. PO SCH ×4 (08:00→19:34)
[2017-11-03] MEDS: DONEPEZIL HCL 10 MG TABLET PO SCH (08:00)
[2017-11-03 16:09] VITALS: BP 106/71
[2017-11-03] MEDS: MIRTAZAPINE 15 MG TABLET PO SCH (19:34)
--- NOTE | 2017-11-03 20:43 | PDOC ---
Exam Note: Jarrod Note: Please also refer to the separate dictated note~for this date of service dictated separately.~Patient seen individually. Discussed the patient with Nursing staff reviewed the chart.~Reviewed interim history and current functioning. Reviewed vital signs,~Labs/ Radiology~and current medications noted below. Continue current treatment with the changes noted in the dictated addendum note Assessment: Vital Signs: Vital Signs Date Time Temp Pulse Resp B/P (MAP) Pulse Ox O2 Delivery O2 Flow Rate FiO2 11/03/17 16:09 97.9 103 19 106/71 (83) 94 11/01/17 20:27 Room Air I&O Intake and Output 11/03/17 07:00 Intake Total 600 ml Balance 600 ml Intake Oral 600 ml Current Medications: Meds: Current Medications Alprazolam (Xanax) 0.5 mg 1X ONCE PO Last administered on 11/01/17at 19:25; Start 11/01/17 at 19:30; Stop 11/01/17 at 19:31; Status DC Alprazolam (Xanax) 0.25 mg STK-MED ONCE .ROUTE ; Start 11/01/17 at 19:21; Stop 11/01/17 at 19:22; Status DC Alprazolam (Xanax) 0.25 mg STK-MED ONCE .ROUTE ; Start 11/01/17 at 19:23; Stop 11/01/17 at 19:24; Status DC Donepezil HCl (Aricept) 10 mg DAILY PO Last administered on 11/03/17at 08:00; Start 11/02/17 at 09:00 Mirtazapine (Remeron) 7.5 mg QHS PO ; Start 11/01/17 at 22:00; Stop 11/01/17 at 22:00; Status DC Quetiapine Fumarate (SEROquel) 12.5 mg DAILYWLUN PO Last administered on at 12:41; Start 11/02/17 at 12:00 Quetiapine Fumarate (SEROquel) 25 mg TID@0900,1700,2100 PO Last administered on 11/03/17at 19:34; Start 11/01/17 at 22:00 Fluvoxamine Maleate (Luvox) 50 mg DAILY PO Last administered on 11/03/17at 08:00 ; Start 11/02/17 at 09:00 Acetaminophen (Tylenol) 650 mg PRN Q6HRS PRN PO PAIN / TEMP; Start 11/01/17 at 21:15 Ascorbic Acid (Vitamin C) 500 mg BID PO Last administered on 11/03/17at 19:34; Start 11/02/17 at 09:00 Bisacodyl (Dulcolax Tab) 10 mg PRN DAILY PRN PO CONSTIPATION; Start 11/01/17 at 21:15 Calcium Carbonate/ Glycine (Tums) 500 mg PRN Q4HRS PRN PO DYSPEPSIA; Start 06/10 at 21:30 Ferrous Gluconate (Fergon) 324 mg BID PO Last administered on 11/03/17 19:34; Start 11/02/17 at 09:00 Pantoprazole Sodium (Protonix) 40 mg DAILYAC PO Last administered on 11/03/17at 08:00; Start 11/02/17 at 07:30 Magnesium Hydroxide (Milk Of Magnesia) 2,400 mg PRN QHS PRN PO CONSTIPATION; Start 11/01/17 at 21:30 Ondansetron HCl (Zofran Odt) 4 mg PRN Q6HRS PRN PO NAUSEA/VOMITING; Start 11/01 at 21:45 Multi-Ingredient Ointment (Analgesic [place]) 1 serg PRN QID PRN TP MUSCLE PAIN; Start 11/01/17 at 21:15 Al Hydroxide/Mg Hydroxide (Mylanta Plus Xs) 15 ml PRN AFTMEALHC PRN PO DYSPEPSIA; Start 11/01/17 at 21:15 Mirtazapine (Remeron) 15 mg QHS PO Last administered on 11/03/17at 19:34; Start 11/01/17 at 21:29 Olanzapine (ZyPREXA ZYDIS) 2.5 mg PRN Q2HR PRN PO PSYCHOSIS; Start 11/03/17 at 08:00 Active Scripts Active Reported Zofran (Ondansetron Hcl) 4 Mg Tablet 4 Mg PO PRN Q6HRS PRN Fluvoxamine Maleate 50 Mg Tablet 50 Mg PO DAILY Seroquel (Quetiapine Fumarate) 25 Mg Tablet 25 Mg PO TID@0900,1700,2100 Seroquel (Quetiapine Fumarate) 25 Mg Tablet 12.5 Mg PO DAILY 1300 Mirtazapine 15 Mg Tablet 15 Mg PO QHS Milk Of Magnesia (Magnesium Hydroxide) 2,400 Mg/10 Ml Oral.susp 2,400 Mg PO PRN QHS PRN Donepezil Hcl 10 Mg Tablet 10 Mg PO DAILY Tylenol (Acetaminophen) 325 Mg Tablet 650 Mg PO PRN Q6HRS PRN Maximum Acetaminophen dose is 4000 mg in 24 hours from all sources for adults Vitamin C (Ascorbic Acid) 500 Mg Tablet 500 Mg PO BID Calcium Carbonate 500 Mg Tablet 500 Mg PO PRN Q4HRS PRN Pantoprazole Sodium 40 Mg Tablet.dr 40 Mg PO DAILYAC Ferrous Gluconate 324 Mg Tablet 324 Mg PO BID Bisacodyl 5 Mg Tablet.dr 10 Mg PO PRN DAILY PRN I have reviewed the current psychotropics carefully including drug interactions. Risk benefit ratio favors no change other than as noted in my dictated progress note. Diagnosis: Problems: (1) Aggression (2) Major neurocognitive disorder, due to vascular disease, with behavioral disturbance, mild (3) Alzheimer's dementia (4) Behavior problem (5) Delusion REX ANGELES MD Nov 03, 2017 20:43
--- NOTE | 2017-11-04 05:22 | CONS ---
DATE OF CONSULTATION: 11/03/2017 REASON FOR CONSULTATION: Medical management. HISTORY OF PRESENT ILLNESS: The patient is a 72-year-old female patient who is a resident at [facility], who was admitted on the account of being combative with staff, aggressive towards peers, destroying property, increased agitation, all this on a background of major neurocognitive disorder, Alzheimer, vascular with depression. She apparently was here recently for similar problems. However, on questioning her today, she denied any complaint. She was very pleasant, cooperative and compliant. PAST MEDICAL HISTORY: Significant for dementia, scoliosis and chronic constipation. PAST SURGICAL HISTORY: Unremarkable. FAMILY HISTORY: Unobtainable. SOCIAL HISTORY: She is apparently a resident at [facility] assisted living facility. She does not smoke, drink alcohol or use recreational drugs. MEDICATIONS: She is currently on following medications: She is on Aricept 10 mg daily, ferrous sulfate 324 mg twice a day, acetaminophen 650 mg p.o. q. 6 hourly., fluvoxamine 50 mg daily, mirtazapine 15 mg at bedtime, quetiapine fumarate 12.5 mg daily, quetiapine fumarate 25 mg 3 times a day, calcium carbonate 500 mg every 4 hours, bisacodyl 5 mg tablet daily, magnesium hydroxide for milk of magnesia 30 mL daily p.r.n. for constipation, ondansetron 4 mg every 6 hours, Protonix 40 mg daily, ascorbic acid 500 mg b.i.d. PHYSICAL EXAMINATION: GENERAL: When I examined her, she looked well and was clearly in no apparent respiratory distress, pale. No jaundice, cyanosis, or thyromegaly. No jugular distension. No lower limb edema. VITAL SIGNS: Her heart rate was 103, blood pressure 106/71, temperature was 97.9, respiratory rate was 19 and oxygen saturation was 94%. HEAD, EYES, EARS, NOSE AND THROAT: Showed normocephalic, atraumatic. NECK: Supple. HEART: Showed normal first and second heart sounds with no gallop, rub or murmur. CHEST: Clear to auscultation. No crepitation or rhonchi. ABDOMEN: Distended, soft, nontender. NEUROLOGIC: She is awake, alert, but confused and demented without any lateralizing sign. All her cranial nerves intact. EXTREMITIES: She moves her extremities without difficulty. She ambulates without assistance or assistive devices. She has marked scoliosis. LABORATORY DATA: Showed a white cell count 6600, hemoglobin 14, hematocrit 42, MCV 92, and platelet count 219,000. Her chemistry showed a serum sodium 146, potassium 3.9, chloride 108, bicarbonate 29, anion gap of 9, BUN 15, creatinine 0.9. Estimated GFR was 61 mL per minute. Her glucose was 87, calcium was 8.9, magnesium 2.3. Total bilirubin, AST, ALT, alkaline phosphatase were normal. Her total protein was 7, albumin was 3.4. Her serum iron was 61, TIBC was 139 and percent saturation was 26%. Her serum triglycerides were 65, total cholesterol 182, LDL was 113, VLDL was 13, HDL was 56, and cholesterol to HDL cholesterol ratio was 3. TSH is normal 2.795. Total T4 was 6.4. Total T3 was 87. Her vitamin B12 is 288 pg/mL. Her 25-hydroxy vitamin D was 23.2. IMPRESSION: In summary, this is again a 72-year-old female patient who was admitted on account of being combative with staff, aggressive towards peers, destroying property, increased agitation, all this in a background of major neurocognitive disorder, Alzheimer, vascular type with depression. Her lab work showed that she has vitamin D deficiency. Vitamin B12 also borderline. Her urinalysis was essentially unremarkable, and the RPR was nonreactive. PLAN: My plan is to replenish her vitamin D and also vitamin B12. I will follow all her other lab work and make any necessary recommendation. Thank you Dr. Isaac for allowing me to participate in the care of this patient. DARREN MCKEE MD DR: DANIELA/norah JOB#: [id number] / [id number]
[2017-11-04 06:23] VITALS: BP 139/77
[2017-11-04] MEDS: QUEtiapine 25 MG TABLET. PO SCH ×4 (08:03→19:31)
[2017-11-04] MEDS: ASCORBIC ACID 500 MG TABLET PO SCH ×2 (08:03→19:31)
[2017-11-04] MEDS: DONEPEZIL HCL 10 MG TABLET PO SCH (08:03)
[2017-11-04] MEDS: FERROUS GLUCONATE 324 MG TABLET PO SCH ×2 (08:03→19:32)
[2017-11-04] MEDS: PANTOPRAZOLE 40 MG TABLET. PO SCH (08:04)
[2017-11-04 16:23] VITALS: BP 113/79
[2017-11-04] MEDS: CHOLECALCIFEROL (VITAMIN D3) 50,000 UNIT CAPSULE PO SCH (16:39)
[2017-11-04] MEDS: MIRTAZAPINE 15 MG TABLET PO SCH (19:31)
--- NOTE | 2017-11-04 19:40 | PDOC ---
Exam Note: Jarrod Note: Please also refer to the separate dictated note~for this date of service dictated separately.~Patient seen individually. Discussed the patient with Nursing staff reviewed the chart.~Reviewed interim history and current functioning. Reviewed vital signs,~Labs/ Radiology~and current medications noted below. Continue current treatment with the changes noted in the dictated addendum note Assessment: Vital Signs: Vital Signs Date Time Temp Pulse Resp B/P (MAP) Pulse Ox O2 Delivery O2 Flow Rate FiO2 11/04/17 16:23 98.1 76 19 113/79 (90) 94 Room Air I&O Intake and Output 11/04/17 07:00 Intake Total 360 ml Balance 360 ml Intake Oral 360 ml Current Medications: Meds: Current Medications Alprazolam (Xanax) 0.5 mg 1X ONCE PO Last administered on 11/01/17at 19:25; Start 11/01/17 at 19:30; Stop 11/01/17 at 19:31; Status DC Alprazolam (Xanax) 0.25 mg STK-MED ONCE .ROUTE ; Start 11/01/17 at 19:21; Stop 11/01/17 at 19:22; Status DC Alprazolam (Xanax) 0.25 mg STK-MED ONCE .ROUTE ; Start 11/01/17 at 19:23; Stop 11/01/17 at 19:24; Status DC Donepezil HCl (Aricept) 10 mg DAILY PO Last administered on 11/04/17at 08:03; Start 11/02/17 at 09:00 Mirtazapine (Remeron) 7.5 mg QHS PO ; Start 11/01/17 at 22:00; Stop 11/01/17 at 22:00; Status DC Quetiapine Fumarate (SEROquel) 12.5 mg DAILYWLUN PO Last administered on at 12:31; Start 11/02/17 at 12:00 Quetiapine Fumarate (SEROquel) 25 mg TID@0900,1700,2100 PO Last administered on 11/04/17at 19:31; Start 11/01/17 at 22:00 Fluvoxamine Maleate (Luvox) 50 mg DAILY PO Last administered on 11/04/17at 08:03 ; Start 11/02/17 at 09:00; Stop 11/04/17 at 18:17; Status DC Acetaminophen (Tylenol) 650 mg PRN Q6HRS PRN PO PAIN / TEMP; Start 11/01/17 at 21:15 Ascorbic Acid (Vitamin C) 500 mg BID PO Last administered on 11/04/17at 19:31; Start 11/02/17 at 09:00 Bisacodyl (Dulcolax Tab) 10 mg PRN DAILY PRN PO CONSTIPATION; Start 11/01/17 at 21:15 Calcium Carbonate/ Glycine (Tums) 500 mg PRN Q4HRS PRN PO DYSPEPSIA; Start 06/10 at 21:30 Ferrous Gluconate (Fergon) 324 mg BID PO Last administered on 11/04/17at 19:32; Start 11/02/17 at 09:00 Pantoprazole Sodium (Protonix) 40 mg DAILYAC PO Last administered on 11/04/17at 08:04; Start 11/02/17 at 07:30 Magnesium Hydroxide (Milk Of Magnesia) 2,400 mg PRN QHS PRN PO CONSTIPATION; Start 11/01/17 at 21:30 Ondansetron HCl (Zofran Odt) 4 mg PRN Q6HRS PRN PO NAUSEA/VOMITING; Start 11/01 at 21:45 Multi-Ingredient Ointment (Analgesic [place]) 1 serg PRN QID PRN TP MUSCLE PAIN; Start 11/01/17 at 21:15 Al Hydroxide/Mg Hydroxide (Mylanta Plus Xs) 15 ml PRN AFTMEALHC PRN PO DYSPEPSIA; Start 11/01/17 at 21:15 Mirtazapine (Remeron) 15 mg QHS PO Last administered on 11/04/17at 19:31; Start 11/01/17 at 21:29 Olanzapine (ZyPREXA ZYDIS) 2.5 mg PRN Q2HR PRN PO PSYCHOSIS; Start 11/03/17 at 08:00 Vitamin D (Vitamin D3) 50,000 unit WEEKLY PO Last administered on 11/04/17at 16: 39; Start 11/04/17 at 15:00 Fluvoxamine Maleate (Luvox) 75 mg DAILY PO ; Start 11/05/17 at 09:00 Active Scripts Active Reported Zofran (Ondansetron Hcl) 4 Mg Tablet 4 Mg PO PRN Q6HRS PRN Fluvoxamine Maleate 50 Mg Tablet 50 Mg PO DAILY Seroquel (Quetiapine Fumarate) 25 Mg Tablet 25 Mg PO TID@0900,1700,2100 Seroquel (Quetiapine Fumarate) 25 Mg Tablet 12.5 Mg PO DAILY 1300 Mirtazapine 15 Mg Tablet 15 Mg PO QHS Milk Of Magnesia (Magnesium Hydroxide) 2,400 Mg/10 Ml Oral.susp 2,400 Mg PO PRN QHS PRN Donepezil Hcl 10 Mg Tablet 10 Mg PO DAILY Tylenol (Acetaminophen) 325 Mg Tablet 650 Mg PO PRN Q6HRS PRN Maximum Acetaminophen dose is 4000 mg in 24 hours from all sources for adults Vitamin C (Ascorbic Acid) 500 Mg Tablet 500 Mg PO BID Calcium Carbonate 500 Mg Tablet 500 Mg PO PRN Q4HRS PRN Pantoprazole Sodium 40 Mg Tablet.dr 40 Mg PO DAILYAC Ferrous Gluconate 324 Mg Tablet 324 Mg PO BID Bisacodyl 5 Mg Tablet.dr 10 Mg PO PRN DAILY PRN I have reviewed the current psychotropics carefully including drug interactions. Risk benefit ratio favors no change other than as noted in my dictated progress note. Diagnosis: Problems: (1) Aggression (2) Major neurocognitive disorder, due to vascular disease, with behavioral disturbance, mild (3) Alzheimer's dementia (4) Behavior problem (5) Delusion REX ANGELES MD Nov 04, 2017 19:40
[2017-11-05 06:03] VITALS: BP 182/95
[2017-11-05] MEDS: PANTOPRAZOLE 40 MG TABLET. PO SCH (07:33)
[2017-11-05] MEDS: FERROUS GLUCONATE 324 MG TABLET PO SCH ×2 (07:33→19:23)
[2017-11-05] MEDS: QUEtiapine 25 MG TABLET. PO SCH ×4 (07:34→19:23)
[2017-11-05] MEDS: DONEPEZIL HCL 10 MG TABLET PO SCH (07:34)
[2017-11-05] MEDS: ASCORBIC ACID 500 MG TABLET PO SCH ×2 (07:34→19:23)
[2017-11-05 16:41] VITALS: BP 197/75
--- NOTE | 2017-11-05 19:16 | PN ---
DATE: 11/03/2017 This is a late entry of 11/03/2017, and covers the elements not covered in my initial note of 11/03/2017. SUBJECTIVE: I met with the patient in the evening of 11/03/2017. The patient slept 6-3/4 hours previous evening, has been doing better as compared to the previous day. She was threatening to another patient, refused her bedtime medications the previous night. We will start Zyprexa Zydis p.r.n. as well. REVIEW OF SYSTEMS: No CV, , pulmonary, eye system symptoms on review. Gait unsteady. MENTAL STATUS EXAM: Oriented to herself. Insight, judgment, recent and remote memory, attention, concentration, fund of knowledge poor, consistent with her diagnoses mentioned in my initial note. IMPRESSION: Major neurocognitive disorder, Alzheimer, vascular with delusion, depression, behavioral disturbance. PLAN: Continue psychotropics mentioned in my initial note. REX ANGELES MD DR: ADA/norah JOB#: [id number] / [id number]
[2017-11-05] MEDS: MIRTAZAPINE 15 MG TABLET PO SCH (19:23)
[2017-11-05] MEDS: ACETAMINOPHEN 325 MG TABLET PO PRN (20:24)
--- NOTE | 2017-11-05 22:06 | PDOC ---
Exam Note: Jarrod Note: Please also refer to the separate dictated note~for this date of service dictated separately.~Patient seen individually. Discussed the patient with Nursing staff reviewed the chart.~Reviewed interim history and current functioning. Reviewed vital signs,~Labs/ Radiology~and current medications noted below. Continue current treatment with the changes noted in the dictated addendum note Assessment: Vital Signs: Vital Signs Date Time Temp Pulse Resp B/P (MAP) Pulse Ox O2 Delivery O2 Flow Rate FiO2 11/05/17 16:41 97.6 91 18 197/75 (115) 96 11/05/17 06:03 Room Air I&O Intake and Output 11/05/17 07:00 Intake Total 840 ml Balance 840 ml Intake Oral 840 ml Current Medications: Meds: Current Medications Alprazolam (Xanax) 0.5 mg 1X ONCE PO Last administered on 11/01/17at 19:25; Start 11/01/17 at 19:30; Stop 11/01/17 at 19:31; Status DC Alprazolam (Xanax) 0.25 mg STK-MED ONCE .ROUTE ; Start 11/01/17 at 19:21; Stop 11/01/17 at 19:22; Status DC Alprazolam (Xanax) 0.25 mg STK-MED ONCE .ROUTE ; Start 11/01/17 at 19:23; Stop 11/01/17 at 19:24; Status DC Donepezil HCl (Aricept) 10 mg DAILY PO Last administered on 11/05/17at 07:34; Start 11/02/17 at 09:00 Mirtazapine (Remeron) 7.5 mg QHS PO ; Start 11/01/17 at 22:00; Stop 11/01/17 at 22:00; Status DC Quetiapine Fumarate (SEROquel) 12.5 mg DAILYWLUN PO Last administered on at 13:01; Start 11/02/17 at 12:00 Quetiapine Fumarate (SEROquel) 25 mg TID@0900,1700,2100 PO Last administered on 11/05/17at 19:23; Start 11/01/17 at 22:00 Fluvoxamine Maleate (Luvox) 50 mg DAILY PO Last administered on 11/04/17at 08:03 ; Start 11/02/17 at 09:00; Stop 11/04/17 at 18:17; Status DC Acetaminophen (Tylenol) 650 mg PRN Q6HRS PRN PO PAIN / TEMP Last administered on 11/05/17at 20:24; Start 11/01/17 at 21:15 Ascorbic Acid (Vitamin C) 500 mg BID PO Last administered on 11/05/17at 19:23; Start 11/02/17 at 09:00 Bisacodyl (Dulcolax Tab) 10 mg PRN DAILY PRN PO CONSTIPATION; Start 11/01/17 at 21:15 Calcium Carbonate/ Glycine (Tums) 500 mg PRN Q4HRS PRN PO DYSPEPSIA; Start 06/10 at 21:30 Ferrous Gluconate (Fergon) 324 mg BID PO Last administered on 11/05/17 19:23; Start 11/02/17 at 09:00 Pantoprazole Sodium (Protonix) 40 mg DAILYAC PO Last administered on 11/05/17at 07:33; Start 11/02/17 at 07:30 Magnesium Hydroxide (Milk Of Magnesia) 2,400 mg PRN QHS PRN PO CONSTIPATION Last administered on 11/05/17at 20:28; Start 11/01/17 at 21:30 Ondansetron HCl (Zofran Odt) 4 mg PRN Q6HRS PRN PO NAUSEA/VOMITING; Start 11/01 at 21:45 Multi-Ingredient Ointment (Analgesic [place]) 1 serg PRN QID PRN TP MUSCLE PAIN; Start 11/01/17 at 21:15 Al Hydroxide/Mg Hydroxide (Mylanta Plus Xs) 15 ml PRN AFTMEALHC PRN PO DYSPEPSIA; Start 11/01/17 at 21:15 Mirtazapine (Remeron) 15 mg QHS PO Last administered on 11/05/17 19:23; Start 11/01/17 at 21:29 Olanzapine (ZyPREXA ZYDIS) 2.5 mg PRN Q2HR PRN PO PSYCHOSIS; Start 11/03/17 at 08:00 Vitamin D (Vitamin D3) 50,000 unit WEEKLY PO Last administered on 11/04/17at 16: 39; Start 11/04/17 at 15:00 Fluvoxamine Maleate (Luvox) 75 mg DAILY PO Last administered on 11/05/17at 07:35 ; Start 11/05/17 at 09:00 Active Scripts Active Reported Zofran (Ondansetron Hcl) 4 Mg Tablet 4 Mg PO PRN Q6HRS PRN Fluvoxamine Maleate 50 Mg Tablet 50 Mg PO DAILY Seroquel (Quetiapine Fumarate) 25 Mg Tablet 25 Mg PO TID@0900,1700,2100 Seroquel (Quetiapine Fumarate) 25 Mg Tablet 12.5 Mg PO DAILY 1300 Mirtazapine 15 Mg Tablet 15 Mg PO QHS Milk Of Magnesia (Magnesium Hydroxide) 2,400 Mg/10 Ml Oral.susp 2,400 Mg PO PRN QHS PRN Donepezil Hcl 10 Mg Tablet 10 Mg PO DAILY Tylenol (Acetaminophen) 325 Mg Tablet 650 Mg PO PRN Q6HRS PRN Maximum Acetaminophen dose is 4000 mg in 24 hours from all sources for adults Vitamin C (Ascorbic Acid) 500 Mg Tablet 500 Mg PO BID Calcium Carbonate 500 Mg Tablet 500 Mg PO PRN Q4HRS PRN Pantoprazole Sodium 40 Mg Tablet.dr 40 Mg PO DAILYAC Ferrous Gluconate 324 Mg Tablet 324 Mg PO BID Bisacodyl 5 Mg Tablet.dr 10 Mg PO PRN DAILY PRN I have reviewed the current psychotropics carefully including drug interactions. Risk benefit ratio favors no change other than as noted in my dictated progress note. Diagnosis: Problems: (1) Aggression (2) Major neurocognitive disorder, due to vascular disease, with behavioral disturbance, mild (3) Alzheimer's dementia (4) Behavior problem (5) Delusion REX ANGELES MD Nov 05, 2017 22:06
[2017-11-06 06:06] VITALS: BP 170/85
[2017-11-06] MEDS: QUEtiapine 25 MG TABLET. PO SCH ×4 (08:27→20:13)
[2017-11-06] MEDS: ASCORBIC ACID 500 MG TABLET PO SCH ×2 (08:27→20:13)
[2017-11-06] MEDS: DONEPEZIL HCL 10 MG TABLET PO SCH (08:27)
[2017-11-06] MEDS: FERROUS GLUCONATE 324 MG TABLET PO SCH ×2 (08:27→20:13)
[2017-11-06] MEDS: PANTOPRAZOLE 40 MG TABLET. PO SCH (08:30)
[2017-11-06 15:46] VITALS: BP 135/89
--- NOTE | 2017-11-06 19:02 | PN ---
DATE: 11/04/2017 This is a late entry 11/04/2016, covers elements not covered in my initial note of 11/04/2017. SUBJECTIVE: I met with the patient in the evening of 11/04/2017. The patient remains confused, somewhat irritable at times, but generally very pleasant. The day before she was quite delusional, psychotic, calling the nursing staff as "whores and shut up." Today, she has been much better on 11/04/2017, taking her medications whole. REVIEW OF SYSTEMS: No CV, , pulmonary, eye, ENT system symptoms on review. Reliability poor. MENTAL STATUS EXAM: Oriented to herself. Insight, judgment, recent and remote memory, attention, concentration, fund of knowledge poor, consistent with her diagnoses. IMPRESSION: Major neurocognitive disorder, Alzheimer's, vascular with depression, delusion, behavioral disturbance. Rest unchanged. PLAN: Continue psychotropics mentioned in my initial note. Adjust further as clinically indicated. REX ANGELES MD DR: ADA/norah JOB#: [id number] / [id number]
[2017-11-06] MEDS: MIRTAZAPINE 15 MG TABLET PO SCH (20:13)
--- NOTE | 2017-11-06 21:04 | PDOC ---
Exam Note: Jarrod Note: Please also refer to the separate dictated note~for this date of service dictated separately.~Patient seen individually. Discussed the patient with Nursing staff reviewed the chart.~Reviewed interim history and current functioning. Reviewed vital signs,~Labs/ Radiology~and current medications noted below. Continue current treatment with the changes noted in the dictated addendum note Assessment: Vital Signs: Vital Signs Date Time Temp Pulse Resp B/P (MAP) Pulse Ox O2 Delivery O2 Flow Rate FiO2 11/06/17 15:46 97.7 70 20 135/89 (104) 97 11/05/17 06:03 Room Air I&O Intake and Output 11/06/17 07:00 Intake Total 840 ml Balance 840 ml Intake Oral 840 ml # Voids 1 Current Medications: Meds: Current Medications Alprazolam (Xanax) 0.5 mg 1X ONCE PO Last administered on 11/01/17at 19:25; Start 11/01/17 at 19:30; Stop 11/01/17 at 19:31; Status DC Alprazolam (Xanax) 0.25 mg STK-MED ONCE .ROUTE ; Start 11/01/17 at 19:21; Stop 11/01/17 at 19:22; Status DC Alprazolam (Xanax) 0.25 mg STK-MED ONCE .ROUTE ; Start 11/01/17 at 19:23; Stop 11/01/17 at 19:24; Status DC Donepezil HCl (Aricept) 10 mg DAILY PO Last administered on 11/06/17at 08:27; Start 11/02/17 at 09:00 Mirtazapine (Remeron) 7.5 mg QHS PO ; Start 11/01/17 at 22:00; Stop 11/01/17 at 22:00; Status DC Quetiapine Fumarate (SEROquel) 12.5 mg DAILYWLUN PO Last administered on at 13:27; Start 11/02/17 at 12:00 Quetiapine Fumarate (SEROquel) 25 mg TID@0900,1700,2100 PO Last administered on 11/06/17at 20:13; Start 11/01/17 at 22:00 Fluvoxamine Maleate (Luvox) 50 mg DAILY PO Last administered on 11/04/17at 08:03 ; Start 11/02/17 at 09:00; Stop 11/04/17 at 18:17; Status DC Acetaminophen (Tylenol) 650 mg PRN Q6HRS PRN PO PAIN / TEMP Last administered on 11/05/17at 20:24; Start 11/01/17 at 21:15 Ascorbic Acid (Vitamin C) 500 mg BID PO Last administered on 11/06/17at 20:13; Start 11/02/17 at 09:00 Bisacodyl (Dulcolax Tab) 10 mg PRN DAILY PRN PO CONSTIPATION; Start 11/01/17 at 21:15 Calcium Carbonate/ Glycine (Tums) 500 mg PRN Q4HRS PRN PO DYSPEPSIA; Start 06/10 at 21:30 Ferrous Gluconate (Fergon) 324 mg BID PO Last administered on 11/06/17at 20:13; Start 11/02/17 at 09:00 Pantoprazole Sodium (Protonix) 40 mg DAILYAC PO Last administered on 11/06/17at 08:30; Start 11/02/17 at 07:30 Magnesium Hydroxide (Milk Of Magnesia) 2,400 mg PRN QHS PRN PO CONSTIPATION Last administered on 11/05/17at 20:28; Start 11/01/17 at 21:30 Ondansetron HCl (Zofran Odt) 4 mg PRN Q6HRS PRN PO NAUSEA/VOMITING; Start 11/01 at 21:45 Multi-Ingredient Ointment (Analgesic [place]) 1 serg PRN QID PRN TP MUSCLE PAIN; Start 11/01/17 at 21:15 Al Hydroxide/Mg Hydroxide (Mylanta Plus Xs) 15 ml PRN AFTMEALHC PRN PO DYSPEPSIA; Start 11/01/17 at 21:15 Mirtazapine (Remeron) 15 mg QHS PO Last administered on 11/06/17at 20:13; Start 11/01/17 at 21:29 Olanzapine (ZyPREXA ZYDIS) 2.5 mg PRN Q2HR PRN PO PSYCHOSIS; Start 11/03/17 at 08:00 Vitamin D (Vitamin D3) 50,000 unit WEEKLY PO Last administered on 11/04/17at 16: 39; Start 11/04/17 at 15:00 Fluvoxamine Maleate (Luvox) 75 mg DAILY PO Last administered on 11/06/17at 08:27 ; Start 11/05/17 at 09:00; Stop 11/06/17 at 19:21; Status DC Fluvoxamine Maleate (Luvox) 100 mg DAILY PO ; Start 11/07/17 at 09:00 Active Scripts Active Reported Zofran (Ondansetron Hcl) 4 Mg Tablet 4 Mg PO PRN Q6HRS PRN Fluvoxamine Maleate 50 Mg Tablet 50 Mg PO DAILY Seroquel (Quetiapine Fumarate) 25 Mg Tablet 25 Mg PO TID@0900,1700,2100 Seroquel (Quetiapine Fumarate) 25 Mg Tablet 12.5 Mg PO DAILY 1300 Mirtazapine 15 Mg Tablet 15 Mg PO QHS Milk Of Magnesia (Magnesium Hydroxide) 2,400 Mg/10 Ml Oral.susp 2,400 Mg PO PRN QHS PRN Donepezil Hcl 10 Mg Tablet 10 Mg PO DAILY Tylenol (Acetaminophen) 325 Mg Tablet 650 Mg PO PRN Q6HRS PRN Maximum Acetaminophen dose is 4000 mg in 24 hours from all sources for adults Vitamin C (Ascorbic Acid) 500 Mg Tablet 500 Mg PO BID Calcium Carbonate 500 Mg Tablet 500 Mg PO PRN Q4HRS PRN Pantoprazole Sodium 40 Mg Tablet.dr 40 Mg PO DAILYAC Ferrous Gluconate 324 Mg Tablet 324 Mg PO BID Bisacodyl 5 Mg Tablet.dr 10 Mg PO PRN DAILY PRN I have reviewed the current psychotropics carefully including drug interactions. Risk benefit ratio favors no change other than as noted in my dictated progress note. Diagnosis: Problems: (1) Aggression (2) Major neurocognitive disorder, due to vascular disease, with behavioral disturbance, mild (3) Alzheimer's dementia (4) Behavior problem (5) Delusion REX ANGELES MD Nov 06, 2017 21:04
--- NOTE | 2017-11-07 04:19 | PN ---
DATE: 11/05/2017 This late entry 11/05/2017 covers elements not covered in my initial note 11/05/2017. I met with the patient evening of 11/05/2017. The patient has been wandering, hallucinating, talking to herself, pleasantly confused, smiling, laughing as I met with her, oblivious of her surroundings. She is compliant with medications and assessment and quite obsessive. REVIEW OF SYSTEMS: No CV, , pulmonary, eye, ENT system symptoms on review. Reliability poor. MENTAL STATUS EXAM: Oriented to herself. Insight, judgment, recent and remote memory, attention, concentration, fund of knowledge poor, consistent with her diagnosis mentioned in my initial note. IMPRESSION: Major neurocognitive disorder, Alzheimer, vascular with depression, delusion, behavioral disturbance. Rest unchanged. PLAN: Continue psychotropics mentioned in my initial note may need to increase Luvox. MAN Ifeanyi ANGELES MD DR: ADA/norah JOB#: [id number] / [id number]
[2017-11-07 07:01] VITALS: BP 166/69
[2017-11-07 09:12] LABS: BASO # 0.1 x10^3/uL (0.0-0.2); BASO % 1 % (0-3); EOS # 0.1 x10^3/uL (0.0-0.7); EOS % 2 % (0-3); HEMOGLOBIN 15.7 g/dL (12.0-15.5); LYMPH # 1.9 x10^3/uL (1.0-4.8); LYMPH % 26 % (24-48); MEAN CORPUSCULAR HEMOGLOBIN 30 pg (25-35); MEAN CORPUSCULAR HGB CONC 33 g/dL (31-37); MEAN CORPUSCULAR VOLUME 93 fL (79-100); MONO # 0.7 x10^3/uL (0.0-1.1); MONO % 9 % (0-9); NEUT # 4.5 x10^3uL (1.8-7.7); NEUT % 62 % (31-73); PLATELET COUNT 252 x10^3/uL (140-400); RED BLOOD COUNT 5.19 x10^6/uL (3.50-5.40); RED CELL DISTRIBUTION WIDTH 14.6 % (11.5-14.5); WHITE BLOOD COUNT 7.3 x10^3/uL (4.0-11.0)
[2017-11-07 09:25] LABS: ALBUMIN 3.8 g/dL (3.4-5.0); CALCIUM 9.6 mg/dL (8.5-10.1); CREATININE 0.9 mg/dL (0.6-1.0); GFR 61.4; MAGNESIUM 2.3 mg/dL (1.8-2.4); POTASSIUM 4.5 mmol/L (3.5-5.1); TOTAL BILIRUBIN 0.4 mg/dL (0.2-1.0); TOTAL PROTEIN 7.6 g/dL (6.4-8.2)
[2017-11-07] MEDS: QUEtiapine 25 MG TABLET. PO SCH ×4 (09:29→19:25)
[2017-11-07] MEDS: DONEPEZIL HCL 10 MG TABLET PO SCH (09:29)
[2017-11-07] MEDS: PANTOPRAZOLE 40 MG TABLET. PO SCH (09:30)
[2017-11-07] MEDS: ASCORBIC ACID 500 MG TABLET PO SCH ×2 (09:30→19:26)
[2017-11-07] MEDS: FERROUS GLUCONATE 324 MG TABLET PO SCH ×2 (09:30→19:26)
[2017-11-07 09:56] LABS: PLT ESTIMATE ADEQUATE (ADEQUATE)
[2017-11-07 15:41] VITALS: BP 119/80
[2017-11-07] MEDS: MIRTAZAPINE 15 MG TABLET PO SCH (19:26)
--- NOTE | 2017-11-07 20:53 | PDOC ---
Exam Note: Jarrod Note: Please also refer to the separate dictated note~for this date of service dictated separately.~Patient seen individually. Discussed the patient with Nursing staff reviewed the chart.~Reviewed interim history and current functioning. Reviewed vital signs,~Labs/ Radiology~and current medications noted below. Continue current treatment with the changes noted in the dictated addendum note Assessment: Vital Signs: Vital Signs Date Time Temp Pulse Resp B/P (MAP) Pulse Ox O2 Delivery O2 Flow Rate FiO2 11/07/17 15:41 97.7 94 18 119/80 (93) 99 11/05/17 06:03 Room Air I&O Intake and Output 11/07/17 07:00 Intake Total 1080 ml Balance 1080 ml Intake Oral 1080 ml # Voids 1 # Bowel Movements 2 Labs: Laboratory Tests Test 11/07/17 09:03 White Blood Count 7.3 x10^3/uL (4.0-11.0) Red Blood Count 5.19 x10^6/uL (3.50-5.40) Hemoglobin 15.7 g/dL (12.0-15.5) H Hematocrit 48.0 % (36.0-47.0) H Mean Corpuscular Volume 93 fL (79-100) Mean Corpuscular Hemoglobin 30 pg (25-35) Mean Corpuscular Hemoglobin Concent 33 g/dL (31-37) Red Cell Distribution Width 14.6 % (11.5-14.5) H Platelet Count 252 x10^3/uL (140-400) Neutrophils (%) (Auto) 62 % (31-73) Lymphocytes (%) (Auto) 26 % (24-48) Monocytes (%) (Auto) 9 % (0-9) Eosinophils (%) (Auto) 2 % (0-3) Basophils (%) (Auto) 1 % (0-3) Neutrophils # (Auto) 4.5 x10^3uL (1.8-7.7) Lymphocytes # (Auto) 1.9 x10^3/uL (1.0-4.8) Monocytes # (Auto) 0.7 x10^3/uL (0.0-1.1) Eosinophils # (Auto) 0.1 x10^3/uL (0.0-0.7) Basophils # (Auto) 0.1 x10^3/uL (0.0-0.2) Platelet Estimate Adequate (ADEQUATE) Sodium Level 140 mmol/L (136-145) Potassium Level 4.5 mmol/L (3.5-5.1) Chloride Level 101 mmol/L (98-107) Carbon Dioxide Level 29 mmol/L (21-32) Anion Gap 10 (6-14) Blood Urea Nitrogen 19 mg/dL (7-20) Creatinine 0.9 mg/dL (0.6-1.0) Estimated GFR (Cockcroft-Gault) 61.4 BUN/Creatinine Ratio 21 (6-20) H Glucose Level 90 mg/dL (70-99) Calcium Level 9.6 mg/dL (8.5-10.1) Magnesium Level 2.3 mg/dL (1.8-2.4) Total Bilirubin 0.4 mg/dL (0.2-1.0) Aspartate Amino Transferase (AST) 19 U/L (15-37) Alanine Aminotransferase (ALT) 29 U/L (14-59) Alkaline Phosphatase 135 U/L (46-116) H Total Protein 7.6 g/dL (6.4-8.2) Albumin 3.8 g/dL (3.4-5.0) Albumin/Globulin Ratio 1.0 (1.0-1.7) Current Medications: Meds: Current Medications Alprazolam (Xanax) 0.5 mg 1X ONCE PO Last administered on 11/01/17at 19:25; Start 11/01/17 at 19:30; Stop 11/01/17 at 19:31; Status DC Alprazolam (Xanax) 0.25 mg STK-MED ONCE .ROUTE ; Start 11/01/17 at 19:21; Stop 11/01/17 at 19:22; Status DC Alprazolam (Xanax) 0.25 mg STK-MED ONCE .ROUTE ; Start 11/01/17 at 19:23; Stop 11/01/17 at 19:24; Status DC Donepezil HCl (Aricept) 10 mg DAILY PO Last administered on 11/07/17at 09:29; Start 11/02/17 at 09:00 Mirtazapine (Remeron) 7.5 mg QHS PO ; Start 11/01/17 at 22:00; Stop 11/01/17 at 22:00; Status DC Quetiapine Fumarate (SEROquel) 12.5 mg DAILYWLUN PO Last administered on at 11:43; Start 11/02/17 at 12:00 Quetiapine Fumarate (SEROquel) 25 mg TID@0900,1700,2100 PO Last administered on 11/07/17at 19:25; Start 11/01/17 at 22:00 Fluvoxamine Maleate (Luvox) 50 mg DAILY PO Last administered on 11/04/17at 08:03 ; Start 11/02/17 at 09:00; Stop 11/04/17 at 18:17; Status DC Acetaminophen (Tylenol) 650 mg PRN Q6HRS PRN PO PAIN / TEMP Last administered on 11/05/17at 20:24; Start 11/01/17 at 21:15 Ascorbic Acid (Vitamin C) 500 mg BID PO Last administered on 11/07/17at 19:26; Start 11/02/17 at 09:00 Bisacodyl (Dulcolax Tab) 10 mg PRN DAILY PRN PO CONSTIPATION; Start 11/01/17 at 21:15 Calcium Carbonate/ Glycine (Tums) 500 mg PRN Q4HRS PRN PO DYSPEPSIA; Start 06/10 at 21:30 Ferrous Gluconate (Fergon) 324 mg BID PO Last administered on 11/07/17at 19:26; Start 11/02/17 at 09:00 Pantoprazole Sodium (Protonix) 40 mg DAILYAC PO Last administered on 11/07/17at 09:30; Start 11/02/17 at 07:30 Magnesium Hydroxide (Milk Of Magnesia) 2,400 mg PRN QHS PRN PO CONSTIPATION Last administered on 11/05/17at 20:28; Start 11/01/17 at 21:30 Ondansetron HCl (Zofran Odt) 4 mg PRN Q6HRS PRN PO NAUSEA/VOMITING; Start 11/01 at 21:45 Multi-Ingredient Ointment (Analgesic [place]) 1 serg PRN QID PRN TP MUSCLE PAIN; Start 11/01/17 at 21:15 Al Hydroxide/Mg Hydroxide (Mylanta Plus Xs) 15 ml PRN AFTMEALHC PRN PO DYSPEPSIA; Start 11/01/17 at 21:15 Mirtazapine (Remeron) 15 mg QHS PO Last administered on 11/07/17at 19:26; Start 11/01/17 at 21:29 Olanzapine (ZyPREXA ZYDIS) 2.5 mg PRN Q2HR PRN PO PSYCHOSIS; Start 11/03/17 at 08:00 Vitamin D (Vitamin D3) 50,000 unit WEEKLY PO Last administered on 11/04/17at 16: 39; Start 11/04/17 at 15:00 Fluvoxamine Maleate (Luvox) 75 mg DAILY PO Last administered on 11/06/17at 08:27 ; Start 11/05/17 at 09:00; Stop 11/06/17 at 19:21; Status DC Fluvoxamine Maleate (Luvox) 100 mg DAILY PO Last administered on 11/07/17at 09: 31; Start 11/07/17 at 09:00 Active Scripts Active Reported Zofran (Ondansetron Hcl) 4 Mg Tablet 4 Mg PO PRN Q6HRS PRN Fluvoxamine Maleate 50 Mg Tablet 50 Mg PO DAILY Seroquel (Quetiapine Fumarate) 25 Mg Tablet 25 Mg PO TID@0900,1700,2100 Seroquel (Quetiapine Fumarate) 25 Mg Tablet 12.5 Mg PO DAILY 1300 Mirtazapine 15 Mg Tablet 15 Mg PO QHS Milk Of Magnesia (Magnesium Hydroxide) 2,400 Mg/10 Ml Oral.susp 2,400 Mg PO PRN QHS PRN Donepezil Hcl 10 Mg Tablet 10 Mg PO DAILY Tylenol (Acetaminophen) 325 Mg Tablet 650 Mg PO PRN Q6HRS PRN Maximum Acetaminophen dose is 4000 mg in 24 hours from all sources for adults Vitamin C (Ascorbic Acid) 500 Mg Tablet 500 Mg PO BID Calcium Carbonate 500 Mg Tablet 500 Mg PO PRN Q4HRS PRN Pantoprazole Sodium 40 Mg Tablet. 40 Mg PO DAILYAC Ferrous Gluconate 324 Mg Tablet 324 Mg PO BID Bisacodyl 5 Mg Tablet.dr 10 Mg PO PRN DAILY PRN I have reviewed the current psychotropics carefully including drug interactions. Risk benefit ratio favors no change other than as noted in my dictated progress note. Diagnosis: Problems: (1) Aggression (2) Major neurocognitive disorder, due to vascular disease, with behavioral disturbance, mild (3) Alzheimer's dementia (4) Behavior problem (5) Delusion REX ANGELES MD Nov 07, 2017 20:53
--- NOTE | 2017-11-07 22:38 | PN ---
DATE: 11/06/2017 This late entry 11/06/2017 covers elements not covered in my initial note 11/06/2017. I met with the patient evening of 11/06/2017. SUBJECTIVE: The patient is compliant with her medications, gets a little agitated, threw some water at the nursing staff repeatedly stating "shit, shit," but then smiling pleasant as I met with her. She remains somewhat obsessive. REVIEW OF SYSTEMS: No CV, , pulmonary, eye, ENT system symptoms on review. Reliability poor. MENTAL STATUS EXAM: Oriented to herself. Insight, judgment, recent and remote memory, attention, concentration, fund of knowledge poor, consistent with her diagnosis mentioned in my initial note. IMPRESSION: Major neurocognitive disorder, Alzheimer, vascular with depression, delusion, behavioral disturbance. Rest unchanged. PLAN: Increase Luvox from 75 mg at bedtime to 100 mg a day. Continue rest of the psychotropics unchanged. REX ANGELES MD DR: ADA/norah JOB#: [id number] / [id number]
[2017-11-08 06:10] VITALS: BP 166/87
[2017-11-08] MEDS: FERROUS GLUCONATE 324 MG TABLET PO SCH (09:25)
[2017-11-08] MEDS: QUEtiapine 25 MG TABLET. PO SCH ×4 (09:25→20:09)
[2017-11-08] MEDS: PANTOPRAZOLE 40 MG TABLET. PO SCH (09:25)
[2017-11-08] MEDS: DONEPEZIL HCL 10 MG TABLET PO SCH (09:25)
[2017-11-08] MEDS: ASCORBIC ACID 500 MG TABLET PO SCH ×2 (09:25→20:09)
[2017-11-08 16:22] VITALS: BP 112/73
--- NOTE | 2017-11-08 18:52 | PN ---
DATE: 11/07/2017 This is a late entry, 11/07/2017, covers the elements not covered in my initial note, 11/07/2017. SUBJECTIVE: I met with the patient evening of 11/07/2017. The patient slept 6-1/2 hours previous evening. She seems to have some sundowning, gets agitated, was throwing things, but then redirects, and quickly forgets about what she did. She remains somewhat obsessive. REVIEW OF SYSTEMS: No CV, , pulmonary, eye, ENT system symptoms on review. Reliability poor. MENTAL STATUS EXAM: Oriented to herself. Insight, judgment, recent and remote memory, attention, concentration, fund of knowledge poor, consistent with her diagnosis as mentioned in my initial note. IMPRESSION: Major neurocognitive disorder, Alzheimer, vascular with depression, delusion, behavioral disturbance. Rest unchanged. PLAN: Continue psychotropics as mentioned in my initial note, may need to increase Seroquel in due course. We have just increased the Luvox as well for her obsessive-compulsive disorder symptoms. MAN Ifeanyi ANGELES MD DR: ADA/norah JOB#: [id number] / [id number]
[2017-11-08] MEDS: MIRTAZAPINE 15 MG TABLET PO SCH (20:09)
--- NOTE | 2017-11-08 21:12 | PDOC ---
Exam Note: Jarrod Note: Please also refer to the separate dictated note~for this date of service dictated separately.~Patient seen individually. Discussed the patient with Nursing staff reviewed the chart.~Reviewed interim history and current functioning. Reviewed vital signs,~Labs/ Radiology~and current medications noted below. Continue current treatment with the changes noted in the dictated addendum note Assessment: Vital Signs: Vital Signs Date Time Temp Pulse Resp B/P (MAP) Pulse Ox O2 Delivery O2 Flow Rate FiO2 11/08/17 16:22 98.0 88 20 112/73 (86) 97 11/05/17 06:03 Room Air I&O Intake and Output 11/08/17 07:00 Intake Total 730 ml Balance 730 ml Intake Oral 730 ml # Bowel Movements 1 Current Medications: Meds: Current Medications Alprazolam (Xanax) 0.5 mg 1X ONCE PO Last administered on 11/01/17at 19:25; Start 11/01/17 at 19:30; Stop 11/01/17 at 19:31; Status DC Alprazolam (Xanax) 0.25 mg STK-MED ONCE .ROUTE ; Start 11/01/17 at 19:21; Stop 11/01/17 at 19:22; Status DC Alprazolam (Xanax) 0.25 mg STK-MED ONCE .ROUTE ; Start 11/01/17 at 19:23; Stop 11/01/17 at 19:24; Status DC Donepezil HCl (Aricept) 10 mg DAILY PO Last administered on 11/08/17at 09:25; Start 11/02/17 at 09:00 Mirtazapine (Remeron) 7.5 mg QHS PO ; Start 11/01/17 at 22:00; Stop 11/01/17 at 22:00; Status DC Quetiapine Fumarate (SEROquel) 12.5 mg DAILYWLUN PO Last administered on at 12:08; Start 11/02/17 at 12:00 Quetiapine Fumarate (SEROquel) 25 mg TID@0900,1700,2100 PO Last administered on 11/08/17at 20:09; Start 11/01/17 at 22:00 Fluvoxamine Maleate (Luvox) 50 mg DAILY PO Last administered on 11/04/17at 08:03 ; Start 11/02/17 at 09:00; Stop 11/04/17 at 18:17; Status DC Acetaminophen (Tylenol) 650 mg PRN Q6HRS PRN PO PAIN / TEMP Last administered on 11/05/17at 20:24; Start 11/01/17 at 21:15 Ascorbic Acid (Vitamin C) 500 mg BID PO Last administered on 11/08/17at 20:09; Start 11/02/17 at 09:00 Bisacodyl (Dulcolax Tab) 10 mg PRN DAILY PRN PO CONSTIPATION; Start 11/01/17 at 21:15 Calcium Carbonate/ Glycine (Tums) 500 mg PRN Q4HRS PRN PO DYSPEPSIA; Start 06/10 at 21:30 Ferrous Gluconate (Fergon) 324 mg BID PO Last administered on 11/08/17at 09:25; Start 11/02/17 at 09:00; Stop 11/08/17 at 18:45; Status DC Pantoprazole Sodium (Protonix) 40 mg DAILYAC PO Last administered on 11/08/17at 09:25; Start 11/02/17 at 07:30 Magnesium Hydroxide (Milk Of Magnesia) 2,400 mg PRN QHS PRN PO CONSTIPATION Last administered on 11/05/17at 20:28; Start 11/01/17 at 21:30 Ondansetron HCl (Zofran Odt) 4 mg PRN Q6HRS PRN PO NAUSEA/VOMITING; Start 11/01 at 21:45 Multi-Ingredient Ointment (Analgesic [place]) 1 serg PRN QID PRN TP MUSCLE PAIN; Start 11/01/17 at 21:15 Al Hydroxide/Mg Hydroxide (Mylanta Plus Xs) 15 ml PRN AFTMEALHC PRN PO DYSPEPSIA; Start 11/01/17 at 21:15 Mirtazapine (Remeron) 15 mg QHS PO Last administered on 11/08/17at 20:09; Start 11/01/17 at 21:29 Olanzapine (ZyPREXA ZYDIS) 2.5 mg PRN Q2HR PRN PO PSYCHOSIS Last administered on 11/08/17at 16:54; Start 11/03/17 at 08:00 Vitamin D (Vitamin D3) 50,000 unit WEEKLY PO Last administered on 11/04/17at 16: 39; Start 11/04/17 at 15:00 Fluvoxamine Maleate (Luvox) 75 mg DAILY PO Last administered on 11/06/17at 08:27 ; Start 11/05/17 at 09:00; Stop 11/06/17 at 19:21; Status DC Fluvoxamine Maleate (Luvox) 100 mg DAILY PO Last administered on 11/08/17at 09: 25; Start 11/07/17 at 09:00 Buspirone HCl (Buspar) 5 mg BID@0900,1300 PO ; Start 11/09/17 at 09:00 Ferrous Sulfate (Feosol) 325 mg DAILYWBKFT PO ; Start 11/09/17 at 08:00 Active Scripts Active Reported Zofran (Ondansetron Hcl) 4 Mg Tablet 4 Mg PO PRN Q6HRS PRN Fluvoxamine Maleate 50 Mg Tablet 50 Mg PO DAILY Seroquel (Quetiapine Fumarate) 25 Mg Tablet 25 Mg PO TID@0900,1700,2100 Seroquel (Quetiapine Fumarate) 25 Mg Tablet 12.5 Mg PO DAILY 1300 Mirtazapine 15 Mg Tablet 15 Mg PO QHS Milk Of Magnesia (Magnesium Hydroxide) 2,400 Mg/10 Ml Oral.susp 2,400 Mg PO PRN QHS PRN Donepezil Hcl 10 Mg Tablet 10 Mg PO DAILY Tylenol (Acetaminophen) 325 Mg Tablet 650 Mg PO PRN Q6HRS PRN Maximum Acetaminophen dose is 4000 mg in 24 hours from all sources for adults Vitamin C (Ascorbic Acid) 500 Mg Tablet 500 Mg PO BID Calcium Carbonate 500 Mg Tablet 500 Mg PO PRN Q4HRS PRN Pantoprazole Sodium 40 Mg Tablet.dr 40 Mg PO DAILYAC Ferrous Gluconate 324 Mg Tablet 324 Mg PO BID Bisacodyl 5 Mg Tablet.dr 10 Mg PO PRN DAILY PRN I have reviewed the current psychotropics carefully including drug interactions. Risk benefit ratio favors no change other than as noted in my dictated progress note. Diagnosis: Problems: (1) Aggression (2) Major neurocognitive disorder, due to vascular disease, with behavioral disturbance, mild (3) Alzheimer's dementia (4) Behavior problem (5) Delusion REX ANGELES MD Nov 08, 2017 21:11
[2017-11-09 05:45] VITALS: BP 164/84
[2017-11-09] MEDS: PANTOPRAZOLE 40 MG TABLET. PO SCH (09:09)
[2017-11-09] MEDS: DONEPEZIL HCL 10 MG TABLET PO SCH (09:09)
[2017-11-09] MEDS: QUEtiapine 25 MG TABLET. PO SCH ×4 (09:09→19:43)
[2017-11-09] MEDS: ASCORBIC ACID 500 MG TABLET PO SCH ×2 (09:09→19:43)
[2017-11-09] MEDS: busPIRone 5 MG TABLET. PO SCH ×2 (09:10→12:33)
[2017-11-09] MEDS: FERROUS SULFATE 325 MG TABLET. PO SCH (09:12)
[2017-11-09] MEDS: ACETAMINOPHEN 325 MG TABLET PO PRN (14:34)
[2017-11-09 16:13] VITALS: BP 95/65
[2017-11-09] MEDS: MIRTAZAPINE 15 MG TABLET PO SCH (19:43)
--- NOTE | 2017-11-09 20:53 | PDOC ---
Exam Note: Jarrod Note: Please also refer to the separate dictated note~for this date of service dictated separately.~Patient seen individually. Discussed the patient with Nursing staff reviewed the chart.~Reviewed interim history and current functioning. Reviewed vital signs,~Labs/ Radiology~and current medications noted below. Continue current treatment with the changes noted in the dictated addendum note Assessment: Vital Signs: Vital Signs Date Time Temp Pulse Resp B/P (MAP) Pulse Ox O2 Delivery O2 Flow Rate FiO2 11/09/17 16:13 97.1 77 14 95/65 (75) 97 Room Air I&O Intake and Output 11/09/17 07:00 Intake Total 720 ml Balance 720 ml Intake Oral 720 ml # Bowel Movements 1 Current Medications: Meds: Current Medications Alprazolam (Xanax) 0.5 mg 1X ONCE PO Last administered on 11/01/17at 19:25; Start 11/01/17 at 19:30; Stop 11/01/17 at 19:31; Status DC Alprazolam (Xanax) 0.25 mg STK-MED ONCE .ROUTE ; Start 11/01/17 at 19:21; Stop 11/01/17 at 19:22; Status DC Alprazolam (Xanax) 0.25 mg STK-MED ONCE .ROUTE ; Start 11/01/17 at 19:23; Stop 11/01/17 at 19:24; Status DC Donepezil HCl (Aricept) 10 mg DAILY PO Last administered on 11/09/17at 09:09; Start 11/02/17 at 09:00 Mirtazapine (Remeron) 7.5 mg QHS PO ; Start 11/01/17 at 22:00; Stop 11/01/17 at 22:00; Status DC Quetiapine Fumarate (SEROquel) 12.5 mg DAILYWLUN PO Last administered on at 12:10; Start 11/02/17 at 12:00 Quetiapine Fumarate (SEROquel) 25 mg TID@0900,1700,2100 PO Last administered on 11/09/17at 19:43; Start 11/01/17 at 22:00 Fluvoxamine Maleate (Luvox) 50 mg DAILY PO Last administered on 11/04/17at 08:03 ; Start 11/02/17 at 09:00; Stop 11/04/17 at 18:17; Status DC Acetaminophen (Tylenol) 650 mg PRN Q6HRS PRN PO PAIN / TEMP Last administered on 11/09/17at 14:34; Start 11/01/17 at 21:15 Ascorbic Acid (Vitamin C) 500 mg BID PO Last administered on 11/09/17at 19:43; Start 11/02/17 at 09:00 Bisacodyl (Dulcolax Tab) 10 mg PRN DAILY PRN PO CONSTIPATION; Start 11/01/17 at 21:15 Calcium Carbonate/ Glycine (Tums) 500 mg PRN Q4HRS PRN PO DYSPEPSIA; Start 06/10 at 21:30 Ferrous Gluconate (Fergon) 324 mg BID PO Last administered on 11/08/17 09:25; Start 11/02/17 at 09:00; Stop 11/08/17 at 18:45; Status DC Pantoprazole Sodium (Protonix) 40 mg DAILYAC PO Last administered on 11/09/17at 09:09; Start 11/02/17 at 07:30 Magnesium Hydroxide (Milk Of Magnesia) 2,400 mg PRN QHS PRN PO CONSTIPATION Last administered on 11/05/17 20:28; Start 11/01/17 at 21:30 Ondansetron HCl (Zofran Odt) 4 mg PRN Q6HRS PRN PO NAUSEA/VOMITING; Start 11/01 at 21:45 Multi-Ingredient Ointment (Analgesic [place]) 1 serg PRN QID PRN TP MUSCLE PAIN; Start 11/01/17 at 21:15 Al Hydroxide/Mg Hydroxide (Mylanta Plus Xs) 15 ml PRN AFTMEALHC PRN PO DYSPEPSIA; Start 11/01/17 at 21:15 Mirtazapine (Remeron) 15 mg QHS PO Last administered on 11/09/17 19:43; Start 11/01/17 at 21:29 Olanzapine (ZyPREXA ZYDIS) 2.5 mg PRN Q2HR PRN PO PSYCHOSIS Last administered on 11/08/17at 16:54; Start 11/03/17 at 08:00 Vitamin D (Vitamin D3) 50,000 unit WEEKLY PO Last administered on 11/04/17at 16: 39; Start 11/04/17 at 15:00 Fluvoxamine Maleate (Luvox) 75 mg DAILY PO Last administered on 11/06/17at 08:27 ; Start 11/05/17 at 09:00; Stop 11/06/17 at 19:21; Status DC Fluvoxamine Maleate (Luvox) 100 mg DAILY PO Last administered on 11/09/17at 09: 09; Start 11/07/17 at 09:00 Buspirone HCl (Buspar) 5 mg BID@0900,1300 PO Last administered on 11/09/17at 12: 33; Start 11/09/17 at 09:00 Ferrous Sulfate (Feosol) 325 mg DAILYWBKFT PO Last administered on 11/09/17at 09 :12; Start 11/09/17 at 08:00 Active Scripts Active Reported Zofran (Ondansetron Hcl) 4 Mg Tablet 4 Mg PO PRN Q6HRS PRN Fluvoxamine Maleate 50 Mg Tablet 50 Mg PO DAILY Seroquel (Quetiapine Fumarate) 25 Mg Tablet 25 Mg PO TID@0900,1700,2100 Seroquel (Quetiapine Fumarate) 25 Mg Tablet 12.5 Mg PO DAILY 1300 Mirtazapine 15 Mg Tablet 15 Mg PO QHS Milk Of Magnesia (Magnesium Hydroxide) 2,400 Mg/10 Ml Oral.susp 2,400 Mg PO PRN QHS PRN Donepezil Hcl 10 Mg Tablet 10 Mg PO DAILY Tylenol (Acetaminophen) 325 Mg Tablet 650 Mg PO PRN Q6HRS PRN Maximum Acetaminophen dose is 4000 mg in 24 hours from all sources for adults Vitamin C (Ascorbic Acid) 500 Mg Tablet 500 Mg PO BID Calcium Carbonate 500 Mg Tablet 500 Mg PO PRN Q4HRS PRN Pantoprazole Sodium 40 Mg Tablet.dr 40 Mg PO DAILYAC Ferrous Gluconate 324 Mg Tablet 324 Mg PO BID Bisacodyl 5 Mg Tablet.dr 10 Mg PO PRN DAILY PRN I have reviewed the current psychotropics carefully including drug interactions. Risk benefit ratio favors no change other than as noted in my dictated progress note. Diagnosis: Problems: (1) Aggression (2) Major neurocognitive disorder, due to vascular disease, with behavioral disturbance, mild (3) Alzheimer's dementia (4) Behavior problem (5) Delusion REX ANGELES MD Nov 09, 2017 20:53
[2017-11-10 05:51] VITALS: BP 172/87
[2017-11-10] MEDS: DONEPEZIL HCL 10 MG TABLET PO SCH (08:17)
[2017-11-10] MEDS: busPIRone 5 MG TABLET. PO SCH ×2 (08:17→12:31)
[2017-11-10] MEDS: PANTOPRAZOLE 40 MG TABLET. PO SCH (08:17)
[2017-11-10] MEDS: FERROUS SULFATE 325 MG TABLET. PO SCH (08:17)
[2017-11-10] MEDS: QUEtiapine 25 MG TABLET. PO SCH ×4 (08:17→19:37)
[2017-11-10] MEDS: ASCORBIC ACID 500 MG TABLET PO SCH ×2 (08:17→19:38)
[2017-11-10 16:01] VITALS: BP 141/84
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
[2017-11-10] MEDS: MIRTAZAPINE 15 MG TABLET PO SCH (19:38)
--- NOTE | 2017-11-10 20:48 | PDOC ---
Exam Note: Jarrod Note: Please also refer to the separate dictated note~for this date of service dictated separately.~Patient seen individually. Discussed the patient with Nursing staff reviewed the chart.~Reviewed interim history and current functioning. Reviewed vital signs,~Labs/ Radiology~and current medications noted below. Continue current treatment with the changes noted in the dictated addendum note Assessment: Vital Signs: Vital Signs Date Time Temp Pulse Resp B/P (MAP) Pulse Ox O2 Delivery O2 Flow Rate FiO2 11/10/17 16:01 98.6 87 16 141/84 (103) 94 Room Air I&O Intake and Output 11/10/17 07:00 Intake Total 840 ml Balance 840 ml Intake Oral 840 ml Current Medications: Meds: Current Medications Alprazolam (Xanax) 0.5 mg 1X ONCE PO Last administered on 11/01/17at 19:25; Start 11/01/17 at 19:30; Stop 11/01/17 at 19:31; Status DC Alprazolam (Xanax) 0.25 mg STK-MED ONCE .ROUTE ; Start 11/01/17 at 19:21; Stop 11/01/17 at 19:22; Status DC Alprazolam (Xanax) 0.25 mg STK-MED ONCE .ROUTE ; Start 11/01/17 at 19:23; Stop 11/01/17 at 19:24; Status DC Donepezil HCl (Aricept) 10 mg DAILY PO Last administered on 11/10/17at 08:17; Start 11/02/17 at 09:00 Mirtazapine (Remeron) 7.5 mg QHS PO ; Start 11/01/17 at 22:00; Stop 11/01/17 at 22:00; Status DC Quetiapine Fumarate (SEROquel) 12.5 mg DAILYWLUN PO Last administered on at 12:30; Start 11/02/17 at 12:00 Quetiapine Fumarate (SEROquel) 25 mg TID@0900,1700,2100 PO Last administered on 11/10/17at 19:37; Start 11/01/17 at 22:00 Fluvoxamine Maleate (Luvox) 50 mg DAILY PO Last administered on 11/04/17at 08:03 ; Start 11/02/17 at 09:00; Stop 11/04/17 at 18:17; Status DC Acetaminophen (Tylenol) 650 mg PRN Q6HRS PRN PO PAIN / TEMP Last administered on 11/09/17at 14:34; Start 11/01/17 at 21:15 Ascorbic Acid (Vitamin C) 500 mg BID PO Last administered on 11/10/17 19:38; Start 11/02/17 at 09:00 Bisacodyl (Dulcolax Tab) 10 mg PRN DAILY PRN PO CONSTIPATION; Start 11/01/17 at 21:15 Calcium Carbonate/ Glycine (Tums) 500 mg PRN Q4HRS PRN PO DYSPEPSIA; Start 06/10 at 21:30 Ferrous Gluconate (Fergon) 324 mg BID PO Last administered on 11/08/17 09:25; Start 11/02/17 at 09:00; Stop 11/08/17 at 18:45; Status DC Pantoprazole Sodium (Protonix) 40 mg DAILYAC PO Last administered on 11/10/17at 08:17; Start 11/02/17 at 07:30 Magnesium Hydroxide (Milk Of Magnesia) 2,400 mg PRN QHS PRN PO CONSTIPATION Last administered on 11/05/17 20:28; Start 11/01/17 at 21:30 Ondansetron HCl (Zofran Odt) 4 mg PRN Q6HRS PRN PO NAUSEA/VOMITING; Start 11/01 at 21:45 Multi-Ingredient Ointment (Analgesic [place]) 1 serg PRN QID PRN TP MUSCLE PAIN; Start 11/01/17 at 21:15 Al Hydroxide/Mg Hydroxide (Mylanta Plus Xs) 15 ml PRN AFTMEALHC PRN PO DYSPEPSIA; Start 11/01/17 at 21:15 Mirtazapine (Remeron) 15 mg QHS PO Last administered on 11/10/17 19:38; Start 11/01/17 at 21:29 Olanzapine (ZyPREXA ZYDIS) 2.5 mg PRN Q2HR PRN PO PSYCHOSIS Last administered on 11/08/17 16:54; Start 11/03/17 at 08:00 Vitamin D (Vitamin D3) 50,000 unit WEEKLY PO Last administered on 11/04/17at 16: 39; Start 11/04/17 at 15:00 Fluvoxamine Maleate (Luvox) 75 mg DAILY PO Last administered on 11/06/17at 08:27 ; Start 11/05/17 at 09:00; Stop 11/06/17 at 19:21; Status DC Fluvoxamine Maleate (Luvox) 100 mg DAILY PO Last administered on 11/10/17at 08: 17; Start 11/07/17 at 09:00 Buspirone HCl (Buspar) 5 mg BID@0900,1300 PO Last administered on 11/10/17at 12: 31; Start 11/09/17 at 09:00 Ferrous Sulfate (Feosol) 325 mg DAILYWBKFT PO Last administered on 11/10/17at 08 :17; Start 11/09/17 at 08:00 Active Scripts Active Reported Zofran (Ondansetron Hcl) 4 Mg Tablet 4 Mg PO PRN Q6HRS PRN Fluvoxamine Maleate 50 Mg Tablet 50 Mg PO DAILY Seroquel (Quetiapine Fumarate) 25 Mg Tablet 25 Mg PO TID@0900,1700,2100 Seroquel (Quetiapine Fumarate) 25 Mg Tablet 12.5 Mg PO DAILY 1300 Mirtazapine 15 Mg Tablet 15 Mg PO QHS Milk Of Magnesia (Magnesium Hydroxide) 2,400 Mg/10 Ml Oral.susp 2,400 Mg PO PRN QHS PRN Donepezil Hcl 10 Mg Tablet 10 Mg PO DAILY Tylenol (Acetaminophen) 325 Mg Tablet 650 Mg PO PRN Q6HRS PRN Maximum Acetaminophen dose is 4000 mg in 24 hours from all sources for adults Vitamin C (Ascorbic Acid) 500 Mg Tablet 500 Mg PO BID Calcium Carbonate 500 Mg Tablet 500 Mg PO PRN Q4HRS PRN Pantoprazole Sodium 40 Mg Tablet.dr 40 Mg PO DAILYAC Ferrous Gluconate 324 Mg Tablet 324 Mg PO BID Bisacodyl 5 Mg Tablet.dr 10 Mg PO PRN DAILY PRN I have reviewed the current psychotropics carefully including drug interactions. Risk benefit ratio favors no change other than as noted in my dictated progress note. Diagnosis: Problems: (1) Aggression (2) Major neurocognitive disorder, due to vascular disease, with behavioral disturbance, mild (3) Alzheimer's dementia (4) Behavior problem (5) Delusion REX ANGELES MD Nov 10, 2017 20:48
--- NOTE | 2017-11-10 20:56 | PN ---
DATE: 11/09/2017 This is a late entry for 11/09/2017 covers elements not covered in my initial note of 11/09/2017. SUBJECTIVE: I met with the patient in the evening of 11/09/2017 staffed at a treatment team meeting with the entire team morning of 11/09/2017. The patient slept 7-1/4 hours. Appetite is fair. The day before was "rough" per nursing report. She did well at night, still labile, confused, restless, anxious, but 11/09/2017 was a better day for her. REVIEW OF SYSTEMS: No CV, , pulmonary, eye, ENT system symptoms on review. Reliability poor. MENTAL STATUS EXAM: Oriented to herself. Insight, judgment, recent and remote memory, attention, concentration, fund of knowledge poor, consistent with her diagnosis mentioned in my initial note. IMPRESSION: Major neurocognitive disorder, Alzheimer, vascular with depression, delusion, behavioral disturbance. Rest unchanged. PLAN: Continue psychotropics mentioned in my initial note. Increase BuSpar from 5 mg twice a day to 5 mg 3 times a day. MAN Ifeanyi ANGELES MD DR: ADA/norah JOB#: [id number] / [id number]
[2017-11-11 05:51] VITALS: BP 145/84
[2017-11-11] MEDS: ASCORBIC ACID 500 MG TABLET PO SCH ×2 (07:38→20:00)
[2017-11-11] MEDS: PANTOPRAZOLE 40 MG TABLET. PO SCH (07:38)
[2017-11-11] MEDS: busPIRone 5 MG TABLET. PO SCH ×2 (07:39→12:14)
[2017-11-11] MEDS: DONEPEZIL HCL 10 MG TABLET PO SCH (07:39)
[2017-11-11] MEDS: QUEtiapine 25 MG TABLET. PO SCH ×4 (07:39→20:00)
[2017-11-11] MEDS: FERROUS SULFATE 325 MG TABLET. PO SCH (07:39)
[2017-11-11] MEDS: CHOLECALCIFEROL (VITAMIN D3) 50,000 UNIT CAPSULE PO SCH (07:43)
[2017-11-11 16:09] VITALS: BP 131/78
[2017-11-11] MEDS: MIRTAZAPINE 15 MG TABLET PO SCH (20:00)
--- NOTE | 2017-11-11 22:30 | PDOC ---
Exam Note: Jarrod Note: Please also refer to the separate dictated note~for this date of service dictated separately.~Patient seen individually. Discussed the patient with Nursing staff reviewed the chart.~Reviewed interim history and current functioning. Reviewed vital signs,~Labs/ Radiology~and current medications noted below. Continue current treatment with the changes noted in the dictated addendum note Assessment: Vital Signs: Vital Signs Date Time Temp Pulse Resp B/P (MAP) Pulse Ox O2 Delivery O2 Flow Rate FiO2 11/11/17 16:09 97.5 75 18 131/78 (95) 98 Room Air I&O Intake and Output 11/11/17 07:00 Intake Total 480 ml Balance 480 ml Intake Oral 480 ml Current Medications: Meds: Current Medications Alprazolam (Xanax) 0.5 mg 1X ONCE PO Last administered on 11/01/17at 19:25; Start 11/01/17 at 19:30; Stop 11/01/17 at 19:31; Status DC Alprazolam (Xanax) 0.25 mg STK-MED ONCE .ROUTE ; Start 11/01/17 at 19:21; Stop 11/01/17 at 19:22; Status DC Alprazolam (Xanax) 0.25 mg STK-MED ONCE .ROUTE ; Start 11/01/17 at 19:23; Stop 11/01/17 at 19:24; Status DC Donepezil HCl (Aricept) 10 mg DAILY PO Last administered on 11/11/17at 07:39; Start 11/02/17 at 09:00 Mirtazapine (Remeron) 7.5 mg QHS PO ; Start 11/01/17 at 22:00; Stop 11/01/17 at 22:00; Status DC Quetiapine Fumarate (SEROquel) 12.5 mg DAILYWLUN PO Last administered on at 12:14; Start 11/02/17 at 12:00 Quetiapine Fumarate (SEROquel) 25 mg TID@0900,1700,2100 PO Last administered on 11/11/17at 20:00; Start 11/01/17 at 22:00 Fluvoxamine Maleate (Luvox) 50 mg DAILY PO Last administered on 11/04/17at 08:03 ; Start 11/02/17 at 09:00; Stop 11/04/17 at 18:17; Status DC Acetaminophen (Tylenol) 650 mg PRN Q6HRS PRN PO PAIN / TEMP Last administered on 11/09/17 14:34; Start 11/01/17 at 21:15 Ascorbic Acid (Vitamin C) 500 mg BID PO Last administered on 11/11/17 20:00; Start 11/02/17 at 09:00 Bisacodyl (Dulcolax Tab) 10 mg PRN DAILY PRN PO CONSTIPATION; Start 11/01/17 at 21:15 Calcium Carbonate/ Glycine (Tums) 500 mg PRN Q4HRS PRN PO DYSPEPSIA; Start 06/10 at 21:30 Ferrous Gluconate (Fergon) 324 mg BID PO Last administered on 11/08/17 09:25; Start 11/02/17 at 09:00; Stop 11/08/17 at 18:45; Status DC Pantoprazole Sodium (Protonix) 40 mg DAILYAC PO Last administered on 11/11/17at 07:38; Start 11/02/17 at 07:30 Magnesium Hydroxide (Milk Of Magnesia) 2,400 mg PRN QHS PRN PO CONSTIPATION Last administered on 11/05/17 20:28; Start 11/01/17 at 21:30 Ondansetron HCl (Zofran Odt) 4 mg PRN Q6HRS PRN PO NAUSEA/VOMITING; Start 11/01 at 21:45 Multi-Ingredient Ointment (Analgesic [place]) 1 serg PRN QID PRN TP MUSCLE PAIN; Start 11/01/17 at 21:15 Al Hydroxide/Mg Hydroxide (Mylanta Plus Xs) 15 ml PRN AFTMEALHC PRN PO DYSPEPSIA; Start 11/01/17 at 21:15 Mirtazapine (Remeron) 15 mg QHS PO Last administered on 11/11/17 20:00; Start 11/01/17 at 21:29 Olanzapine (ZyPREXA ZYDIS) 2.5 mg PRN Q2HR PRN PO PSYCHOSIS Last administered on 11/08/17 16:54; Start 11/03/17 at 08:00 Vitamin D (Vitamin D3) 50,000 unit WEEKLY PO Last administered on 11/11/17at 07: 43; Start 11/04/17 at 15:00 Fluvoxamine Maleate (Luvox) 75 mg DAILY PO Last administered on 11/06/17at 08:27 ; Start 11/05/17 at 09:00; Stop 11/06/17 at 19:21; Status DC Fluvoxamine Maleate (Luvox) 100 mg DAILY PO Last administered on 11/11/17at 07: 39; Start 11/07/17 at 09:00 Buspirone HCl (Buspar) 5 mg BID@0900,1300 PO Last administered on 11/11/17at 12: 14; Start 11/09/17 at 09:00 Ferrous Sulfate (Feosol) 325 mg DAILYWBKFT PO Last administered on 11/11/17at 07 :39; Start 11/09/17 at 08:00 Active Scripts Active Reported Zofran (Ondansetron Hcl) 4 Mg Tablet 4 Mg PO PRN Q6HRS PRN Fluvoxamine Maleate 50 Mg Tablet 50 Mg PO DAILY Seroquel (Quetiapine Fumarate) 25 Mg Tablet 25 Mg PO TID@0900,1700,2100 Seroquel (Quetiapine Fumarate) 25 Mg Tablet 12.5 Mg PO DAILY 1300 Mirtazapine 15 Mg Tablet 15 Mg PO QHS Milk Of Magnesia (Magnesium Hydroxide) 2,400 Mg/10 Ml Oral.susp 2,400 Mg PO PRN QHS PRN Donepezil Hcl 10 Mg Tablet 10 Mg PO DAILY Tylenol (Acetaminophen) 325 Mg Tablet 650 Mg PO PRN Q6HRS PRN Maximum Acetaminophen dose is 4000 mg in 24 hours from all sources for adults Vitamin C (Ascorbic Acid) 500 Mg Tablet 500 Mg PO BID Calcium Carbonate 500 Mg Tablet 500 Mg PO PRN Q4HRS PRN Pantoprazole Sodium 40 Mg Tablet.dr 40 Mg PO DAILYAC Ferrous Gluconate 324 Mg Tablet 324 Mg PO BID Bisacodyl 5 Mg Tablet.dr 10 Mg PO PRN DAILY PRN I have reviewed the current psychotropics carefully including drug interactions. Risk benefit ratio favors no change other than as noted in my dictated progress note. Diagnosis: Problems: (1) Aggression (2) Major neurocognitive disorder, due to vascular disease, with behavioral disturbance, mild (3) Alzheimer's dementia (4) Behavior problem (5) Delusion REX ANGELES MD Nov 11, 2017 22:30
[2017-11-12 06:11] VITALS: BP 139/79
[2017-11-12] MEDS: ASCORBIC ACID 500 MG TABLET PO SCH ×2 (08:04→21:17)
[2017-11-12] MEDS: busPIRone 5 MG TABLET. PO SCH ×2 (08:04→11:49)
[2017-11-12] MEDS: PANTOPRAZOLE 40 MG TABLET. PO SCH (08:04)
[2017-11-12] MEDS: FERROUS SULFATE 325 MG TABLET. PO SCH (08:04)
[2017-11-12] MEDS: DONEPEZIL HCL 10 MG TABLET PO SCH (08:04)
[2017-11-12] MEDS: QUEtiapine 25 MG TABLET. PO SCH ×4 (08:04→21:16)
--- NOTE | 2017-11-12 09:54 | PN ---
DATE: 11/10/2017 PSYCHIATRIC PROGRESS NOTE This is a late entry of 11/10/2017, covers elements not covered in my initial note 11/10/2017. SUBJECTIVE: I met with the patient the evening of 11/10/2017. The patient slept 8-1/2 hours previous evening, did well previous night. On 11/10/2017 she has been upset, anxious, looking for her parents, redirectable. REVIEW OF SYSTEMS: No CV, , pulmonary, eye, ENT system symptoms on review. Reliability poor. She is pleasant, smiling as I met with her, oblivious of her surroundings. MENTAL STATUS EXAM: Oriented to herself. Insight, judgment, recent and remote memory, attention, concentration, fund of knowledge poor, consistent with her diagnoses mentioned in my initial note. PLAN: Continue psychotropics mentioned in my initial note. Adjust as indicated clinically. MAN Ifeanyi ANGELES MD DR: ADA/norah JOB#: [id number] / [id number]
[2017-11-12 15:39] VITALS: BP 117/76
--- NOTE | 2017-11-12 20:50 | PDOC ---
Exam Note: Jarrod Note: Please also refer to the separate dictated note~for this date of service dictated separately.~Patient seen individually. Discussed the patient with Nursing staff reviewed the chart.~Reviewed interim history and current functioning. Reviewed vital signs,~Labs/ Radiology~and current medications noted below. Continue current treatment with the changes noted in the dictated addendum note Assessment: Vital Signs: Vital Signs Date Time Temp Pulse Resp B/P (MAP) Pulse Ox O2 Delivery O2 Flow Rate FiO2 11/12/17 15:39 98.3 87 17 117/76 (90) 94 11/12/17 06:11 Room Air I&O Intake and Output 11/12/17 07:00 Intake Total 785 ml Balance 785 ml Intake Oral 785 ml Current Medications: Meds: Current Medications Alprazolam (Xanax) 0.5 mg 1X ONCE PO Last administered on 11/01/17at 19:25; Start 11/01/17 at 19:30; Stop 11/01/17 at 19:31; Status DC Alprazolam (Xanax) 0.25 mg STK-MED ONCE .ROUTE ; Start 11/01/17 at 19:21; Stop 11/01/17 at 19:22; Status DC Alprazolam (Xanax) 0.25 mg STK-MED ONCE .ROUTE ; Start 11/01/17 at 19:23; Stop 11/01/17 at 19:24; Status DC Donepezil HCl (Aricept) 10 mg DAILY PO Last administered on 11/12/17at 08:04; Start 11/02/17 at 09:00 Mirtazapine (Remeron) 7.5 mg QHS PO ; Start 11/01/17 at 22:00; Stop 11/01/17 at 22:00; Status DC Quetiapine Fumarate (SEROquel) 12.5 mg DAILYWLUN PO Last administered on at 11:49; Start 11/02/17 at 12:00 Quetiapine Fumarate (SEROquel) 25 mg TID@0900,1700,2100 PO Last administered on 11/12/17at 16:53; Start 11/01/17 at 22:00 Fluvoxamine Maleate (Luvox) 50 mg DAILY PO Last administered on 11/04/17at 08:03 ; Start 11/02/17 at 09:00; Stop 11/04/17 at 18:17; Status DC Acetaminophen (Tylenol) 650 mg PRN Q6HRS PRN PO PAIN / TEMP Last administered on 11/09/17at 14:34; Start 11/01/17 at 21:15 Ascorbic Acid (Vitamin C) 500 mg BID PO Last administered on 11/12/17at 08:04; Start 11/02/17 at 09:00 Bisacodyl (Dulcolax Tab) 10 mg PRN DAILY PRN PO CONSTIPATION; Start 11/01/17 at 21:15 Calcium Carbonate/ Glycine (Tums) 500 mg PRN Q4HRS PRN PO DYSPEPSIA; Start 06/10 at 21:30 Ferrous Gluconate (Fergon) 324 mg BID PO Last administered on 11/08/17at 09:25; Start 11/02/17 at 09:00; Stop 11/08/17 at 18:45; Status DC Pantoprazole Sodium (Protonix) 40 mg DAILYAC PO Last administered on 11/12/17at 08:04; Start 11/02/17 at 07:30 Magnesium Hydroxide (Milk Of Magnesia) 2,400 mg PRN QHS PRN PO CONSTIPATION Last administered on 11/05/17at 20:28; Start 11/01/17 at 21:30 Ondansetron HCl (Zofran Odt) 4 mg PRN Q6HRS PRN PO NAUSEA/VOMITING; Start 11/01 at 21:45 Multi-Ingredient Ointment (Analgesic [place]) 1 serg PRN QID PRN TP MUSCLE PAIN; Start 11/01/17 at 21:15 Al Hydroxide/Mg Hydroxide (Mylanta Plus Xs) 15 ml PRN AFTMEALHC PRN PO DYSPEPSIA; Start 11/01/17 at 21:15 Mirtazapine (Remeron) 15 mg QHS PO Last administered on 11/11/17at 20:00; Start 11/01/17 at 21:29 Olanzapine (ZyPREXA ZYDIS) 2.5 mg PRN Q2HR PRN PO PSYCHOSIS Last administered on 11/08/17at 16:54; Start 11/03/17 at 08:00 Vitamin D (Vitamin D3) 50,000 unit WEEKLY PO Last administered on 11/11/17at 07: 43; Start 11/04/17 at 15:00 Fluvoxamine Maleate (Luvox) 75 mg DAILY PO Last administered on 11/06/17at 08:27 ; Start 11/05/17 at 09:00; Stop 11/06/17 at 19:21; Status DC Fluvoxamine Maleate (Luvox) 100 mg DAILY PO Last administered on 11/12/17at 08: 04; Start 11/07/17 at 09:00 Buspirone HCl (Buspar) 5 mg BID@0900,1300 PO Last administered on 11/12/17at 11: 49; Start 11/09/17 at 09:00 Ferrous Sulfate (Feosol) 325 mg DAILYWBKFT PO Last administered on 11/12/17at 08 :04; Start 11/09/17 at 08:00 Active Scripts Active Reported Zofran (Ondansetron Hcl) 4 Mg Tablet 4 Mg PO PRN Q6HRS PRN Fluvoxamine Maleate 50 Mg Tablet 50 Mg PO DAILY Seroquel (Quetiapine Fumarate) 25 Mg Tablet 25 Mg PO TID@0900,1700,2100 Seroquel (Quetiapine Fumarate) 25 Mg Tablet 12.5 Mg PO DAILY 1300 Mirtazapine 15 Mg Tablet 15 Mg PO QHS Milk Of Magnesia (Magnesium Hydroxide) 2,400 Mg/10 Ml Oral.susp 2,400 Mg PO PRN QHS PRN Donepezil Hcl 10 Mg Tablet 10 Mg PO DAILY Tylenol (Acetaminophen) 325 Mg Tablet 650 Mg PO PRN Q6HRS PRN Maximum Acetaminophen dose is 4000 mg in 24 hours from all sources for adults Vitamin C (Ascorbic Acid) 500 Mg Tablet 500 Mg PO BID Calcium Carbonate 500 Mg Tablet 500 Mg PO PRN Q4HRS PRN Pantoprazole Sodium 40 Mg Tablet.dr 40 Mg PO DAILYAC Ferrous Gluconate 324 Mg Tablet 324 Mg PO BID Bisacodyl 5 Mg Tablet.dr 10 Mg PO PRN DAILY PRN I have reviewed the current psychotropics carefully including drug interactions. Risk benefit ratio favors no change other than as noted in my dictated progress note. Diagnosis: Problems: (1) Aggression (2) Major neurocognitive disorder, due to vascular disease, with behavioral disturbance, mild (3) Alzheimer's dementia (4) Behavior problem (5) Delusion REX ANGELES MD Nov 12, 2017 20:50
[2017-11-12] MEDS: MIRTAZAPINE 15 MG TABLET PO SCH (21:16)
[2017-11-13 06:28] VITALS: BP 121/64
[2017-11-13] MEDS: PANTOPRAZOLE 40 MG TABLET. PO SCH (08:06)
[2017-11-13] MEDS: busPIRone 5 MG TABLET. PO SCH ×2 (08:06→14:12)
[2017-11-13] MEDS: FERROUS SULFATE 325 MG TABLET. PO SCH (08:06)
[2017-11-13] MEDS: ASCORBIC ACID 500 MG TABLET PO SCH ×2 (08:06→19:49)
[2017-11-13] MEDS: DONEPEZIL HCL 10 MG TABLET PO SCH (08:06)
[2017-11-13] MEDS: QUEtiapine 25 MG TABLET. PO SCH ×4 (08:06→19:49)
--- NOTE | 2017-11-13 09:37 | PN ---
DATE: 11/12/2017 PSYCHIATRIC PROGRESS NOTE This is a late entry for 11/12/2017 covers elements not covered in my initial note for 11/12/2017. I met with the patient in the afternoon of 11/12/2017. The patient remains confused, walking up and down the hallway with me. She is bent forward almost at about 45-60 degrees, looking for her father. REVIEW OF SYSTEMS: No CV, , pulmonary, eye, ENT system symptoms on review. Reliability poor. She is pleasant, verbal, smiling as I met with her. MENTAL STATUS EXAM: Oriented to herself. Insight, judgment, recent and remote memory, attention, concentration, fund of knowledge poor, consistent with her diagnosis mentioned in my initial ntoe. IMPRESSION: Unchanged from initial note. PLAN: Continue psychotropics mentioned in my initial note. MAN Ifeanyi ANGELES MD DR: ADA/norah JOB#: [id number] / [id number]
--- NOTE | 2017-11-13 15:47 | PN ---
DATE: 11/11/2017 This is a late entry, 11/11/2017, covers the elements not covered in my initial note, 11/11/2017. SUBJECTIVE: I met with the patient the evening of 11/11/2017. ____ bent forward almost at 60 degree angle. REVIEW OF SYSTEMS: No CV, , pulmonary, eye, ENT system symptoms with repeated that met with the treatment ____. MENTAL STATUS EXAM: Speech was in his psychotropics ____. MAN RogerYehuda ANGELES MD DR: ADA/norah JOB#: [id number] / [id number]
[2017-11-13 16:16] VITALS: BP 172/79
[2017-11-13] MEDS: MIRTAZAPINE 15 MG TABLET PO SCH (19:49)
--- NOTE | 2017-11-13 20:46 | PDOC ---
Exam Note: Jarrod Note: Please also refer to the separate dictated note~for this date of service dictated separately.~Patient seen individually. Discussed the patient with Nursing staff reviewed the chart.~Reviewed interim history and current functioning. Reviewed vital signs,~Labs/ Radiology~and current medications noted below. Continue current treatment with the changes noted in the dictated addendum note Assessment: Vital Signs: Vital Signs Date Time Temp Pulse Resp B/P (MAP) Pulse Ox O2 Delivery O2 Flow Rate FiO2 11/13/17 16:16 97.4 69 20 172/79 (110) 94 11/13/17 06:28 Room Air I&O Intake and Output 11/13/17 07:00 Intake Total 540 ml Balance 540 ml Intake Oral 540 ml # Voids 1 # Bowel Movements 1 Current Medications: Meds: Current Medications Alprazolam (Xanax) 0.5 mg 1X ONCE PO Last administered on 11/01/17at 19:25; Start 11/01/17 at 19:30; Stop 11/01/17 at 19:31; Status DC Alprazolam (Xanax) 0.25 mg STK-MED ONCE .ROUTE ; Start 11/01/17 at 19:21; Stop 11/01/17 at 19:22; Status DC Alprazolam (Xanax) 0.25 mg STK-MED ONCE .ROUTE ; Start 11/01/17 at 19:23; Stop 11/01/17 at 19:24; Status DC Donepezil HCl (Aricept) 10 mg DAILY PO Last administered on 11/13/17at 08:06; Start 11/02/17 at 09:00 Mirtazapine (Remeron) 7.5 mg QHS PO ; Start 11/01/17 at 22:00; Stop 11/01/17 at 22:00; Status DC Quetiapine Fumarate (SEROquel) 12.5 mg DAILYWLUN PO Last administered on at 14:12; Start 11/02/17 at 12:00 Quetiapine Fumarate (SEROquel) 25 mg TID@0900,1700,2100 PO Last administered on 11/13/17at 19:49; Start 11/01/17 at 22:00 Fluvoxamine Maleate (Luvox) 50 mg DAILY PO Last administered on 4/14/18at 08:03 ; Start 11/02/17 at 09:00; Stop 11/04/17 at 18:17; Status DC Acetaminophen (Tylenol) 650 mg PRN Q6HRS PRN PO PAIN / TEMP Last administered on 11/09/17at 14:34; Start 11/01/17 at 21:15 Ascorbic Acid (Vitamin C) 500 mg BID PO Last administered on 11/13/17 19:49; Start 11/02/17 at 09:00 Bisacodyl (Dulcolax Tab) 10 mg PRN DAILY PRN PO CONSTIPATION; Start 11/01/17 at 21:15 Calcium Carbonate/ Glycine (Tums) 500 mg PRN Q4HRS PRN PO DYSPEPSIA; Start 06/10 at 21:30 Ferrous Gluconate (Fergon) 324 mg BID PO Last administered on 11/08/17 09:25; Start 11/02/17 at 09:00; Stop 11/08/17 at 18:45; Status DC Pantoprazole Sodium (Protonix) 40 mg DAILYAC PO Last administered on 11/13/17at 08:06; Start 11/02/17 at 07:30 Magnesium Hydroxide (Milk Of Magnesia) 2,400 mg PRN QHS PRN PO CONSTIPATION Last administered on 11/05/17at 20:28; Start 11/01/17 at 21:30 Ondansetron HCl (Zofran Odt) 4 mg PRN Q6HRS PRN PO NAUSEA/VOMITING; Start 11/01 at 21:45 Multi-Ingredient Ointment (Analgesic [place]) 1 serg PRN QID PRN TP MUSCLE PAIN; Start 11/01/17 at 21:15 Al Hydroxide/Mg Hydroxide (Mylanta Plus Xs) 15 ml PRN AFTMEALHC PRN PO DYSPEPSIA; Start 11/01/17 at 21:15 Mirtazapine (Remeron) 15 mg QHS PO Last administered on 11/13/17 19:49; Start 11/01/17 at 21:29 Olanzapine (ZyPREXA ZYDIS) 2.5 mg PRN Q2HR PRN PO PSYCHOSIS Last administered on 11/13/17 19:38; Start 11/03/17 at 08:00 Vitamin D (Vitamin D3) 50,000 unit WEEKLY PO Last administered on 11/11/17at 07: 43; Start 11/04/17 at 15:00 Fluvoxamine Maleate (Luvox) 75 mg DAILY PO Last administered on 11/06/17at 08:27 ; Start 11/05/17 at 09:00; Stop 11/06/17 at 19:21; Status DC Fluvoxamine Maleate (Luvox) 100 mg DAILY PO Last administered on 11/13/17at 08: 06; Start 11/07/17 at 09:00 Buspirone HCl (Buspar) 5 mg BID@0900,1300 PO Last administered on 11/13/17at 14: 12; Start 11/09/17 at 09:00 Ferrous Sulfate (Feosol) 325 mg DAILYWBKFT PO Last administered on 11/13/17at 08 :06; Start 11/09/17 at 08:00 Active Scripts Active Reported Zofran (Ondansetron Hcl) 4 Mg Tablet 4 Mg PO PRN Q6HRS PRN Fluvoxamine Maleate 50 Mg Tablet 50 Mg PO DAILY Seroquel (Quetiapine Fumarate) 25 Mg Tablet 25 Mg PO TID@0900,1700,2100 Seroquel (Quetiapine Fumarate) 25 Mg Tablet 12.5 Mg PO DAILY 1300 Mirtazapine 15 Mg Tablet 15 Mg PO QHS Milk Of Magnesia (Magnesium Hydroxide) 2,400 Mg/10 Ml Oral.susp 2,400 Mg PO PRN QHS PRN Donepezil Hcl 10 Mg Tablet 10 Mg PO DAILY Tylenol (Acetaminophen) 325 Mg Tablet 650 Mg PO PRN Q6HRS PRN Maximum Acetaminophen dose is 4000 mg in 24 hours from all sources for adults Vitamin C (Ascorbic Acid) 500 Mg Tablet 500 Mg PO BID Calcium Carbonate 500 Mg Tablet 500 Mg PO PRN Q4HRS PRN Pantoprazole Sodium 40 Mg Tablet.dr 40 Mg PO DAILYAC Ferrous Gluconate 324 Mg Tablet 324 Mg PO BID Bisacodyl 5 Mg Tablet.dr 10 Mg PO PRN DAILY PRN I have reviewed the current psychotropics carefully including drug interactions. Risk benefit ratio favors no change other than as noted in my dictated progress note. Diagnosis: Problems: (1) Aggression (2) Major neurocognitive disorder, due to vascular disease, with behavioral disturbance, mild (3) Alzheimer's dementia (4) Behavior problem (5) Delusion BRIGDETTE,MAN M MD Nov 13, 2017 20:46
--- NOTE | 2017-11-14 01:07 | PN ---
DATE: 11/11/2017 This is a late entry for 11/11/2017 and covers elements not covered in my initial note of 11/11/2017. This note is being redictated as requested by hand iii cutter. She has had a good day, remains confused, constantly wandering in the hallways, bent forward 45-60 degrees. Otherwise, pleasant, verbal, and I walked with her up and down the hallway. REVIEW OF SYSTEMS: No CV, , pulmonary, eye, ENT system symptoms on review. Reliability poor. MENTAL STATUS EXAM: Oriented to herself. Insight, judgment, recent and remote memory, attention, concentration, fund of knowledge poor, consistent with her diagnosis as mentioned in my initial note. PLAN: Continue psychotropics as mentioned in my initial note. MAN Ifeanyi ANGELES MD DR: ADA/norah JOB#: [id number] / [id number]
--- NOTE | 2017-11-14 01:09 | PN ---
DATE: 11/12/2017 This is a late entry for 11/12/2017 and covers elements not covered in my initial note of 11/12/2017. SUBJECTIVE: I met with the patient in the afternoon and I am re-dictating this note as requested by psychological operations. The patient has been irritable, telling staff, "Don't touch me." Staff had to give her a shower, she was resistive, better after lunch when she received Seroquel and BuSpar. Pleasant with me individually, shaking my hand, looking for her father. She walks bent forward 45-60 degrees. REVIEW OF SYSTEMS: No CV, , pulmonary, eye, ENT system symptoms on review. Reliability poor. MENTAL STATUS EXAM: Oriented to herself. Insight, judgment, recent and remote memory, attention, concentration, fund of knowledge poor, consistent with her diagnosis as mentioned in my initial note. PLAN: Continue current psychotropics. MAN Ifeanyi ANGELES MD DR: ADA/norah JOB#: [id number] / [id number]
[2017-11-14 06:25] VITALS: BP 152/84
[2017-11-14] MEDS: PANTOPRAZOLE 40 MG TABLET. PO SCH ×2 (07:30→08:55)
[2017-11-14] MEDS: FERROUS SULFATE 325 MG TABLET. PO SCH ×2 (08:00→08:54)
[2017-11-14] MEDS: DONEPEZIL HCL 10 MG TABLET PO SCH (08:53)
[2017-11-14] MEDS: ASCORBIC ACID 500 MG TABLET PO SCH ×2 (08:53→20:41)
[2017-11-14] MEDS: busPIRone 5 MG TABLET. PO SCH ×2 (08:54→12:39)
[2017-11-14] MEDS: QUEtiapine 25 MG TABLET. PO SCH ×3 (08:54→17:16)
[2017-11-14 09:29] LABS: BASO # 0.1 x10^3/uL (0.0-0.2); BASO % 1 % (0-3); EOS # 0.2 x10^3/uL (0.0-0.7); EOS % 2 % (0-3); HEMATOCRIT 44.4 % (36.0-47.0); LYMPH # 3.5 x10^3/uL (1.0-4.8); LYMPH % 35 % (24-48); MEAN CORPUSCULAR HEMOGLOBIN 31 pg (25-35); MEAN CORPUSCULAR HGB CONC 34 g/dL (31-37); MEAN CORPUSCULAR VOLUME 91 fL (79-100); MONO % 10 % (0-9); NEUT # 5.4 x10^3uL (1.8-7.7); NEUT % 53 % (31-73); PLATELET COUNT 272 x10^3/uL (140-400); RED BLOOD COUNT 4.87 x10^6/uL (3.50-5.40); RED CELL DISTRIBUTION WIDTH 14.3 % (11.5-14.5); WHITE BLOOD COUNT 10.2 x10^3/uL (4.0-11.0)
[2017-11-14 09:43] LABS: ALBUMIN 3.9 g/dL (3.4-5.0); ALBUMIN/GLOBULIN RATIO 1.1 (1.0-1.7); CALCIUM 9.6 mg/dL (8.5-10.1); GFR 54.3; MAGNESIUM 2.2 mg/dL (1.8-2.4); POTASSIUM 4.2 mmol/L (3.5-5.1); TOTAL BILIRUBIN 0.5 mg/dL (0.2-1.0); TOTAL PROTEIN 7.4 g/dL (6.4-8.2)
[2017-11-14 12:53] LABS: BILIRUBIN,URINE NEG (NEG); CLARITY,URINE CLEAR; COLOR,URINE YELLOW; GLUCOSE,URINE NEG (NEG)
[2017-11-14 12:54] LABS: BACTERIA,URINE FEW /HPF (0-FEW); HYALINE CASTS, URINE OCC /HPF; NITRITE,URINE NEG (NEG); RBC,URINE OCC /HPF (0-2); SQUAMOUS EPITHELIAL CELL,UR FEW /LPF; UROBILINOGEN,URINE 0.2 mg/dL (0.2 mg/dL)
[2017-11-14] MEDS: MIRTAZAPINE 15 MG TABLET PO SCH (20:41)
--- NOTE | 2017-11-14 20:45 | PDOC ---
Exam Note: Jarrod Note: Please also refer to the separate dictated note~for this date of service dictated separately.~Patient seen individually. Discussed the patient with Nursing staff reviewed the chart.~Reviewed interim history and current functioning. Reviewed vital signs,~Labs/ Radiology~and current medications noted below. Continue current treatment with the changes noted in the dictated addendum note Assessment: Vital Signs: Vital Signs Date Time Temp Pulse Resp B/P (MAP) Pulse Ox O2 Delivery O2 Flow Rate FiO2 11/14/17 06:25 97.8 79 20 152/84 (106) 96 11/13/17 06:28 Room Air I&O Intake and Output 11/14/17 07:00 Intake Total 460 ml Balance 460 ml Intake Oral 460 ml # Voids 2 Labs: Laboratory Tests Test 11/14/17 09:06 11/14/17 12:20 White Blood Count 10.2 x10^3/uL (4.0-11.0) Red Blood Count 4.87 x10^6/uL (3.50-5.40) Hemoglobin 15.0 g/dL (12.0-15.5) Hematocrit 44.4 % (36.0-47.0) Mean Corpuscular Volume 91 fL (79-100) Mean Corpuscular Hemoglobin 31 pg (25-35) Mean Corpuscular Hemoglobin Concent 34 g/dL (31-37) Red Cell Distribution Width 14.3 % (11.5-14.5) Platelet Count 272 x10^3/uL (140-400) Neutrophils (%) (Auto) 53 % (31-73) Lymphocytes (%) (Auto) 35 % (24-48) Monocytes (%) (Auto) 10 % (0-9) H Eosinophils (%) (Auto) 2 % (0-3) Basophils (%) (Auto) 1 % (0-3) Neutrophils # (Auto) 5.4 x10^3uL (1.8-7.7) Lymphocytes # (Auto) 3.5 x10^3/uL (1.0-4.8) Monocytes # (Auto) 1.0 x10^3/uL (0.0-1.1) Eosinophils # (Auto) 0.2 x10^3/uL (0.0-0.7) Basophils # (Auto) 0.1 x10^3/uL (0.0-0.2) Sodium Level 146 mmol/L (136-145) H Potassium Level 4.2 mmol/L (3.5-5.1) Chloride Level 109 mmol/L (98-107) H Carbon Dioxide Level 27 mmol/L (21-32) Anion Gap 10 (6-14) Blood Urea Nitrogen 22 mg/dL (7-20) H Creatinine 1.0 mg/dL (0.6-1.0) Estimated GFR (Cockcroft-Gault) 54.3 BUN/Creatinine Ratio 22 (6-20) H Glucose Level 99 mg/dL (70-99) Calcium Level 9.6 mg/dL (8.5-10.1) Magnesium Level 2.2 mg/dL (1.8-2.4) Total Bilirubin 0.5 mg/dL (0.2-1.0) Aspartate Amino Transferase (AST) 22 U/L (15-37) Alanine Aminotransferase (ALT) 38 U/L (14-59) Alkaline Phosphatase 130 U/L (46-116) H Total Protein 7.4 g/dL (6.4-8.2) Albumin 3.9 g/dL (3.4-5.0) Albumin/Globulin Ratio 1.1 (1.0-1.7) Urine Collection Type Unknown Urine Color Yellow Urine Clarity Clear Urine pH 5.0 Urine Specific Cornelius >=1.030 Urine Protein Neg (NEG-TRACE) Urine Glucose (UA) Neg mg/dL (NEG) Urine Ketones (Stick) Neg mg/dL (NEG) Urine Blood Neg (NEG) Urine Nitrite Neg (NEG) Urine Bilirubin Neg (NEG) Urine Urobilinogen Dipstick 0.2 mg/dL (0.2 mg/dL) Urine Leukocyte Esterase Neg (NEG) Urine RBC Occ /HPF (0-2) Urine WBC 1-4 /HPF (0-4) Urine Squamous Epithelial Cells Few /LPF Urine Bacteria Few /HPF (0-FEW) Urine Hyaline Casts Occ /HPF Urine Mucus Slight /LPF Current Medications: Meds: Current Medications Alprazolam (Xanax) 0.5 mg 1X ONCE PO Last administered on 11/01/17at 19:25; Start 11/01/17 at 19:30; Stop 11/01/17 at 19:31; Status DC Alprazolam (Xanax) 0.25 mg STK-MED ONCE .ROUTE ; Start 11/01/17 at 19:21; Stop 11/01/17 at 19:22; Status DC Alprazolam (Xanax) 0.25 mg STK-MED ONCE .ROUTE ; Start 11/01/17 at 19:23; Stop 11/01/17 at 19:24; Status DC Donepezil HCl (Aricept) 10 mg DAILY PO Last administered on 11/14/17at 08:53; Start 11/02/17 at 09:00 Mirtazapine (Remeron) 7.5 mg QHS PO ; Start 11/01/17 at 22:00; Stop 11/01/17 at 22:00; Status DC Quetiapine Fumarate (SEROquel) 12.5 mg DAILYWLUN PO Last administered on at 12:39; Start 11/02/17 at 12:00; Stop 11/14/17 at 19:24; Status DC Quetiapine Fumarate (SEROquel) 25 mg TID@0900,1700,2100 PO Last administered on 11/14/17at 17:16; Start 11/01/17 at 22:00; Stop 11/14/17 at 19:24; Status DC Fluvoxamine Maleate (Luvox) 50 mg DAILY PO Last administered on 11/04/17at 08:03 ; Start 11/02/17 at 09:00; Stop 11/04/17 at 18:17; Status DC Acetaminophen (Tylenol) 650 mg PRN Q6HRS PRN PO PAIN / TEMP Last administered on 11/09/17at 14:34; Start 11/01/17 at 21:15 Ascorbic Acid (Vitamin C) 500 mg BID PO Last administered on 11/14/17at 20:41; Start 11/02/17 at 09:00 Bisacodyl (Dulcolax Tab) 10 mg PRN DAILY PRN PO CONSTIPATION; Start 11/01/17 at 21:15 Calcium Carbonate/ Glycine (Tums) 500 mg PRN Q4HRS PRN PO DYSPEPSIA; Start 06/10 at 21:30 Ferrous Gluconate (Fergon) 324 mg BID PO Last administered on 11/08/17at 09:25; Start 11/02/17 at 09:00; Stop 11/08/17 at 18:45; Status DC Pantoprazole Sodium (Protonix) 40 mg DAILYAC PO Last administered on 11/13/17at 08:06; Start 11/02/17 at 07:30 Magnesium Hydroxide (Milk Of Magnesia) 2,400 mg PRN QHS PRN PO CONSTIPATION Last administered on 11/05/17at 20:28; Start 11/01/17 at 21:30 Ondansetron HCl (Zofran Odt) 4 mg PRN Q6HRS PRN PO NAUSEA/VOMITING; Start 11/01 at 21:45 Multi-Ingredient Ointment (Analgesic [place]) 1 serg PRN QID PRN TP MUSCLE PAIN; Start 11/01/17 at 21:15 Al Hydroxide/Mg Hydroxide (Mylanta Plus Xs) 15 ml PRN AFTMEALHC PRN PO DYSPEPSIA; Start 11/01/17 at 21:15 Mirtazapine (Remeron) 15 mg QHS PO Last administered on 11/14/17at 20:41; Start 11/01/17 at 21:29 Olanzapine (ZyPREXA ZYDIS) 2.5 mg PRN Q2HR PRN PO PSYCHOSIS Last administered on 11/14/17 12:40; Start 11/03/17 at 08:00 Vitamin D (Vitamin D3) 50,000 unit WEEKLY PO Last administered on 11/11/17at 07: 43; Start 11/04/17 at 15:00 Fluvoxamine Maleate (Luvox) 75 mg DAILY PO Last administered on 11/06/17at 08:27 ; Start 11/05/17 at 09:00; Stop 11/06/17 at 19:21; Status DC Fluvoxamine Maleate (Luvox) 100 mg DAILY PO Last administered on 11/14/17at 08: 53; Start 11/07/17 at 09:00 Buspirone HCl (Buspar) 5 mg BID@0900,1300 PO Last administered on 11/14/17at 12: 39; Start 11/09/17 at 09:00 Ferrous Sulfate (Feosol) 325 mg DAILYWBKFT PO Last administered on 11/13/17at 08 :06; Start 11/09/17 at 08:00 Quetiapine Fumarate (SEROquel) 25 mg TID@0900,1300,1700 PO ; Start 11/15/17 at 09:00 Active Scripts Active Reported Zofran (Ondansetron Hcl) 4 Mg Tablet 4 Mg PO PRN Q6HRS PRN Fluvoxamine Maleate 50 Mg Tablet 50 Mg PO DAILY Seroquel (Quetiapine Fumarate) 25 Mg Tablet 25 Mg PO TID@0900,1700,2100 Seroquel (Quetiapine Fumarate) 25 Mg Tablet 12.5 Mg PO DAILY 1300 Mirtazapine 15 Mg Tablet 15 Mg PO QHS Milk Of Magnesia (Magnesium Hydroxide) 2,400 Mg/10 Ml Oral.susp 2,400 Mg PO PRN QHS PRN Donepezil Hcl 10 Mg Tablet 10 Mg PO DAILY Tylenol (Acetaminophen) 325 Mg Tablet 650 Mg PO PRN Q6HRS PRN Maximum Acetaminophen dose is 4000 mg in 24 hours from all sources for adults Vitamin C (Ascorbic Acid) 500 Mg Tablet 500 Mg PO BID Calcium Carbonate 500 Mg Tablet 500 Mg PO PRN Q4HRS PRN Pantoprazole Sodium 40 Mg Tablet.dr 40 Mg PO DAILYAC Ferrous Gluconate 324 Mg Tablet 324 Mg PO BID Bisacodyl 5 Mg Tablet.dr 10 Mg PO PRN DAILY PRN I have reviewed the current psychotropics carefully including drug interactions. Risk benefit ratio favors no change other than as noted in my dictated progress note. Diagnosis: Problems: (1) Aggression (2) Major neurocognitive disorder, due to vascular disease, with behavioral disturbance, mild (3) Alzheimer's dementia (4) Behavior problem (5) Delusion REX ANGELES MD Nov 14, 2017 20:45
--- NOTE | 2017-11-14 22:51 | PN ---
DATE: 11/13/2017 This is a late entry 11/13/2016, covers elements not covered in my initial note 11/13/2017. SUBJECTIVE: I met the patient evening of 11/13/2017. The patient slept 6 hours previous evening. She was calm the morning, then very upset, anxious, restless, irritable, labile, spitting in the hallway, difficult to redirect. Nursing staff had to place her in the West hallway to remove her from stimuli from the rest of the unit. She wet on herself in another patient's room, oblivious of what she is doing. No CV, , pulmonary, eye system symptoms on review. Reliability poor. She ambulates, bent forward significantly. MENTAL STATUS EXAM: Oriented to herself. Insight, judgment, recent and remote memory, attention, concentration, fund of knowledge poor, consistent with her diagnosis. As I met with her, she was quite upset that everyone was in her home. I reoriented or at least attempted to re-orient that she was in the hospital and she said "I did not know that." We addressed this and she appeared a little more relaxed, though she did not entirely believe in me. LABORATORY DATA: Reviewed. IMPRESSION: Major neurocognitive disorder, Alzheimer, vascular with depression, delusion, behavioral disturbance. Rest unchanged. PLAN: Continue psychotropics mentioned in my initial note. REX ANGELES MD DR: ADA/norah JOB#: [id number] / [id number]
[2017-11-15 06:27] VITALS: BP 155/74
[2017-11-15] MEDS: FERROUS SULFATE 325 MG TABLET. PO SCH (08:37)
[2017-11-15] MEDS: busPIRone 5 MG TABLET. PO SCH ×2 (08:37→12:12)
[2017-11-15] MEDS: PANTOPRAZOLE 40 MG TABLET. PO SCH (08:37)
[2017-11-15] MEDS: ASCORBIC ACID 500 MG TABLET PO SCH ×2 (08:37→19:53)
[2017-11-15] MEDS: DONEPEZIL HCL 10 MG TABLET PO SCH (08:37)
[2017-11-15] MEDS ORDERED: QUEtiapine 25 MG TABLET. PO SCH (09:00)
[2017-11-15] MEDS: QUEtiapine 25 MG TABLET. PO SCH ×3 (12:13→19:55)
[2017-11-15 15:43] VITALS: BP 112/61
[2017-11-15] MEDS: MIRTAZAPINE 15 MG TABLET PO SCH (19:53)
--- NOTE | 2017-11-15 20:22 | PDOC ---
Exam Note: Jarrod Note: Please also refer to the separate dictated note~for this date of service dictated separately.~Patient seen individually. Discussed the patient with Nursing staff reviewed the chart.~Reviewed interim history and current functioning. Reviewed vital signs,~Labs/ Radiology~and current medications noted below. Continue current treatment with the changes noted in the dictated addendum note Assessment: Vital Signs: Vital Signs Date Time Temp Pulse Resp B/P (MAP) Pulse Ox O2 Delivery O2 Flow Rate FiO2 11/15/17 15:43 98.1 62 18 112/61 (78) 96 11/15/17 06:27 Room Air I&O Intake and Output 11/15/17 07:00 Intake Total 840 ml Balance 840 ml Intake Oral 840 ml # Voids 1 # Bowel Movements 1 Current Medications: Meds: Current Medications Alprazolam (Xanax) 0.5 mg 1X ONCE PO Last administered on 11/01/17at 19:25; Start 11/01/17 at 19:30; Stop 11/01/17 at 19:31; Status DC Alprazolam (Xanax) 0.25 mg STK-MED ONCE .ROUTE ; Start 11/01/17 at 19:21; Stop 11/01/17 at 19:22; Status DC Alprazolam (Xanax) 0.25 mg STK-MED ONCE .ROUTE ; Start 11/01/17 at 19:23; Stop 11/01/17 at 19:24; Status DC Donepezil HCl (Aricept) 10 mg DAILY PO Last administered on 11/15/17at 08:37; Start 11/02/17 at 09:00 Mirtazapine (Remeron) 7.5 mg QHS PO ; Start 11/01/17 at 22:00; Stop 11/01/17 at 22:00; Status DC Quetiapine Fumarate (SEROquel) 12.5 mg DAILYWLUN PO Last administered on at 12:39; Start 11/02/17 at 12:00; Stop 11/14/17 at 19:24; Status DC Quetiapine Fumarate (SEROquel) 25 mg TID@0900,1700,2100 PO Last administered on 11/14/17at 17:16; Start 11/01/17 at 22:00; Stop 11/14/17 at 19:24; Status DC Fluvoxamine Maleate (Luvox) 50 mg DAILY PO Last administered on 11/04/17 08:03 ; Start 11/02/17 at 09:00; Stop 11/04/17 at 18:17; Status DC Acetaminophen (Tylenol) 650 mg PRN Q6HRS PRN PO PAIN / TEMP Last administered on 11/09/17at 14:34; Start 11/01/17 at 21:15 Ascorbic Acid (Vitamin C) 500 mg BID PO Last administered on 11/15/17 19:53; Start 11/02/17 at 09:00 Bisacodyl (Dulcolax Tab) 10 mg PRN DAILY PRN PO CONSTIPATION; Start 11/01/17 at 21:15 Calcium Carbonate/ Glycine (Tums) 500 mg PRN Q4HRS PRN PO DYSPEPSIA; Start 06/10 at 21:30 Ferrous Gluconate (Fergon) 324 mg BID PO Last administered on 11/08/17at 09:25; Start 11/02/17 at 09:00; Stop 11/08/17 at 18:45; Status DC Pantoprazole Sodium (Protonix) 40 mg DAILYAC PO Last administered on 11/15/17 08:37; Start 11/02/17 at 07:30 Magnesium Hydroxide (Milk Of Magnesia) 2,400 mg PRN QHS PRN PO CONSTIPATION Last administered on 11/05/17at 20:28; Start 11/01/17 at 21:30 Ondansetron HCl (Zofran Odt) 4 mg PRN Q6HRS PRN PO NAUSEA/VOMITING; Start 11/01 at 21:45 Multi-Ingredient Ointment (Analgesic [place]) 1 serg PRN QID PRN TP MUSCLE PAIN; Start 11/01/17 at 21:15 Al Hydroxide/Mg Hydroxide (Mylanta Plus Xs) 15 ml PRN AFTMEALHC PRN PO DYSPEPSIA; Start 11/01/17 at 21:15 Mirtazapine (Remeron) 15 mg QHS PO Last administered on 11/15/17 19:53; Start 11/01/17 at 21:29 Olanzapine (ZyPREXA ZYDIS) 2.5 mg PRN Q2HR PRN PO PSYCHOSIS Last administered on 11/15/17 18:41; Start 11/03/17 at 08:00 Vitamin D (Vitamin D3) 50,000 unit WEEKLY PO Last administered on 11/11/17at 07: 43; Start 11/04/17 at 15:00 Fluvoxamine Maleate (Luvox) 75 mg DAILY PO Last administered on 11/06/17at 08:27 ; Start 11/05/17 at 09:00; Stop 11/06/17 at 19:21; Status DC Fluvoxamine Maleate (Luvox) 100 mg DAILY PO Last administered on 11/15/17 08: 37; Start 11/07/17 at 09:00 Buspirone HCl (Buspar) 5 mg BID@0900,1300 PO Last administered on 11/15/17at 12: 12; Start 11/09/17 at 09:00 Ferrous Sulfate (Feosol) 325 mg DAILYWBKFT PO Last administered on 11/15/17at 08 :37; Start 11/09/17 at 08:00 Quetiapine Fumarate (SEROquel) 25 mg TID@0900,1300,1700 PO Last administered on 11/15/17 08:38; Start 11/15/17 at 09:00; Stop 11/15/17 at 11:18; Status DC Quetiapine Fumarate (SEROquel) 37.5 mg TID@0900,1300,1700 PO Last administered on 11/15/17 17:58; Start 11/15/17 at 13:00 Quetiapine Fumarate (SEROquel) 37.5 mg QHS PO Last administered on 11/15/17 19 :55; Start 11/15/17 at 21:00 Active Scripts Active Reported Zofran (Ondansetron Hcl) 4 Mg Tablet 4 Mg PO PRN Q6HRS PRN Fluvoxamine Maleate 50 Mg Tablet 50 Mg PO DAILY Seroquel (Quetiapine Fumarate) 25 Mg Tablet 25 Mg PO TID@0900,1700,2100 Seroquel (Quetiapine Fumarate) 25 Mg Tablet 12.5 Mg PO DAILY 1300 Mirtazapine 15 Mg Tablet 15 Mg PO QHS Milk Of Magnesia (Magnesium Hydroxide) 2,400 Mg/10 Ml Oral.susp 2,400 Mg PO PRN QHS PRN Donepezil Hcl 10 Mg Tablet 10 Mg PO DAILY Tylenol (Acetaminophen) 325 Mg Tablet 650 Mg PO PRN Q6HRS PRN Maximum Acetaminophen dose is 4000 mg in 24 hours from all sources for adults Vitamin C (Ascorbic Acid) 500 Mg Tablet 500 Mg PO BID Calcium Carbonate 500 Mg Tablet 500 Mg PO PRN Q4HRS PRN Pantoprazole Sodium 40 Mg Tablet.dr 40 Mg PO DAILYAC Ferrous Gluconate 324 Mg Tablet 324 Mg PO BID Bisacodyl 5 Mg Tablet.dr 10 Mg PO PRN DAILY PRN I have reviewed the current psychotropics carefully including drug interactions. Risk benefit ratio favors no change other than as noted in my dictated progress note. Diagnosis: Problems: (1) Aggression (2) Major neurocognitive disorder, due to vascular disease, with behavioral disturbance, mild (3) Alzheimer's dementia (4) Behavior problem (5) Delusion REX ANGELES MD Nov 15, 2017 20:22
--- NOTE | 2017-11-15 22:09 | PN ---
DATE: 11/14/2017 PSYCHIATRIC PROGRESS NOTE This late entry 11/14/2017 covers elements not covered in my initial note of 11/14/2017. SUBJECTIVE: Met with the patient in the evening of 11/14/2017. The patient slept 6-1/2 hours previous evening. She has had a difficult day, has been spitting at staff, confused, believes this is her home, everyone else's intruding. Zyprexa was not very effective for her, per nursing report. REVIEW OF SYSTEMS: No CV, , pulmonary, eye system symptoms on review. Reliability is poor. MENTAL STATUS EXAM: Oriented to herself. Insight, judgment, recent and remote memory, attention, concentration, fund of knowledge is poor, consistent with her diagnoses. She is quite pleasant, smiling as I met with her, but oblivious of her surroundings. LABORATORY DATA: Reviewed. IMPRESSION: Major neurocognitive disorder, Alzheimer, vascular with delusion, depression, behavioral disturbance. Rest is unchanged. PLAN: Increase the Seroquel from 25 mg b.i.d. to 37.5 mg 3 times a day. Continue rest unchanged. MAN Ifeanyi ANGELES MD DR: ADA/norah JOB#: [id number] / [id number]
[2017-11-16 06:12] VITALS: BP 171/79
[2017-11-16] MEDS: DONEPEZIL HCL 10 MG TABLET PO SCH (07:42)
[2017-11-16] MEDS: busPIRone 5 MG TABLET. PO SCH ×3 (07:42→19:59)
[2017-11-16] MEDS: FERROUS SULFATE 325 MG TABLET. PO SCH (07:42)
[2017-11-16] MEDS: ASCORBIC ACID 500 MG TABLET PO SCH ×2 (07:42→19:55)
[2017-11-16] MEDS: PANTOPRAZOLE 40 MG TABLET. PO SCH (07:42)
[2017-11-16] MEDS: QUEtiapine 25 MG TABLET. PO SCH ×4 (07:42→19:57)
[2017-11-16] MEDS: ACETAMINOPHEN 325 MG TABLET PO PRN ×2 (10:26→16:36)
[2017-11-16 16:17] VITALS: BP 128/68
[2017-11-16] MEDS: MIRTAZAPINE 15 MG TABLET PO SCH (19:55)
--- NOTE | 2017-11-16 21:06 | PDOC ---
Exam Note: Jarrod Note: Please also refer to the separate dictated note~for this date of service dictated separately.~Patient seen individually. Discussed the patient with Nursing staff reviewed the chart.~Reviewed interim history and current functioning. Reviewed vital signs,~Labs/ Radiology~and current medications noted below. Continue current treatment with the changes noted in the dictated addendum note Assessment: Vital Signs: Vital Signs Date Time Temp Pulse Resp B/P (MAP) Pulse Ox O2 Delivery O2 Flow Rate FiO2 11/16/17 16:17 98.1 70 20 128/68 (88) 94 11/15/17 06:27 Room Air I&O Intake and Output 11/16/17 07:00 Intake Total 600 ml Balance 600 ml Intake Oral 600 ml # Voids 1 # Bowel Movements 1 Labs: Laboratory Tests Test 11/16/17 19:15 Glucose (Fingerstick) 104 mg/dL (70-99) H Current Medications: Meds: Current Medications Alprazolam (Xanax) 0.5 mg 1X ONCE PO Last administered on 11/01/17at 19:25; Start 11/01/17 at 19:30; Stop 11/01/17 at 19:31; Status DC Alprazolam (Xanax) 0.25 mg STK-MED ONCE .ROUTE ; Start 11/01/17 at 19:21; Stop 11/01/17 at 19:22; Status DC Alprazolam (Xanax) 0.25 mg STK-MED ONCE .ROUTE ; Start 11/01/17 at 19:23; Stop 11/01/17 at 19:24; Status DC Donepezil HCl (Aricept) 10 mg DAILY PO Last administered on 11/16/17at 07:42; Start 11/02/17 at 09:00 Mirtazapine (Remeron) 7.5 mg QHS PO ; Start 11/01/17 at 22:00; Stop 11/01/17 at 22:00; Status DC Quetiapine Fumarate (SEROquel) 12.5 mg DAILYWLUN PO Last administered on at 12:39; Start 11/02/17 at 12:00; Stop 11/14/17 at 19:24; Status DC Quetiapine Fumarate (SEROquel) 25 mg TID@0900,1700,2100 PO Last administered on 11/14/17 17:16; Start 11/01/17 at 22:00; Stop 11/14/17 at 19:24; Status DC Fluvoxamine Maleate (Luvox) 50 mg DAILY PO Last administered on 11/04/17at 08:03 ; Start 11/02/17 at 09:00; Stop 11/04/17 at 18:17; Status DC Acetaminophen (Tylenol) 650 mg PRN Q6HRS PRN PO PAIN / TEMP Last administered on 11/16/17at 16:36; Start 11/01/17 at 21:15 Ascorbic Acid (Vitamin C) 500 mg BID PO Last administered on 11/16/17at 19:55; Start 11/02/17 at 09:00 Bisacodyl (Dulcolax Tab) 10 mg PRN DAILY PRN PO CONSTIPATION; Start 11/01/17 at 21:15 Calcium Carbonate/ Glycine (Tums) 500 mg PRN Q4HRS PRN PO DYSPEPSIA; Start 06/10 at 21:30 Ferrous Gluconate (Fergon) 324 mg BID PO Last administered on 11/08/17at 09:25; Start 11/02/17 at 09:00; Stop 11/08/17 at 18:45; Status DC Pantoprazole Sodium (Protonix) 40 mg DAILYAC PO Last administered on 11/16/17at 07:42; Start 11/02/17 at 07:30 Magnesium Hydroxide (Milk Of Magnesia) 2,400 mg PRN QHS PRN PO CONSTIPATION Last administered on 11/05/17at 20:28; Start 11/01/17 at 21:30 Ondansetron HCl (Zofran Odt) 4 mg PRN Q6HRS PRN PO NAUSEA/VOMITING; Start 11/01 at 21:45 Multi-Ingredient Ointment (Analgesic [place]) 1 serg PRN QID PRN TP MUSCLE PAIN; Start 11/01/17 at 21:15 Al Hydroxide/Mg Hydroxide (Mylanta Plus Xs) 15 ml PRN AFTMEALHC PRN PO DYSPEPSIA; Start 11/01/17 at 21:15 Mirtazapine (Remeron) 15 mg QHS PO Last administered on 11/16/17at 19:55; Start 11/01/17 at 21:29 Olanzapine (ZyPREXA ZYDIS) 2.5 mg PRN Q2HR PRN PO PSYCHOSIS Last administered on 11/15/17 18:41; Start 11/03/17 at 08:00 Vitamin D (Vitamin D3) 50,000 unit WEEKLY PO Last administered on 11/11/17at 07: 43; Start 11/04/17 at 15:00 Fluvoxamine Maleate (Luvox) 75 mg DAILY PO Last administered on 11/06/17at 08:27 ; Start 11/05/17 at 09:00; Stop 11/06/17 at 19:21; Status DC Fluvoxamine Maleate (Luvox) 100 mg DAILY PO Last administered on 11/16/17 07: 42; Start 11/07/17 at 09:00 Buspirone HCl (Buspar) 5 mg BID@0900,1300 PO Last administered on 11/16/17 07: 42; Start 11/09/17 at 09:00; Stop 11/16/17 at 12:17; Status DC Ferrous Sulfate (Feosol) 325 mg DAILYWBKFT PO Last administered on 11/16/17at 07 :42; Start 11/09/17 at 08:00 Quetiapine Fumarate (SEROquel) 25 mg TID@0900,1300,1700 PO Last administered on 11/15/17at 08:38; Start 11/15/17 at 09:00; Stop 11/15/17 at 11:18; Status DC Quetiapine Fumarate (SEROquel) 37.5 mg TID@0900,1300,1700 PO Last administered on 11/16/17at 16:37; Start 11/15/17 at 13:00 Quetiapine Fumarate (SEROquel) 37.5 mg QHS PO Last administered on 11/16/17 19 :57; Start 11/15/17 at 21:00 Buspirone HCl (Buspar) 5 mg TID PO Last administered on 11/16/17 19:59; Start 11/16/17 at 14:00 Active Scripts Active Reported Zofran (Ondansetron Hcl) 4 Mg Tablet 4 Mg PO PRN Q6HRS PRN Fluvoxamine Maleate 50 Mg Tablet 50 Mg PO DAILY Seroquel (Quetiapine Fumarate) 25 Mg Tablet 25 Mg PO TID@0900,1700,2100 Seroquel (Quetiapine Fumarate) 25 Mg Tablet 12.5 Mg PO DAILY 1300 Mirtazapine 15 Mg Tablet 15 Mg PO QHS Milk Of Magnesia (Magnesium Hydroxide) 2,400 Mg/10 Ml Oral.susp 2,400 Mg PO PRN QHS PRN Donepezil Hcl 10 Mg Tablet 10 Mg PO DAILY Tylenol (Acetaminophen) 325 Mg Tablet 650 Mg PO PRN Q6HRS PRN Maximum Acetaminophen dose is 4000 mg in 24 hours from all sources for adults Vitamin C (Ascorbic Acid) 500 Mg Tablet 500 Mg PO BID Calcium Carbonate 500 Mg Tablet 500 Mg PO PRN Q4HRS PRN Pantoprazole Sodium 40 Mg Tablet.dr 40 Mg PO DAILYAC Ferrous Gluconate 324 Mg Tablet 324 Mg PO BID Bisacodyl 5 Mg Tablet.dr 10 Mg PO PRN DAILY PRN I have reviewed the current psychotropics carefully including drug interactions. Risk benefit ratio favors no change other than as noted in my dictated progress note. Diagnosis: Problems: (1) Aggression (2) Major neurocognitive disorder, due to vascular disease, with behavioral disturbance, mild (3) Alzheimer's dementia (4) Behavior problem (5) Delusion REX ANGELES MD Nov 16, 2017 21:06
[2017-11-17 05:51] VITALS: BP 149/79
[2017-11-17] MEDS: QUEtiapine 25 MG TABLET. PO SCH ×4 (09:03→19:28)
[2017-11-17] MEDS: FERROUS SULFATE 325 MG TABLET. PO SCH (09:03)
[2017-11-17] MEDS: PANTOPRAZOLE 40 MG TABLET. PO SCH (09:03)
[2017-11-17] MEDS: busPIRone 5 MG TABLET. PO SCH ×3 (09:03→19:29)
[2017-11-17] MEDS: ASCORBIC ACID 500 MG TABLET PO SCH ×2 (09:03→19:29)
[2017-11-17] MEDS: DONEPEZIL HCL 10 MG TABLET PO SCH (09:04)
[2017-11-17 16:21] VITALS: BP 107/70
[2017-11-17] MEDS: MIRTAZAPINE 15 MG TABLET PO SCH (19:29)
--- NOTE | 2017-11-17 22:53 | PDOC ---
Exam Note: Jarrod Note: Please also refer to the separate dictated note~for this date of service dictated separately.~Patient seen individually. Discussed the patient with Nursing staff reviewed the chart.~Reviewed interim history and current functioning. Reviewed vital signs,~Labs/ Radiology~and current medications noted below. Continue current treatment with the changes noted in the dictated addendum note Assessment: Vital Signs: Vital Signs Date Time Temp Pulse Resp B/P (MAP) Pulse Ox O2 Delivery O2 Flow Rate FiO2 11/17/17 16:21 98.2 67 18 107/70 (82) 94 11/15/17 06:27 Room Air I&O Intake and Output 11/17/17 07:00 Intake Total 600 ml Balance 600 ml Intake Oral 600 ml Current Medications: Meds: Current Medications Alprazolam (Xanax) 0.5 mg 1X ONCE PO Last administered on 11/01/17at 19:25; Start 11/01/17 at 19:30; Stop 11/01/17 at 19:31; Status DC Alprazolam (Xanax) 0.25 mg STK-MED ONCE .ROUTE ; Start 11/01/17 at 19:21; Stop 11/01/17 at 19:22; Status DC Alprazolam (Xanax) 0.25 mg STK-MED ONCE .ROUTE ; Start 11/01/17 at 19:23; Stop 11/01/17 at 19:24; Status DC Donepezil HCl (Aricept) 10 mg DAILY PO Last administered on 11/17/17at 09:04; Start 11/02/17 at 09:00 Mirtazapine (Remeron) 7.5 mg QHS PO ; Start 11/01/17 at 22:00; Stop 11/01/17 at 22:00; Status DC Quetiapine Fumarate (SEROquel) 12.5 mg DAILYWLUN PO Last administered on at 12:39; Start 11/02/17 at 12:00; Stop 11/14/17 at 19:24; Status DC Quetiapine Fumarate (SEROquel) 25 mg TID@0900,1700,2100 PO Last administered on 11/14/17at 17:16; Start 11/01/17 at 22:00; Stop 11/14/17 at 19:24; Status DC Fluvoxamine Maleate (Luvox) 50 mg DAILY PO Last administered on 11/04/17 08:03 ; Start 11/02/17 at 09:00; Stop 11/04/17 at 18:17; Status DC Acetaminophen (Tylenol) 650 mg PRN Q6HRS PRN PO PAIN / TEMP Last administered on 11/16/17at 16:36; Start 11/01/17 at 21:15 Ascorbic Acid (Vitamin C) 500 mg BID PO Last administered on 11/17/17 19:29; Start 11/02/17 at 09:00 Bisacodyl (Dulcolax Tab) 10 mg PRN DAILY PRN PO CONSTIPATION; Start 11/01/17 at 21:15 Calcium Carbonate/ Glycine (Tums) 500 mg PRN Q4HRS PRN PO DYSPEPSIA; Start 06/10 at 21:30 Ferrous Gluconate (Fergon) 324 mg BID PO Last administered on 11/08/17at 09:25; Start 11/02/17 at 09:00; Stop 11/08/17 at 18:45; Status DC Pantoprazole Sodium (Protonix) 40 mg DAILYAC PO Last administered on 11/17/17 09:03; Start 11/02/17 at 07:30 Magnesium Hydroxide (Milk Of Magnesia) 2,400 mg PRN QHS PRN PO CONSTIPATION Last administered on 11/05/17at 20:28; Start 11/01/17 at 21:30 Ondansetron HCl (Zofran Odt) 4 mg PRN Q6HRS PRN PO NAUSEA/VOMITING; Start 11/01 at 21:45 Multi-Ingredient Ointment (Analgesic [place]) 1 serg PRN QID PRN TP MUSCLE PAIN; Start 11/01/17 at 21:15 Al Hydroxide/Mg Hydroxide (Mylanta Plus Xs) 15 ml PRN AFTMEALHC PRN PO DYSPEPSIA; Start 11/01/17 at 21:15 Mirtazapine (Remeron) 15 mg QHS PO Last administered on 11/17/17at 19:29; Start 11/01/17 at 21:29 Olanzapine (ZyPREXA ZYDIS) 2.5 mg PRN Q2HR PRN PO PSYCHOSIS Last administered on 11/15/17at 18:41; Start 11/03/17 at 08:00 Vitamin D (Vitamin D3) 50,000 unit WEEKLY PO Last administered on 11/11/17at 07: 43; Start 11/04/17 at 15:00 Fluvoxamine Maleate (Luvox) 75 mg DAILY PO Last administered on 11/06/17at 08:27 ; Start 11/05/17 at 09:00; Stop 11/06/17 at 19:21; Status DC Fluvoxamine Maleate (Luvox) 100 mg DAILY PO Last administered on 11/17/17at 09: 03; Start 11/07/17 at 09:00 Buspirone HCl (Buspar) 5 mg BID@0900,1300 PO Last administered on 11/16/17at 07: 42; Start 11/09/17 at 09:00; Stop 11/16/17 at 12:17; Status DC Ferrous Sulfate (Feosol) 325 mg DAILYWBKFT PO Last administered on 11/17/17at 09 :03; Start 11/09/17 at 08:00 Quetiapine Fumarate (SEROquel) 25 mg TID@0900,1300,1700 PO Last administered on 11/15/17at 08:38; Start 11/15/17 at 09:00; Stop 11/15/17 at 11:18; Status DC Quetiapine Fumarate (SEROquel) 37.5 mg TID@0900,1300,1700 PO Last administered on 11/17/17at 17:37; Start 11/15/17 at 13:00 Quetiapine Fumarate (SEROquel) 37.5 mg QHS PO Last administered on 11/17/17at 19 :28; Start 11/15/17 at 21:00 Buspirone HCl (Buspar) 5 mg TID PO Last administered on 11/17/17at 19:29; Start 11/16/17 at 14:00 Active Scripts Active Reported Zofran (Ondansetron Hcl) 4 Mg Tablet 4 Mg PO PRN Q6HRS PRN Fluvoxamine Maleate 50 Mg Tablet 50 Mg PO DAILY Seroquel (Quetiapine Fumarate) 25 Mg Tablet 25 Mg PO TID@0900,1700,2100 Seroquel (Quetiapine Fumarate) 25 Mg Tablet 12.5 Mg PO DAILY 1300 Mirtazapine 15 Mg Tablet 15 Mg PO QHS Milk Of Magnesia (Magnesium Hydroxide) 2,400 Mg/10 Ml Oral.susp 2,400 Mg PO PRN QHS PRN Donepezil Hcl 10 Mg Tablet 10 Mg PO DAILY Tylenol (Acetaminophen) 325 Mg Tablet 650 Mg PO PRN Q6HRS PRN Maximum Acetaminophen dose is 4000 mg in 24 hours from all sources for adults Vitamin C (Ascorbic Acid) 500 Mg Tablet 500 Mg PO BID Calcium Carbonate 500 Mg Tablet 500 Mg PO PRN Q4HRS PRN Pantoprazole Sodium 40 Mg Tablet.dr 40 Mg PO DAILYAC Ferrous Gluconate 324 Mg Tablet 324 Mg PO BID Bisacodyl 5 Mg Tablet.dr 10 Mg PO PRN DAILY PRN I have reviewed the current psychotropics carefully including drug interactions. Risk benefit ratio favors no change other than as noted in my dictated progress note. Diagnosis: Problems: (1) Aggression (2) Major neurocognitive disorder, due to vascular disease, with behavioral disturbance, mild (3) Alzheimer's dementia (4) Behavior problem (5) Delusion REX ANGELES MD Nov 17, 2017 22:53
[2017-11-18 06:19] VITALS: BP 121/70
[2017-11-18] MEDS: PANTOPRAZOLE 40 MG TABLET. PO SCH (07:33)
[2017-11-18] MEDS: ASCORBIC ACID 500 MG TABLET PO SCH ×2 (08:48→20:14)
[2017-11-18] MEDS: FERROUS SULFATE 325 MG TABLET. PO SCH (08:48)
[2017-11-18] MEDS: busPIRone 5 MG TABLET. PO SCH ×3 (08:48→20:12)
[2017-11-18] MEDS: QUEtiapine 25 MG TABLET. PO SCH ×4 (08:48→20:12)
[2017-11-18] MEDS: DONEPEZIL HCL 10 MG TABLET PO SCH (08:48)
[2017-11-18] MEDS: CHOLECALCIFEROL (VITAMIN D3) 50,000 UNIT CAPSULE PO SCH (08:49)
--- NOTE | 2017-11-18 11:18 | PN ---
DATE: 11/15/2017 PSYCHIATRIC PROGRESS NOTE This is a late entry for 11/15/2017, covers elements not covered in my initial note of 11/15/2017. SUBJECTIVE: I met with the patient the evening of 11/15/2017. The patient slept 8-1/4 hours previous evening. Overall, she has had a better day as compared to the day before. She let staff help her, was little more redirectable. REVIEW OF SYSTEMS: No CV, , pulmonary, eye, ENT system symptoms on review. Reliability poor. She ambulates bent forward 45 degrees. MENTAL STATUS EXAM: Oriented to herself. Insight, judgment, recent and remote memory, attention, concentration, fund of knowledge poor, consistent with her diagnosis. Pleasant, smiling as I met with her. Still somewhat delusional, certainly very confused. LABORATORY DATA: Reviewed. IMPRESSION: Major neurocognitive disorder, Alzheimer, vascular with delusion, depression Rest unchanged. PLAN: Increase Seroquel from 37.5 mg 3 times a day to 37.5 mg 4 times a day. Continue rest unchanged per initial note. MAN Ifeanyi ANGELES MD DR: ADA/norah JOB#: [id number] / [id number]
[2017-11-18] MEDS: ACETAMINOPHEN 325 MG TABLET PO PRN (13:59)
[2017-11-18 16:52] VITALS: BP 127/85
--- NOTE | 2017-11-18 19:46 | PN ---
DATE: 11/16/2017 PSYCHIATRIC PROGRESS NOTE This is a late entry 11/16/2017, covers elements not covered in my initial note 11/16/2017. SUBJECTIVE: I met with the patient in the evening and staffed at treatment team meeting with entire team in the morning. Towards the afternoon the patient had a good mood aggression. Morning, she was a little more irritable. REVIEW OF SYSTEMS: No CV, , pulmonary, eye, ENT system symptoms on review. Reliability poor. Ambulates bent forward 60 degrees. MENTAL STATUS EXAM: Oriented to herself. Insight, judgment, recent and remote memory, attention, concentration, fund of knowledge poor, consistent with her diagnoses mentioned in my initial note. PLAN: Continue current psychotropics. Adjust as indicated. MAN Ifeanyi ANGELES MD DR: ADA/norah JOB#: [id number] / [id number]
[2017-11-18] MEDS: MIRTAZAPINE 15 MG TABLET PO SCH (20:14)
--- NOTE | 2017-11-18 22:24 | PDOC ---
Exam Note: Jarrod Note: Please also refer to the separate dictated note~for this date of service dictated separately.~Patient seen individually. Discussed the patient with Nursing staff reviewed the chart.~Reviewed interim history and current functioning. Reviewed vital signs,~Labs/ Radiology~and current medications noted below. Continue current treatment with the changes noted in the dictated addendum note Assessment: Vital Signs: Vital Signs Date Time Temp Pulse Resp B/P (MAP) Pulse Ox O2 Delivery O2 Flow Rate FiO2 11/18/17 16:52 97.8 81 20 127/85 (99) 96 11/15/17 06:27 Room Air I&O Intake and Output 11/18/17 07:00 Intake Total 480 ml Balance 480 ml Intake Oral 480 ml Current Medications: Meds: Current Medications Alprazolam (Xanax) 0.5 mg 1X ONCE PO Last administered on 11/01/17at 19:25; Start 11/01/17 at 19:30; Stop 11/01/17 at 19:31; Status DC Alprazolam (Xanax) 0.25 mg STK-MED ONCE .ROUTE ; Start 11/01/17 at 19:21; Stop 11/01/17 at 19:22; Status DC Alprazolam (Xanax) 0.25 mg STK-MED ONCE .ROUTE ; Start 11/01/17 at 19:23; Stop 11/01/17 at 19:24; Status DC Donepezil HCl (Aricept) 10 mg DAILY PO Last administered on 11/18/17at 08:48; Start 11/02/17 at 09:00 Mirtazapine (Remeron) 7.5 mg QHS PO ; Start 11/01/17 at 22:00; Stop 11/01/17 at 22:00; Status DC Quetiapine Fumarate (SEROquel) 12.5 mg DAILYWLUN PO Last administered on at 12:39; Start 11/02/17 at 12:00; Stop 11/14/17 at 19:24; Status DC Quetiapine Fumarate (SEROquel) 25 mg TID@0900,1700,2100 PO Last administered on 11/14/17at 17:16; Start 11/01/17 at 22:00; Stop 11/14/17 at 19:24; Status DC Fluvoxamine Maleate (Luvox) 50 mg DAILY PO Last administered on 11/04/17 08:03 ; Start 11/02/17 at 09:00; Stop 11/04/17 at 18:17; Status DC Acetaminophen (Tylenol) 650 mg PRN Q6HRS PRN PO PAIN / TEMP Last administered on 11/18/17 13:59; Start 11/01/17 at 21:15 Ascorbic Acid (Vitamin C) 500 mg BID PO Last administered on 11/18/17at 20:14; Start 11/02/17 at 09:00 Bisacodyl (Dulcolax Tab) 10 mg PRN DAILY PRN PO CONSTIPATION; Start 11/01/17 at 21:15 Calcium Carbonate/ Glycine (Tums) 500 mg PRN Q4HRS PRN PO DYSPEPSIA; Start 06/10 at 21:30 Ferrous Gluconate (Fergon) 324 mg BID PO Last administered on 11/08/17at 09:25; Start 11/02/17 at 09:00; Stop 11/08/17 at 18:45; Status DC Pantoprazole Sodium (Protonix) 40 mg DAILYAC PO Last administered on 11/18/17at 07:33; Start 11/02/17 at 07:30 Magnesium Hydroxide (Milk Of Magnesia) 2,400 mg PRN QHS PRN PO CONSTIPATION Last administered on 11/05/17at 20:28; Start 11/01/17 at 21:30 Ondansetron HCl (Zofran Odt) 4 mg PRN Q6HRS PRN PO NAUSEA/VOMITING; Start 11/01 at 21:45 Multi-Ingredient Ointment (Analgesic [place]) 1 serg PRN QID PRN TP MUSCLE PAIN; Start 11/01/17 at 21:15 Al Hydroxide/Mg Hydroxide (Mylanta Plus Xs) 15 ml PRN AFTMEALHC PRN PO DYSPEPSIA; Start 11/01/17 at 21:15 Mirtazapine (Remeron) 15 mg QHS PO Last administered on 11/18/17at 20:14; Start 11/01/17 at 21:29 Olanzapine (ZyPREXA ZYDIS) 2.5 mg PRN Q2HR PRN PO PSYCHOSIS Last administered on 11/18/17at 13:59; Start 11/03/17 at 08:00 Vitamin D (Vitamin D3) 50,000 unit WEEKLY PO Last administered on 11/18/17at 08: 49; Start 11/04/17 at 15:00 Fluvoxamine Maleate (Luvox) 75 mg DAILY PO Last administered on 11/06/17at 08:27 ; Start 11/05/17 at 09:00; Stop 11/06/17 at 19:21; Status DC Fluvoxamine Maleate (Luvox) 100 mg DAILY PO Last administered on 11/18/17at 08: 48; Start 11/07/17 at 09:00 Buspirone HCl (Buspar) 5 mg BID@0900,1300 PO Last administered on 11/16/17at 07: 42; Start 11/09/17 at 09:00; Stop 11/16/17 at 12:17; Status DC Ferrous Sulfate (Feosol) 325 mg DAILYWBKFT PO Last administered on 11/18/17at 08 :48; Start 11/09/17 at 08:00 Quetiapine Fumarate (SEROquel) 25 mg TID@0900,1300,1700 PO Last administered on 11/15/17at 08:38; Start 11/15/17 at 09:00; Stop 11/15/17 at 11:18; Status DC Quetiapine Fumarate (SEROquel) 37.5 mg TID@0900,1300,1700 PO Last administered on 11/18/17at 16:58; Start 11/15/17 at 13:00 Quetiapine Fumarate (SEROquel) 37.5 mg QHS PO Last administered on 11/18/17at 20 :12; Start 11/15/17 at 21:00 Buspirone HCl (Buspar) 5 mg TID PO Last administered on 11/18/17at 20:12; Start 11/16/17 at 14:00 Active Scripts Active Reported Zofran (Ondansetron Hcl) 4 Mg Tablet 4 Mg PO PRN Q6HRS PRN Fluvoxamine Maleate 50 Mg Tablet 50 Mg PO DAILY Seroquel (Quetiapine Fumarate) 25 Mg Tablet 25 Mg PO TID@0900,1700,2100 Seroquel (Quetiapine Fumarate) 25 Mg Tablet 12.5 Mg PO DAILY 1300 Mirtazapine 15 Mg Tablet 15 Mg PO QHS Milk Of Magnesia (Magnesium Hydroxide) 2,400 Mg/10 Ml Oral.susp 2,400 Mg PO PRN QHS PRN Donepezil Hcl 10 Mg Tablet 10 Mg PO DAILY Tylenol (Acetaminophen) 325 Mg Tablet 650 Mg PO PRN Q6HRS PRN Maximum Acetaminophen dose is 4000 mg in 24 hours from all sources for adults Vitamin C (Ascorbic Acid) 500 Mg Tablet 500 Mg PO BID Calcium Carbonate 500 Mg Tablet 500 Mg PO PRN Q4HRS PRN Pantoprazole Sodium 40 Mg Tablet.dr 40 Mg PO DAILYAC Ferrous Gluconate 324 Mg Tablet 324 Mg PO BID Bisacodyl 5 Mg Tablet.dr 10 Mg PO PRN DAILY PRN I have reviewed the current psychotropics carefully including drug interactions. Risk benefit ratio favors no change other than as noted in my dictated progress note. Diagnosis: Problems: (1) Aggression (2) Major neurocognitive disorder, due to vascular disease, with behavioral disturbance, mild (3) Alzheimer's dementia (4) Behavior problem (5) Delusion REX ANGELES MD Nov 18, 2017 22:23
[2017-11-19 06:15] VITALS: BP 174/87
[2017-11-19] MEDS: PANTOPRAZOLE 40 MG TABLET. PO SCH (07:58)
[2017-11-19] MEDS: QUEtiapine 25 MG TABLET. PO SCH ×4 (07:59→20:07)
[2017-11-19] MEDS: DONEPEZIL HCL 10 MG TABLET PO SCH (07:59)
[2017-11-19] MEDS: busPIRone 5 MG TABLET. PO SCH ×3 (07:59→20:07)
[2017-11-19] MEDS: ASCORBIC ACID 500 MG TABLET PO SCH ×2 (07:59→20:07)
[2017-11-19] MEDS: FERROUS SULFATE 325 MG TABLET. PO SCH (08:00)
[2017-11-19 08:23] LABS: HEMATOCRIT 41.4 % (36.0-47.0); HEMOGLOBIN 13.7 g/dL (12.0-15.5); RED BLOOD COUNT 4.52 x10^6/uL (3.50-5.40); RED CELL DISTRIBUTION WIDTH 14.3 % (11.5-14.5); WHITE BLOOD COUNT 5.6 x10^3/uL (4.0-11.0)
[2017-11-19 08:43] LABS: ALBUMIN 3.4 g/dL (3.4-5.0); CALCIUM 8.9 mg/dL (8.5-10.1); CREATININE 0.9 mg/dL (0.6-1.0); GFR 61.4; POTASSIUM 4.1 mmol/L (3.5-5.1); TOTAL BILIRUBIN 0.4 mg/dL (0.2-1.0); TOTAL PROTEIN 6.7 g/dL (6.4-8.2)
[2017-11-19] MEDS: ACETAMINOPHEN 325 MG TABLET PO PRN ×2 (11:59→16:02)
[2017-11-19 16:08] VITALS: BP 148/81
[2017-11-19] MEDS: MIRTAZAPINE 15 MG TABLET PO SCH (20:07)
--- NOTE | 2017-11-19 20:19 | PDOC ---
Exam Note: Jarrod Note: Please also refer to the separate dictated note~for this date of service dictated separately.~Patient seen individually. Discussed the patient with Nursing staff reviewed the chart.~Reviewed interim history and current functioning. Reviewed vital signs,~Labs/ Radiology~and current medications noted below. Continue current treatment with the changes noted in the dictated addendum note Assessment: Vital Signs: Vital Signs Date Time Temp Pulse Resp B/P (MAP) Pulse Ox O2 Delivery O2 Flow Rate FiO2 11/19/17 16:08 97.9 79 16 148/81 (103) 96 11/15/17 06:27 Room Air I&O Intake and Output 11/19/17 07:00 Intake Total 624 ml Balance 624 ml Intake Oral 624 ml Labs: Laboratory Tests Test 11/19/17 07:52 White Blood Count 5.6 x10^3/uL (4.0-11.0) Red Blood Count 4.52 x10^6/uL (3.50-5.40) Hemoglobin 13.7 g/dL (12.0-15.5) Hematocrit 41.4 % (36.0-47.0) Mean Corpuscular Volume 91 fL (79-100) Mean Corpuscular Hemoglobin 30 pg (25-35) Mean Corpuscular Hemoglobin Concent 33 g/dL (31-37) Red Cell Distribution Width 14.3 % (11.5-14.5) Platelet Count 245 x10^3/uL (140-400) Sodium Level 140 mmol/L (136-145) Potassium Level 4.1 mmol/L (3.5-5.1) Chloride Level 105 mmol/L (98-107) Carbon Dioxide Level 29 mmol/L (21-32) Anion Gap 6 (6-14) Blood Urea Nitrogen 20 mg/dL (7-20) Creatinine 0.9 mg/dL (0.6-1.0) Estimated GFR (Cockcroft-Gault) 61.4 BUN/Creatinine Ratio 22 (6-20) H Glucose Level 99 mg/dL (70-99) Calcium Level 8.9 mg/dL (8.5-10.1) Total Bilirubin 0.4 mg/dL (0.2-1.0) Aspartate Amino Transferase (AST) 24 U/L (15-37) Alanine Aminotransferase (ALT) 41 U/L (14-59) Alkaline Phosphatase 104 U/L (46-116) Total Protein 6.7 g/dL (6.4-8.2) Albumin 3.4 g/dL (3.4-5.0) Albumin/Globulin Ratio 1.0 (1.0-1.7) Current Medications: Meds: Current Medications Alprazolam (Xanax) 0.5 mg 1X ONCE PO Last administered on 11/01/17at 19:25; Start 11/01/17 at 19:30; Stop 11/01/17 at 19:31; Status DC Alprazolam (Xanax) 0.25 mg STK-MED ONCE .ROUTE ; Start 11/01/17 at 19:21; Stop 11/01/17 at 19:22; Status DC Alprazolam (Xanax) 0.25 mg STK-MED ONCE .ROUTE ; Start 11/01/17 at 19:23; Stop 11/01/17 at 19:24; Status DC Donepezil HCl (Aricept) 10 mg DAILY PO Last administered on 11/19/17at 07:59; Start 11/02/17 at 09:00 Mirtazapine (Remeron) 7.5 mg QHS PO ; Start 11/01/17 at 22:00; Stop 11/01/17 at 22:00; Status DC Quetiapine Fumarate (SEROquel) 12.5 mg DAILYWLUN PO Last administered on at 12:39; Start 11/02/17 at 12:00; Stop 11/14/17 at 19:24; Status DC Quetiapine Fumarate (SEROquel) 25 mg TID@0900,1700,2100 PO Last administered on 11/14/17at 17:16; Start 11/01/17 at 22:00; Stop 11/14/17 at 19:24; Status DC Fluvoxamine Maleate (Luvox) 50 mg DAILY PO Last administered on 11/04/17at 08:03 ; Start 11/02/17 at 09:00; Stop 11/04/17 at 18:17; Status DC Acetaminophen (Tylenol) 650 mg PRN Q6HRS PRN PO PAIN / TEMP Last administered on 11/19/17at 16:02; Start 11/01/17 at 21:15 Ascorbic Acid (Vitamin C) 500 mg BID PO Last administered on 11/19/17 20:07; Start 11/02/17 at 09:00 Bisacodyl (Dulcolax Tab) 10 mg PRN DAILY PRN PO CONSTIPATION; Start 11/01/17 at 21:15 Calcium Carbonate/ Glycine (Tums) 500 mg PRN Q4HRS PRN PO DYSPEPSIA; Start 06/10 at 21:30 Ferrous Gluconate (Fergon) 324 mg BID PO Last administered on 11/08/17at 09:25; Start 11/02/17 at 09:00; Stop 11/08/17 at 18:45; Status DC Pantoprazole Sodium (Protonix) 40 mg DAILYAC PO Last administered on 11/19/17 07:58; Start 11/02/17 at 07:30 Magnesium Hydroxide (Milk Of Magnesia) 2,400 mg PRN QHS PRN PO CONSTIPATION Last administered on 11/05/17at 20:28; Start 11/01/17 at 21:30 Ondansetron HCl (Zofran Odt) 4 mg PRN Q6HRS PRN PO NAUSEA/VOMITING; Start 11/01 at 21:45 Multi-Ingredient Ointment (Analgesic [place]) 1 serg PRN QID PRN TP MUSCLE PAIN; Start 11/01/17 at 21:15 Al Hydroxide/Mg Hydroxide (Mylanta Plus Xs) 15 ml PRN AFTMEALHC PRN PO DYSPEPSIA; Start 11/01/17 at 21:15 Mirtazapine (Remeron) 15 mg QHS PO Last administered on 11/19/17at 20:07; Start 11/01/17 at 21:29 Olanzapine (ZyPREXA ZYDIS) 2.5 mg PRN Q2HR PRN PO PSYCHOSIS Last administered on 11/18/17at 13:59; Start 11/03/17 at 08:00 Vitamin D (Vitamin D3) 50,000 unit WEEKLY PO Last administered on 11/18/17at 08: 49; Start 11/04/17 at 15:00 Fluvoxamine Maleate (Luvox) 75 mg DAILY PO Last administered on 11/06/17at 08:27 ; Start 11/05/17 at 09:00; Stop 11/06/17 at 19:21; Status DC Fluvoxamine Maleate (Luvox) 100 mg DAILY PO Last administered on 11/19/17at 07: 59; Start 11/07/17 at 09:00 Buspirone HCl (Buspar) 5 mg BID@0900,1300 PO Last administered on 11/16/17at 07: 42; Start 11/09/17 at 09:00; Stop 11/16/17 at 12:17; Status DC Ferrous Sulfate (Feosol) 325 mg DAILYWBKFT PO Last administered on 11/19/17at 08 :00; Start 11/09/17 at 08:00 Quetiapine Fumarate (SEROquel) 25 mg TID@0900,1300,1700 PO Last administered on 11/15/17at 08:38; Start 11/15/17 at 09:00; Stop 11/15/17 at 11:18; Status DC Quetiapine Fumarate (SEROquel) 37.5 mg TID@0900,1300,1700 PO Last administered on 11/19/17at 16:02; Start 11/15/17 at 13:00 Quetiapine Fumarate (SEROquel) 37.5 mg QHS PO Last administered on 11/19/17at 20 :07; Start 11/15/17 at 21:00 Buspirone HCl (Buspar) 5 mg TID PO Last administered on 11/19/17at 20:07; Start 11/16/17 at 14:00 Active Scripts Active Reported Zofran (Ondansetron Hcl) 4 Mg Tablet 4 Mg PO PRN Q6HRS PRN Fluvoxamine Maleate 50 Mg Tablet 50 Mg PO DAILY Seroquel (Quetiapine Fumarate) 25 Mg Tablet 25 Mg PO TID@0900,1700,2100 Seroquel (Quetiapine Fumarate) 25 Mg Tablet 12.5 Mg PO DAILY 1300 Mirtazapine 15 Mg Tablet 15 Mg PO QHS Milk Of Magnesia (Magnesium Hydroxide) 2,400 Mg/10 Ml Oral.susp 2,400 Mg PO PRN QHS PRN Donepezil Hcl 10 Mg Tablet 10 Mg PO DAILY Tylenol (Acetaminophen) 325 Mg Tablet 650 Mg PO PRN Q6HRS PRN Maximum Acetaminophen dose is 4000 mg in 24 hours from all sources for adults Vitamin C (Ascorbic Acid) 500 Mg Tablet 500 Mg PO BID Calcium Carbonate 500 Mg Tablet 500 Mg PO PRN Q4HRS PRN Pantoprazole Sodium 40 Mg Tablet.dr 40 Mg PO DAILYAC Ferrous Gluconate 324 Mg Tablet 324 Mg PO BID Bisacodyl 5 Mg Tablet.dr 10 Mg PO PRN DAILY PRN I have reviewed the current psychotropics carefully including drug interactions. Risk benefit ratio favors no change other than as noted in my dictated progress note. Diagnosis: Problems: (1) Aggression (2) Major neurocognitive disorder, due to vascular disease, with behavioral disturbance, mild (3) Alzheimer's dementia (4) Behavior problem (5) Delusion REX ANGELES MD Nov 19, 2017 20:19
--- NOTE | 2017-11-20 00:15 | PN ---
DATE: 11/17/2017 This is a late entry, 11/17/2017, covers the elements not covered in my initial note, 11/17/2017. SUBJECTIVE: I met with the patient in the evening. The patient slept 6 hours previous evening. The patient remains confused, walks bent forward 60 degrees. Otherwise, pleasant, less psychotic and agitated. REVIEW OF SYSTEMS: No CV, , pulmonary, eye, ENT system symptoms on review. Reliability poor. MENTAL STATUS EXAM: Oriented to herself. Insight, judgment, recent and remote memory, attention, concentration, fund of knowledge poor, consistent with her diagnosis as mentioned in my initial note. IMPRESSION: Unchanged from initial note. PLAN: Continue current psychotropics. MAN Ifeanyi ANGELES MD DR: ADA/norah JOB#: [id number] / [id number]
[2017-11-20 06:09] VITALS: BP 162/80
[2017-11-20] MEDS: PANTOPRAZOLE 40 MG TABLET. PO SCH (08:16)
[2017-11-20] MEDS: DONEPEZIL HCL 10 MG TABLET PO SCH (08:17)
[2017-11-20] MEDS: QUEtiapine 25 MG TABLET. PO SCH ×4 (08:18→20:22)
[2017-11-20] MEDS: ASCORBIC ACID 500 MG TABLET PO SCH ×2 (08:18→20:19)
[2017-11-20] MEDS: busPIRone 5 MG TABLET. PO SCH ×3 (08:18→20:19)
[2017-11-20] MEDS: FERROUS SULFATE 325 MG TABLET. PO SCH (08:18)
[2017-11-20 16:05] VITALS: BP 113/79
[2017-11-20] MEDS: MIRTAZAPINE 15 MG TABLET PO SCH (20:21)
--- NOTE | 2017-11-20 21:28 | PDOC ---
Exam Note: Jarrod Note: Please also refer to the separate dictated note~for this date of service dictated separately.~Patient seen individually. Discussed the patient with Nursing staff reviewed the chart.~Reviewed interim history and current functioning. Reviewed vital signs,~Labs/ Radiology~and current medications noted below. Continue current treatment with the changes noted in the dictated addendum note Assessment: Vital Signs: Vital Signs Date Time Temp Pulse Resp B/P (MAP) Pulse Ox O2 Delivery O2 Flow Rate FiO2 11/20/17 16:05 97.4 72 18 113/79 (90) 95 11/15/17 06:27 Room Air I&O Intake and Output 11/20/17 07:00 Intake Total 960 ml Balance 960 ml Intake Oral 960 ml # Voids 1 Current Medications: Meds: Current Medications Alprazolam (Xanax) 0.5 mg 1X ONCE PO Last administered on 11/01/17at 19:25; Start 11/01/17 at 19:30; Stop 11/01/17 at 19:31; Status DC Alprazolam (Xanax) 0.25 mg STK-MED ONCE .ROUTE ; Start 11/01/17 at 19:21; Stop 11/01/17 at 19:22; Status DC Alprazolam (Xanax) 0.25 mg STK-MED ONCE .ROUTE ; Start 11/01/17 at 19:23; Stop 11/01/17 at 19:24; Status DC Donepezil HCl (Aricept) 10 mg DAILY PO Last administered on 11/20/17at 08:17; Start 11/02/17 at 09:00 Mirtazapine (Remeron) 7.5 mg QHS PO ; Start 11/01/17 at 22:00; Stop 11/01/17 at 22:00; Status DC Quetiapine Fumarate (SEROquel) 12.5 mg DAILYWLUN PO Last administered on at 12:39; Start 11/02/17 at 12:00; Stop 11/14/17 at 19:24; Status DC Quetiapine Fumarate (SEROquel) 25 mg TID@0900,1700,2100 PO Last administered on 11/14/17at 17:16; Start 11/01/17 at 22:00; Stop 11/14/17 at 19:24; Status DC Fluvoxamine Maleate (Luvox) 50 mg DAILY PO Last administered on 11/04/17 08:03 ; Start 11/02/17 at 09:00; Stop 11/04/17 at 18:17; Status DC Acetaminophen (Tylenol) 650 mg PRN Q6HRS PRN PO PAIN / TEMP Last administered on 11/19/17 16:02; Start 11/01/17 at 21:15 Ascorbic Acid (Vitamin C) 500 mg BID PO Last administered on 11/20/17 20:19; Start 11/02/17 at 09:00 Bisacodyl (Dulcolax Tab) 10 mg PRN DAILY PRN PO CONSTIPATION Last administered on 11/20/17 08:41; Start 11/01/17 at 21:15 Calcium Carbonate/ Glycine (Tums) 500 mg PRN Q4HRS PRN PO DYSPEPSIA; Start 06/10 at 21:30 Ferrous Gluconate (Fergon) 324 mg BID PO Last administered on 11/08/17 09:25; Start 11/02/17 at 09:00; Stop 11/08/17 at 18:45; Status DC Pantoprazole Sodium (Protonix) 40 mg DAILYAC PO Last administered on 11/20/17 08:16; Start 11/02/17 at 07:30 Magnesium Hydroxide (Milk Of Magnesia) 2,400 mg PRN QHS PRN PO CONSTIPATION Last administered on 11/05/17 20:28; Start 11/01/17 at 21:30 Ondansetron HCl (Zofran Odt) 4 mg PRN Q6HRS PRN PO NAUSEA/VOMITING; Start 11/01 at 21:45 Multi-Ingredient Ointment (Analgesic [place]) 1 serg PRN QID PRN TP MUSCLE PAIN; Start 11/01/17 at 21:15 Al Hydroxide/Mg Hydroxide (Mylanta Plus Xs) 15 ml PRN AFTMEALHC PRN PO DYSPEPSIA; Start 11/01/17 at 21:15 Mirtazapine (Remeron) 15 mg QHS PO Last administered on 11/20/17 20:21; Start 11/01/17 at 21:29 Olanzapine (ZyPREXA ZYDIS) 2.5 mg PRN Q2HR PRN PO PSYCHOSIS Last administered on 11/20/17 12:33; Start 11/03/17 at 08:00 Vitamin D (Vitamin D3) 50,000 unit WEEKLY PO Last administered on 11/18/17at 08: 49; Start 11/04/17 at 15:00 Fluvoxamine Maleate (Luvox) 75 mg DAILY PO Last administered on 11/06/17at 08:27 ; Start 11/05/17 at 09:00; Stop 11/06/17 at 19:21; Status DC Fluvoxamine Maleate (Luvox) 100 mg DAILY PO Last administered on 11/20/17 08: 16; Start 11/07/17 at 09:00; Stop 11/20/17 at 18:15; Status DC Buspirone HCl (Buspar) 5 mg BID@0900,1300 PO Last administered on 11/16/17at 07: 42; Start 11/09/17 at 09:00; Stop 11/16/17 at 12:17; Status DC Ferrous Sulfate (Feosol) 325 mg DAILYWBKFT PO Last administered on 11/20/17at 08 :18; Start 11/09/17 at 08:00 Quetiapine Fumarate (SEROquel) 25 mg TID@0900,1300,1700 PO Last administered on 11/15/17at 08:38; Start 11/15/17 at 09:00; Stop 11/15/17 at 11:18; Status DC Quetiapine Fumarate (SEROquel) 37.5 mg TID@0900,1300,1700 PO Last administered on 11/20/17at 17:46; Start 11/15/17 at 13:00 Quetiapine Fumarate (SEROquel) 37.5 mg QHS PO Last administered on 11/20/17 20 :22; Start 11/15/17 at 21:00 Buspirone HCl (Buspar) 5 mg TID PO Last administered on 11/20/17 20:19; Start 11/16/17 at 14:00 Fluvoxamine Maleate (Luvox) 125 mg DAILY PO ; Start 11/21/17 at 09:00 Active Scripts Active Reported Zofran (Ondansetron Hcl) 4 Mg Tablet 4 Mg PO PRN Q6HRS PRN Fluvoxamine Maleate 50 Mg Tablet 50 Mg PO DAILY Seroquel (Quetiapine Fumarate) 25 Mg Tablet 25 Mg PO TID@0900,1700,2100 Seroquel (Quetiapine Fumarate) 25 Mg Tablet 12.5 Mg PO DAILY 1300 Mirtazapine 15 Mg Tablet 15 Mg PO QHS Milk Of Magnesia (Magnesium Hydroxide) 2,400 Mg/10 Ml Oral.susp 2,400 Mg PO PRN QHS PRN Donepezil Hcl 10 Mg Tablet 10 Mg PO DAILY Tylenol (Acetaminophen) 325 Mg Tablet 650 Mg PO PRN Q6HRS PRN Maximum Acetaminophen dose is 4000 mg in 24 hours from all sources for adults Vitamin C (Ascorbic Acid) 500 Mg Tablet 500 Mg PO BID Calcium Carbonate 500 Mg Tablet 500 Mg PO PRN Q4HRS PRN Pantoprazole Sodium 40 Mg Tablet.dr 40 Mg PO DAILYAC Ferrous Gluconate 324 Mg Tablet 324 Mg PO BID Bisacodyl 5 Mg Tablet.dr 10 Mg PO PRN DAILY PRN I have reviewed the current psychotropics carefully including drug interactions. Risk benefit ratio favors no change other than as noted in my dictated progress note. Diagnosis: Problems: (1) Aggression (2) Major neurocognitive disorder, due to vascular disease, with behavioral disturbance, mild (3) Alzheimer's dementia (4) Behavior problem (5) Delusion REX ANGELES MD Nov 20, 2017 21:28
--- NOTE | 2017-11-21 02:20 | PN ---
DATE: 11/18/2017 PSYCHIATRIC PROGRESS NOTE This is a late entry for 11/18/2017, covers elements not covered in my initial note of 11/18/2017. SUBJECTIVE: I met with the patient in the evening. The patient slept 8 hours previous evening, agitated after lunch, talking about having to get something for the babies. She received Tylenol and Zyprexa, was then less agitated. REVIEW OF SYSTEMS: No CV, , pulmonary, eye system symptoms on review. MENTAL STATUS EXAM: Oriented to herself. Insight, judgment, recent and remote memory, attention, concentration, fund of knowledge poor, consistent with her diagnosis mentioned in my initial note. IMPRESSION: Unchanged from initial note. PLAN: Continue current psychotropics. MAN Ifeanyi ANGELES MD DR: ADA/norah JOB#: [id number] / [id number]
--- NOTE | 2017-11-21 03:41 | PN ---
DATE: 11/18/2017 PSYCHIATRIC PROGRESS NOTE This late entry 11/18/2017 covers elements not covered in my initial note of 11/18/2017. SUBJECTIVE: I met with the patient in the evening. The patient slept 5-1/2 hours. He is doing better, less anxious, labile. Does complain of headaches and received Tylenol. We will check a CBC and CMP. REVIEW OF SYSTEMS: Ambulation on her own bent forward 45-60 degrees. No CV, , pulmonary, eye, ENT system symptoms on review. MENTAL STATUS EXAM: Oriented to herself. Insight, judgment, recent and remote memory, attention, concentration, fund of knowledge poor, consistent with her diagnosis mentioned in my initial note. PLAN: Continue current psychotropics per initial note. MAN Ifeanyi ANGELES MD DR: ADA/norah JOB#: [id number] / [id number]
[2017-11-21 06:19] VITALS: BP 169/84
[2017-11-21] MEDS ORDERED: CHOL500021 PO (06:48)
[2017-11-21] MEDS ORDERED: MAGN400O7 PO (06:51)
[2017-11-21] MEDS ORDERED: MAG30ORA2 PO (06:51)
[2017-11-21] MEDS ORDERED: METH29OI TP (06:52)
[2017-11-21] MEDS ORDERED: FERR325T14 PO (06:54)
[2017-11-21] MEDS ORDERED: OLAN2.5T3 PO (07:20)
[2017-11-21] MEDS ORDERED: BUSP5TAB PO (07:23)
[2017-11-21] MEDS ORDERED: QUET25TA PO (07:25)
[2017-11-21] MEDS: PANTOPRAZOLE 40 MG TABLET. PO SCH (07:36)
[2017-11-21] MEDS: ASCORBIC ACID 500 MG TABLET PO SCH (08:22)
[2017-11-21] MEDS: FERROUS SULFATE 325 MG TABLET. PO SCH (08:22)
[2017-11-21] MEDS: DONEPEZIL HCL 10 MG TABLET PO SCH (08:22)
[2017-11-21] MEDS: busPIRone 5 MG TABLET. PO SCH ×2 (08:23→11:55)
[2017-11-21] MEDS: QUEtiapine 25 MG TABLET. PO SCH ×2 (08:23→11:56)
--- NOTE | 2017-11-21 21:28 | PDOC ---
Exam Note: Jarrod Note: Please also refer to the separate dictated note~for this date of service dictated separately.~Patient seen individually. Discussed the patient with Nursing staff reviewed the chart.~Reviewed interim history and current functioning. Reviewed vital signs,~Labs/ Radiology~and current medications noted below. Continue current treatment with the changes noted in the dictated addendum note Assessment: Vital Signs: Vital Signs Date Time Temp Pulse Resp B/P (MAP) Pulse Ox O2 Delivery O2 Flow Rate FiO2 11/21/17 06:19 98.2 81 18 169/84 (112) 98 I&O Intake and Output 11/21/17 07:00 Intake Total 840 ml Balance 840 ml Intake Oral 840 ml # Voids 1 # Bowel Movements 1 Current Medications: Meds: Current Medications Alprazolam (Xanax) 0.5 mg 1X ONCE PO Last administered on 11/01/17at 19:25; Start 11/01/17 at 19:30; Stop 11/01/17 at 19:31; Status DC Alprazolam (Xanax) 0.25 mg STK-MED ONCE .ROUTE ; Start 11/01/17 at 19:21; Stop 11/01/17 at 19:22; Status DC Alprazolam (Xanax) 0.25 mg STK-MED ONCE .ROUTE ; Start 11/01/17 at 19:23; Stop 11/01/17 at 19:24; Status DC Donepezil HCl (Aricept) 10 mg DAILY PO Last administered on 11/21/17at 08:22; Start 11/02/17 at 09:00; Stop 11/21/17 at 14:03; Status DC Mirtazapine (Remeron) 7.5 mg QHS PO ; Start 11/01/17 at 22:00; Stop 11/01/17 at 22:00; Status DC Quetiapine Fumarate (SEROquel) 12.5 mg DAILYWLUN PO Last administered on at 12:39; Start 11/02/17 at 12:00; Stop 11/14/17 at 19:24; Status DC Quetiapine Fumarate (SEROquel) 25 mg TID@0900,1700,2100 PO Last administered on 11/14/17at 17:16; Start 11/01/17 at 22:00; Stop 11/14/17 at 19:24; Status DC Fluvoxamine Maleate (Luvox) 50 mg DAILY PO Last administered on 11/04/17at 08:03 ; Start 11/02/17 at 09:00; Stop 11/04/17 at 18:17; Status DC Acetaminophen (Tylenol) 650 mg PRN Q6HRS PRN PO PAIN / TEMP Last administered on 11/19/17at 16:02; Start 11/01/17 at 21:15; Stop 11/21/17 at 14:03; Status DC Ascorbic Acid (Vitamin C) 500 mg BID PO Last administered on 11/21/17at 08:22; Start 11/02/17 at 09:00; Stop 11/21/17 at 14:03; Status DC Bisacodyl (Dulcolax Tab) 10 mg PRN DAILY PRN PO CONSTIPATION Last administered on 11/20/17at 08:41; Start 11/01/17 at 21:15; Stop 11/21/17 at 14:03; Status DC Calcium Carbonate/ Glycine (Tums) 500 mg PRN Q4HRS PRN PO DYSPEPSIA; Start 06/10 at 21:30; Stop 11/21/17 at 14:03; Status DC Ferrous Gluconate (Fergon) 324 mg BID PO Last administered on 11/08/17at 09:25; Start 11/02/17 at 09:00; Stop 11/08/17 at 18:45; Status DC Pantoprazole Sodium (Protonix) 40 mg DAILYAC PO Last administered on 11/21/17at 07:36; Start 11/02/17 at 07:30; Stop 11/21/17 at 14:03; Status DC Magnesium Hydroxide (Milk Of Magnesia) 2,400 mg PRN QHS PRN PO CONSTIPATION Last administered on 11/05/17at 20:28; Start 11/01/17 at 21:30; Stop 11/21/17 at 14:03; Status DC Ondansetron HCl (Zofran Odt) 4 mg PRN Q6HRS PRN PO NAUSEA/VOMITING; Start 11/01 at 21:45; Stop 11/21/17 at 14:03; Status DC Multi-Ingredient Ointment (Analgesic [place]) 1 [place] PRN QID PRN TP MUSCLE PAIN; Start 11/01/17 at 21:15; Stop 11/21/17 at 14:03; Status DC Al Hydroxide/Mg Hydroxide (Mylanta Plus Xs) 15 ml PRN AFTMEALHC PRN PO DYSPEPSIA; Start 11/01/17 at 21:15; Stop 11/21/17 at 14:03; Status DC Mirtazapine (Remeron) 15 mg QHS PO Last administered on 11/20/17at 20:21; Start 11/01/17 at 21:29; Stop 11/21/17 at 14:03; Status DC Olanzapine (ZyPREXA ZYDIS) 2.5 mg PRN Q2HR PRN PO PSYCHOSIS Last administered on 11/20/17at 12:33; Start 11/03/17 at 08:00; Stop 11/21/17 at 14:03; Status DC Vitamin D (Vitamin D3) 50,000 unit WEEKLY PO Last administered on 11/18/17at 08: 49; Start 11/04/17 at 15:00; Stop 11/21/17 at 14:03; Status DC Fluvoxamine Maleate (Luvox) 75 mg DAILY PO Last administered on 11/06/17at 08:27 ; Start 11/05/17 at 09:00; Stop 11/06/17 at 19:21; Status DC Fluvoxamine Maleate (Luvox) 100 mg DAILY PO Last administered on 11/20/17at 08: 16; Start 11/07/17 at 09:00; Stop 11/20/17 at 18:15; Status DC Buspirone HCl (Buspar) 5 mg BID@0900,1300 PO Last administered on 11/16/17at 07: 42; Start 11/09/17 at 09:00; Stop 11/16/17 at 12:17; Status DC Ferrous Sulfate (Feosol) 325 mg DAILYWBKFT PO Last administered on 11/21/17at 08: 22; Start 11/09/17 at 08:00; Stop 11/21/17 at 14:03; Status DC Quetiapine Fumarate (SEROquel) 25 mg TID@0900,1300,1700 PO Last administered on 11/15/17at 08:38; Start 11/15/17 at 09:00; Stop 11/15/17 at 11:18; Status DC Quetiapine Fumarate (SEROquel) 37.5 mg TID@0900,1300,1700 PO Last administered on 11/21/17at 11:56; Start 11/15/17 at 13:00; Stop 11/21/17 at 14:03; Status DC Quetiapine Fumarate (SEROquel) 37.5 mg QHS PO Last administered on 11/20/17at 20 :22; Start 11/15/17 at 21:00; Stop 11/21/17 at 14:03; Status DC Buspirone HCl (Buspar) 5 mg TID PO Last administered on 11/21/17at 11:55; Start 11/16/17 at 14:00; Stop 11/21/17 at 14:03; Status DC Fluvoxamine Maleate (Luvox) 125 mg DAILY PO Last administered on 11/21/17at 08:24 ; Start 11/21/17 at 09:00; Stop 11/21/17 at 14:03; Status DC Active Scripts Active Reported Quetiapine Fumarate 25 Mg Tablet 37.5 Mg PO TID@0900,1300,1700 Buspirone Hcl 5 Mg Tablet 5 Mg PO TID Zyprexa (Olanzapine) 2.5 Mg Tablet 2.5 Mg PO PRN Q2HR PRN Ferrous Sulfate 325 Mg Tablet 325 Mg PO DAILYWBKFT Analgesic [place] (Methyl Salicylate/Menthol) 28 Gm Oint...g. 1 [place] TP PRN QID PRN Milk Of Magnesia (Magnesium Hydroxide) 400 Mg/5 Ml Oral.susp 2,400 Mg PO PRN QHS PRN Mag-Al Plus Xs Suspension (Mag Hydrox/Al Hydrox/Simeth) 30 Ml Oral.susp 30 Ml PO PRN AFTMEALHC PRN D3-50 (Cholecalciferol (Vitamin D3)) 50,000 Unit Capsule 50,000 Unit PO WEEKLY Zofran (Ondansetron Hcl) 4 Mg Tablet 4 Mg PO PRN Q6HRS PRN Fluvoxamine Maleate 50 Mg Tablet 125 Mg PO DAILY Seroquel (Quetiapine Fumarate) 25 Mg Tablet 37.5 Mg PO QHS Mirtazapine 15 Mg Tablet 15 Mg PO QHS Donepezil Hcl 10 Mg Tablet 10 Mg PO DAILY Tylenol (Acetaminophen) 325 Mg Tablet 650 Mg PO PRN Q6HRS PRN Maximum Acetaminophen dose is 4000 mg in 24 hours from all sources for adults Vitamin C (Ascorbic Acid) 500 Mg Tablet 500 Mg PO BID Calcium Carbonate 500 Mg Tablet 500 Mg PO PRN Q4HRS PRN Pantoprazole Sodium 40 Mg Tablet.dr 40 Mg PO DAILYAC Bisacodyl 5 Mg Tablet.dr 10 Mg PO PRN DAILY PRN I have reviewed the current psychotropics carefully including drug interactions. Risk benefit ratio favors no change other than as noted in my dictated progress note. Diagnosis: Problems: (1) Major neurocognitive disorder, due to vascular disease, with behavioral disturbance, mild (2) Alzheimer's dementia (3) Behavior problem (4) Delusion REX ANGELES MD November 21, 2017 21:28
--- NOTE | 2017-11-22 02:40 | PN ---
DATE: 11/20/2017 This is a late entry 11/20/2017 covers elements not covered in my initial note 11/20/2017. SUBJECTIVE: I met with the patient in the evening of 11/20/2017. The patient slept 7-3/4 hours previous evening. She was quite pleasant in the morning, lunchtime she was angry at another patient calling the other patient an idiot, agitated with noise around her, has to be to a lesser stimuli area and she does better. She had 2 bowel movements on 11/20/2017 with Dulcolax. Still somewhat obsessive. REVIEW OF SYSTEMS: No CV, , pulmonary, eye, ENT system symptoms on review. Reliability poor. MENTAL STATUS EXAM: Oriented to herself. Insight, judgment, recent and remote memory, attention, concentration, fund of knowledge poor, consistent with her diagnosis. Pleasant, verbal with me, oblivious of her surroundings, walks, bent forward quite a bit. LABORATORY DATA: Reviewed. IMPRESSION: Unchanged from initial note. PLAN: Continue psychotropics mentioned in my initial note. MAN Ifeanyi ANGELES MD DR: ADA/norah JOB#: [id number] / [id number]
--- NOTE | 2017-11-22 20:30 | DS ---
DATE OF DISCHARGE: 11/21/2017 DISCHARGE SUMMARY/PSYCHIATRIC PROGRESS NOTE This is a late entry for 11/21/2017, covers elements not covered in my initial note of 11/21/2017. REASON FOR ADMISSION: Please refer to the admission history for details. Briefly, the patient is a 72-year-old female, returns back to us from [facility] on account of being extremely combative with staff, aggressive towards peers, destroying property, increased agitation and having failed outpatient psychiatric interventions and prior inpatient stay with us, consequent to her significant dementia with delusions, behavioral disturbance. SIGNIFICANT FINDINGS AND CLINICAL COURSE: Following admission, the patient was seen daily individually by myself from a psychiatric standpoint, medical followup per Dr. Easton/Dr. Garsia. The patient is quite confused, wandering, labile in her mood, paranoid. Adjustments were made in her psychotropics and she seemed to respond to a combination of Luvox for her obsessive thought processes at 125 mg a day, Aricept 10 mg a day, Remeron 15 mg at bedtime, Seroquel 37.5 mg 4 times a day, Zyprexa p.r.n., BuSpar 5 mg 3 times a day. REVIEW OF SYSTEMS: Prior to discharge on 11/21/2017, no CV, , pulmonary, eye, ENT system symptoms on review. Reliability poor. MENTAL STATUS EXAM: Oriented to herself. Insight, judgment, recent and remote memory, attention, concentration, fund of knowledge poor, consistent with her diagnosis. She is pleasant, smiling, oblivious of her surroundings, but much less agitated and aggressive. CONDITION AT DISCHARGE: Improved. FINAL DIAGNOSES: Major neurocognitive disorder, Alzheimer, vascular with depression, delusion, behavioral disturbance; anxiety disorder, unspecified; impulse control disorder, unspecified. Rest unchanged from admission. DISCHARGE MEDICATIONS: Please refer to the [facility]AD. DISCHARGE INSTRUCTIONS: Outpatient psychiatric and medical followup at the retirement. Time for discharge day management greater than 30 minutes. MAN Ifeanyi ANGELES MD DR: ADA/norah JOB#: [id number] / [id number]
== END 2017-11-21 13:35 | disposition home or self-care (01) | DRG 57 ==
LOC: ER 18:35 → GEROPSY 20:37
PROVIDERS: ADMIT Psychiatry & Neurology Psychiatry; ATTEND Psychiatry & Neurology Psychiatry
DX: G30.9 Alzheimer's disease, unspecified (principal); F01.51 Vascular dementia, unspecified severity, with behavioral disturbance; F02.81 Dementia in other diseases classified elsewhere, unspecified severity, with behavioral disturbance; K59.09 Other constipation; E55.9 Vitamin D deficiency, unspecified; F63.9 Impulse disorder, unspecified; F41.9 Anxiety disorder, unspecified; M41.9 Scoliosis, unspecified; F32.9 Major depressive disorder, single episode, unspecified; I10 Essential (primary) hypertension; Z79.899 Other long term (current) drug therapy; Z91.040 Latex allergy status; Z91.041 Radiographic dye allergy status
CPT/HCPCS: 36415; 80048; 80053; 80061; 80076; 81001; 82306; 82607; 82947; 83036; 83540; 83550; 83735; 84436; 84443; 84480; 84484; 85025; 85027; 86593; 93005